=== PATIENT | male | born 1950 | race Caucasian/White ===

== ENCOUNTER → 2021-09-19 | Outpatient (CLI) | payer OTHER ==
--- NOTE | 2021-09-19 13:37 | DIREP ---
PROCEDURE:AORTIC ULTRASOUND COMPARISON:None. INDICATIONS:TOBACCO USER TECHNIQUE:Grayscale ultrasound was performed of the abdominal aorta. Spectral analysis and color-flow are also performed. FINDINGS: PROXIMAL AORTIC DIAMETER (cm):2.0 x 2.0 cmVelocity: 38.4 cm/s MID-AORTIC DIAMETER (cm):1.5 x 1.5 cmVelocity: 29.8 cm/s DISTAL AORTIC DIAMETER (cm):1.2 x 1.7 cmVelocity: 36.5 cm/s RIGHT COMMON ILIAC DIAMETER (cm):1.0 x 0.9 cmVelocity: 118.7 cm/s LEFT COMMON ILIAC DIAMETER (cm):0.9 x 1.2 cmVelocity: 54.3 cm/s CONCLUSION:No abnormality noted. Dictated by: SAIGE Physician on 09/19/2021 at 01:27 PM linda
== END | disposition home or self-care (01) ==
LOC: RAD 07:38
PROVIDERS: ATTEND Nurse Practitioner Family
DX: Z13.6 Encounter for screening for cardiovascular disorders (principal)
CPT/HCPCS: 76770

== ENCOUNTER 2021-10-15 08:44 | Inpatient (IN) | payer OTHER ==
[2021-10-15] VITALS (24 sets, daily range): BP systolic 115–158; BP diastolic 59–100
[~2021-10-15] VITALS: Ht 172.7 cm; Wt 57.4 kg
[2021-10-15] MEDS ORDERED: MORPHINE SULFATE IV STA ×2 (09:12)
[2021-10-15] MEDS ORDERED: ZOFRAN IV STA (09:12)
[2021-10-15] MEDS ORDERED: NS 1000ML 1,000 ML IV STA (09:12)
--- NOTE | 2021-10-15 09:15 | NUR ---
Ambulatory to ED rm6. c/o N/V/D since sunday night. Reports Colonoscopy procedure 06/12/21
[2021-10-15 09:18] LABS: BILIRUBIN,URINE 2+ (NEGATIVE)
--- NOTE | 2021-10-15 09:18 | ER.PDOC ---
General Chief Complaint: Nausea,Vomiting,Diarrhea Stated Complaint: N/V/ABD PAIN Time seen by MD: 09:16 Source: patient Exam Limitations: no limitations History of Present Illness Initial Comments Abdominal pain with nausea and vomiting status post colonoscopy 4 days ago. No fever or chills. He has not had a bowel movement since then. Severity/Quality: moderate, sharpness Radiation: no radiation Associated Symptoms: nausea/vomiting Exacerbated by: nothing Relieved By: nothing Allergies: Coded Allergies: No Known Allergies (Unverified , 10/15/21) Vital Signs First Vital Signs Date Time Temp Pulse Resp B/P (MAP) Pulse Ox O2 Delivery O2 Flow Rate FiO2 10/15/21 09:02 98.4 80 18 95 10/15/21 09:02 141/59 (86) Room Air* 0 21 Last Vital Signs Date Time Temp Pulse Resp B/P (MAP) Pulse Ox O2 Delivery O2 Flow Rate FiO2 10/15/21 10:33 98.4 68 18 148/76 (100) 95 Room Air* 0 21 Past Medical History Medical History: cardiac problems, hypertension Surgical History: other Family History Significant Family History: no pertinent family hx Social History Smoking: greater than 1 pack/day Alcohol Use: heavy Drug Use: none Constitutional: no symptoms reported EENTM: no symptoms reported Respiratory: no symptoms reported Cardiovascular: no symptoms reported Gastrointestinal: see HPI All Other Systems: Reviewed and Negative Physical Exam General Appearance: No Apparent Distress, WD/WN HEENT: PERRL/EOMI, Normal ENT Inspection, TMs Normal, Pharynx Normal Neck: Non-Tender, Full Range of Motion, Supple, Normal Inspection Respiratory: chest non-tender, lungs clear, normal breath sounds, no respiratory distress, no accessory muscle use Cardiovascular: Normal Peripheral Pulses, Regular Rate, Rhythm, No Edema, No Gallop, No JVD, No Murmur Gastrointestinal: Normal Bowel Sounds, No Organomegaly, No Pulsatile Mass, Hypoactive bowel sounds, Distended, Tenderness (generalized) Back: Normal Inspection, No CVA Tenderness, No Vertebral Tenderness Extremities: Normal Range of Motion, Non-Tender, Normal Inspection, No Pedal Edema, No Calf Tenderness, Normal Capillary Refill, Pelvis Stable Neurologic/Psychiatric: statement processor II-XII NML as Tested, No Motor/Sensory Deficits, Alert, Normal Mood/Affect, Oriented x 3 Skin: Normal Color, Warm/Dry Lymphatic: No Adenopathy Results/Orders Results/Orders Orders - CHERELLE ROJAS MD Cbc With Auto Diff (10/15/21 09:12) Comprehensive Metabolic Panel (10/15/21 09:12) Lipase (10/15/21 09:12) PT (10/15/21 09:12) Ct Abd/Pel With Iv Contrast (10/15/21 09:12) Partial Thromboplastin Time. (10/15/21 09:12) Urinalysis (10/15/21 09:12) Lactic Acid(Ml) (10/15/21 09:12) 0.9 % Sodium Chloride (Ns 1000ml) (10/15/21 09:12) Ondansetron Hcl/Pf (Zofran) (10/15/21 09:12) Morphine Sulfate (Morphine Sulfate) (10/15/21 09:12) Urine Culture (10/15/21 UNK) Blood Culture (10/15/21 10:32) Potassium Chloride-0.45% Nacl (Hns 1000m (10/15/21 10:32) Piperacillin Sodium/Tazobactam (Zosyn 3. (10/15/21 10:32) Vital Signs Date Time Temp Pulse Resp B/P (MAP) Pulse Ox O2 Delivery O2 Flow Rate FiO2 10/15/21 10:33 98.4 68 18 148/76 (100) 95 Room Air* 0 21 10/15/21 09:27 98.4 81 18 143/71 (95) 95 Room Air* 0 21 10/15/21 09:02 98.4 80 18 141/59 (86) 95 Room Air* 0 21 10/15/21 09:02 98.4 80 18 10/15/21 09:02 98.4 80 18 95 Administered Medications Medications (Trade) Dose Ordered Sig/Adali Route PRN Reason Start Time Stop Time Status Last Admin Dose Admin Morphine Sulfate (Morphine Sulfate) 4 mg STAT STAT IV 10/15/21 09:12 10/15/21 09:13 UNV 10/15/21 09:24 4 MG Ondansetron HCl (Zofran) 4 mg STAT STAT IV 10/15/21 09:12 10/15/21 09:13 UNV 10/15/21 09:24 4 MG Sodium Chloride 1,000 ml @ 1,200 mls/hr Q50M STAT IV 10/15/21 09:12 10/15/21 10:01 UNV 10/15/21 09:24 1,200 MLS/HR Laboratory Tests Test 10/15/21 09:01 10/15/21 09:12 10/15/21 09:27 White Blood Count 8.2 10^3/uL (4.5-11.0) Red Blood Count 4.56 10^6/uL (4.50-5.90) Hemoglobin 15.6 g/dL (13.9-16.3) Hematocrit 46.6 % (37.0-53.0) Mean Corpuscular Volume 102.2 fL (78-100) H Mean Corpuscular Hemoglobin 34.2 pg (26-34) H Mean Corpuscular Hemoglobin Concent 33.5 g/dL (33-36.5) Red Cell Distribution Width 12.5 % (11.5-14.5) Platelet Count 200 10^3/uL (150-400) Mean Platelet Volume 9.6 fL (7.8-11.0) Neutrophils (%) (Auto) 83.2 % (41.0-85.0) Lymphocytes (%) (Auto) 8.0 % (24.0-44.0) L Monocytes (%) (Auto) 8.0 % (5.0-12.0) Neutrophils # (Auto) 6.8 10^3/uL (1.8-7.7) Lymphocytes # (Auto) 0.66 10^3/uL1 (1.0-4.8) L Monocytes # (Auto) 0.7 10^3/uL (0.3-0.8) Absolute Immature Granulocyte (auto 0.03 10^3 u/L (0-2) Absolute Eosinophils (auto) 0.0 10^3/uL (0.0-0.2) Immature Granulocytes % 0.40 % (0.00-0.50) Eosinophils % 0.2 % (0.0-5.0) Basophils % 0.2 % (0.0-0.2) Basophils # 0.0 10^3/uL (0.0-0.1) Prothrombin Time 9.1 SEC (9.1-11.5) Prothrombin Time INR (Non-Therap) 0.9 Activated Partial Thromboplast Time 27.1 SEC (22.5-33.1) Sodium Level 134 mmol/L (132-145) Potassium Level 3.7 mmol/L (3.6-5.2) Chloride Level 93.0 mmol/L (96-109) L Carbon Dioxide Level 28.4 mmol/L (20.0-32) Anion Gap 16.3 Blood Urea Nitrogen 14 mg/dL (7-18) Creatinine 0.85 mg/dL (0.59-1.40) Estimated GFR () 106.9 (>/=60) Est GFR (CKD-EPI)(Non-Afr Bol[place]ian) 88.4 (>/=60) BUN/Creatinine Ratio 16.0 Glucose Level 106 mg/dL (70-110) Calcium Level 10.1 mg/dL (8.4-10.5) Total Bilirubin 1.5 mg/dL (0.2-1.0) H Aspartate Amino Transferase (AST) 28 U/L (0-35) Alanine Aminotransferase (ALT) 27 U/L (12-78) Alkaline Phosphatase 84 U/L (50-136) Total Protein 8.1 g/dL (6.4-8.2) Albumin 3.4 g/dL (3.4-5.0) Globulin 4.7 Albumin/Globulin Ratio 0.723 Lipase 24 U/L (114-286) L Urine Collection Type UNKNOWN Urine Color FORD Urine Appearance CLEAR Urine Bilirubin 2+ (NEGATIVE) H Urine Ictotest POSITIVE (NEGATIVE) H Urine Ketones TRACE (NEGATIVE) H Urine Specific [place] 1.010 (1.005-1.030) Urine pH 6.0 (4.5-8.0) Urine Protein 1+ (NEGATIVE) H Urine Urobilinogen 4.0 E.U./dL (0.2) Urine Nitrate POSITIVE (NEGATIVE) H Urine Leukocyte Esterase NEGATIVE (NEGATIVE) Urine Glucose (Auto)(UA) NEGATIVE (NEGATIVE) Urine Ketones (Manual) NEGATIVE (NEGATIVE) Urine Blood NEGATIVE (NEGATIVE) Urine RBC 0-2 RBC/HPF (NONE SEEN) Urine WBC 0-2 WBC/HPF (0-2) Urine Squamous Epithelial Cells FEW (<=FEW) Urine Calcium Oxalate Crystals FEW (NONE SEEN) A Urine Bacteria FEW (NONE SEEN) H Lactic Acid Level 1.4 mmol/L (0.5-1.9) Progress Progress CT abdomen/pelvis: Free fluid and small amount of free air is noted in the abdomen compatible with bowel perforation. 2. Multiple dilated loops of small bowel and colon without point of transition compatible with ileus pattern. ER DEPART Departure Time of Disposition: 10:54 Disposition: 09 ADMITTED INPATIENT Impression: Primary Impression: Perforated bowel Additional Impression: UTI (urinary tract infection) Condition: Stable Referrals: RAUL SEGAL (PCP) PRIMARY CARE PROVIDER Comments Admitted to Dr. Gibson, spoke with Dr. Bustamante who is consulting. Duration or Time Spent with Pa: 60 min Problem Qualifiers Additional Impression: UTI (urinary tract infection) Urinary tract infection type: site unspecified Hematuria presence: without hematuria Qualified Codes: N39.0 - Urinary tract infection, site not specified CHERELLE ROJAS MD Oct 15, 2021 09:18
[2021-10-15 09:45] LABS: BASOPHIL % 0.2 % (0.0-0.2); EOSINOPHIL % 0.2 % (0.0-5.0); LYMPHOCYTES # 0.66 10^3/uL1 (1.0-4.8); MEAN CORP HGB 34.2 pg (26-34); MONOCYTES # 0.7 10^3/uL (0.3-0.8); NEUTROPHIL # 6.8 10^3/uL (1.8-7.7); NEUTROPHILS % 83.2 % (41.0-85.0); RED CELL DISTRIBUTION WIDTH 12.5 % (11.5-14.5)
[2021-10-15 09:54] LABS: CARBON DIOXIDE 28.4 mmol/L (20.0-32)
--- NOTE | 2021-10-15 10:30 | DIREP ---
PROCEDURE:CT ABDOMEN/PELVIS W/ CONTRAST COMPARISON:None. INDICATIONS:Generalized abdominal pain and distension S/P colonoscopy 4 days ago TECHNIQUE:Axial images were created through the abdomen and pelvis with non-ionic intravenous contrast material. No oral contrast was administered. Sagittal and coronal reconstructions were performed from source images. FINDINGS: LUNG BASES:4 mm noncalcified nodule right posterior costophrenic sulcus image 11 series 4. Several additional scattered 2-3 mm nodules are also present at the lung bases. Dense coronary vascular calcifications. LIVER:Normal. No significant liver lesions are identified. BILIARY:Normal. No visible dilatation or calcification. PANCREAS:Normal. No lesion, fluid collection, ductal dilatation, or atrophy. SPLEEN:Normal. No enlargement or focal lesion. ADRENALS:Normal. No mass or enlargement. URINARY TRACT:Normal. No focal lesions or hydronephrosis. AORTA/VASCULAR:There are aortic atherosclerotic calcifications present. No aneurysm. RETROPERITONEUM:Normal. No mass or adenopathy. BOWEL/MESENTERY:Multiple dilated loops of small bowel and fluid and gas-filled colon without point of transition. The appearance suggests ileus. There is free fluid noted primarily in the perihepatic region right pericolic gutter together with free intraperitoneal air. The appearance is most consistent with bowel perforation. Site of perforation is not clearly evident. Borderline sized appendix ABDOMINAL WALL:Normal. No mass or hernia. PELVIC ORGANS:Normal. No visible mass. Pelvic organs appropriate for patient age. BONES:Normal for age. No bony lesion or acute fracture. OTHER:Negative. CONCLUSION: 1. Free fluid and small amount of free air is noted in the abdomen compatible with bowel perforation. 2. Multiple dilated loops of small bowel and colon without point of transition compatible with ileus pattern. 3. This report was called by telephone at 10:28 am on October 15, 2021 to John Duarte Mba . Dictated by: Navneet Zhu MD on 10/15/2021 at 10:20 AM
[2021-10-15] MEDS ORDERED: ZOSYN 3.375 GM 3.375 GM in NS 100ML 100 ML IV STA (10:32)
[2021-10-15] MEDS ORDERED: HNS 1000ML/KCL 20MEQ 1,000 ML IV STA (10:32)
--- NOTE | 2021-10-15 10:34 | NUR ---
Lab and diagnostic results compelted. Dr. Lopez [facility]
[2021-10-15] MEDS ORDERED: NS 100ML 100 ML IV ONE ×3 (10:42→19:18)
[2021-10-15] MEDS ORDERED: HNS 1000ML/KCL 20MEQ 1,000 ML ONE (10:42)
--- NOTE | 2021-10-15 10:42 | NUR ---
[facility] Dr. Mba speaking to patient about other facility options.
--- NOTE | 2021-10-15 10:46 | NUR ---
Dr. Woodruff on phone with Dr. Bowles about possible surgery.
--- NOTE | 2021-10-15 11:03 | PCM.EKG ---
[facility] Test Date: 2021-10-15 Test Time: 10:54:39 Pat Name: JUSTIN ALFONSO Department: Room: 340 Gender: M Displayer: TAYLOR : 1950 Requested By: CHERELLE ROJAS Order Number: [id number] Reading MD: Cherelle ROJAS Measurements Intervals [place] Rate: 76 P: 67 [place]: 153 QRS: -1 QRSD: 103 T: 8 QT: 397 QTc: 447 Interpretive Statements Sinus rhythm Borderline low voltage, extremity leads No previous ECG available for comparison Electronically Signed On 10-17-2021 7:21:07 CDT by Cherelle ROJAS Please click the below link to view image of tracing.
--- NOTE | 2021-10-15 11:12 | NUR ---
Pt placement awaiting eval of GI surgeon.
[2021-10-15] MEDS ORDERED: D5LR 1000ML/KCL 20MEQ 1,000 ML IV SCH (12:00)
--- NOTE | 2021-10-15 12:12 | PCM.HP ---
History of Present Illness Reason for Visit: Abdominal pain History of Present Illness 71-year-old male with history of hypertension, cigarette smoker,? COPD presented emergency room with abdominal pain and distention. Patient had a colonoscopy few days ago at the [facility]. Patient started having abdominal pain and distention. Denies fever or chills.Work-up in the emergency room including CT abdomen pelvis:1. Free fluid and small amount of free air is noted in the abdomen compatible with bowel perforation. Showed signs of bowel perforation with free fluid and air. Surgeon was consulted. Patient is being taken to the OR. Past Medical History Cardiac: HTN Pulmonary: COPD Past Surgical History: No pertinent hx Past Social History Smoke: 1 pack per day Drugs: None Travel Hx EBOLA RISK:Travel to/contact w: No Review of Systems Constitutional: No: Fever, Chills Gastrointestinal: Nausea, Abdominal Pain, Other (Distention) Other Review of other 14 systems negative except as mentioned above in history of present illness. Allergies: Coded Allergies: No Known Allergies (Unverified , 10/15/21) Exam Vital Signs Vital Signs Date Time Temp Pulse Resp B/P (MAP) Pulse Ox O2 Delivery O2 Flow Rate FiO2 10/15/21 10:33 98.4 68 18 148/76 (100) 95 Room Air* 0 21 General Appearance: Alert, Oriented X3, mild distress HEENT: Atraumatic, PERRLA Respiratory: Clear to auscultation, Normal air movement Cardiovascular: Regular rate, Normal S1, Normal S2 Abdominal: Other (Distended, tender, bowel sounds hypoactive) Extremities: No clubbing, No cyanosis Skin: No lesions Neuro: Normal speech, Normal tone Psych/Mental Status: Mental status NL, Mood NL Assessment/Plan Assessment/Plan Assessment/Plan 71-year-old male with history of hypertension, cigarette smoker,? COPD presented emergency room with abdominal pain and distention. Patient had a colonoscopy few days ago at the [facility]. Patient started having abdominal pain and distention. Denies fever or chills.Work-up in the emergency room inclu ding CT abdomen pelvis:1. Free fluid and small amount of free air is noted in the abdomen compatible with bowel perforation. Showed signs of bowel perforation with free fluid and air. Surgeon was consulted. Patient is being taken to the OR. Plan Admit N.p.o. IV fluids IV antibiotic Surgeon consulted. Patient is being taken to the OR GI prophylaxis pantoprazole DVT prophylaxis SCDs, further prophylaxis as per surgeon postoperative Reconcile home meds Expect length of stay more than 1 midnight Case discussed with ER physician and surgeon Dr. Bustamante Problems: (1) Perforated bowel Status: Acute ICD Code: K63.1 - Perforation of intestine (nontraumatic) SNOMED: 75922090 (2) Cigarette smoker Status: Chronic ICD Code: F17.210 - Nicotine dependence, cigarettes, uncomplicated SNOMED: 77843686 (3) Hypertension Status: Chronic ICD Code: I10 - Essential (primary) hypertension SNOMED: 30277654 (4) COPD (chronic obstructive pulmonary disease) Status: Chronic ICD Code: J44.9 - Chronic obstructive pulmonary disease, unspecified SNOMED: 43044495 MELINDA VEGA MD Oct 15, 2021 12:12
--- NOTE | 2021-10-15 12:23 | PRM.CONS ---
CONSULTATION CONSULTATION Indication: Asked to see patient for several days of abdominal pain s/p colonoscopy, with free air on CT. HPI/CC: Patient had a colonoscopy in the OR in [place] on Sunday. They were told he had three large polyps removed. They are not aware of where they were or how they were removed. He did not feeling like eating with his family afterward, and just went to bed. When he woke up in the morning on , he had pain in right and left gutter areas, and just did not feel well. He has not eaten or really been unable to drink since then. He has not had a BM, either. He continues to complain of pain across mid abdomen, right and left gutters. He had several episodes of emesis yesterday, and one today. Morphine helped initially, but is now wearing off. PMH?PSH: HTN, COPD PE: Patient is awake, alert and oriented x 3. Neck is supple without lymphadenopathy or bruit. Heart is regular rate and rhythm. Abdomen is slightly firm in the center and distended, minimal to no BS, tender throughout with voluntary guarding. No rigidity. Good pulses and ROM in all extremities. Neurologically, there is no evidence of focal deficits. Studies: Laboratory Tests Test 10/15/21 09:01 10/15/21 09:12 10/15/21 09:27 White Blood Count 8.2 10^3/uL (4.5-11.0) Red Blood Count 4.56 10^6/uL (4.50-5.90) Hemoglobin 15.6 g/dL (13.9-16.3) Hematocrit 46.6 % (37.0-53.0) Mean Corpuscular Volume 102.2 fL (78-100) Mean Corpuscular Hemoglobin 34.2 pg (26-34) Mean Corpuscular Hemoglobin Concent 33.5 g/dL (33-36.5) Red Cell Distribution Width 12.5 % (11.5-14.5) Platelet Count 200 10^3/uL (150-400) Mean Platelet Volume 9.6 fL (7.8-11.0) Neutrophils (%) (Auto) 83.2 % (41.0-85.0) Lymphocytes (%) (Auto) 8.0 % (24.0-44.0) Monocytes (%) (Auto) 8.0 % (5.0-12.0) Neutrophils # (Auto) 6.8 10^3/uL (1.8-7.7) Lymphocytes # (Auto) 0.66 10^3/uL1 (1.0-4.8) Monocytes # (Auto) 0.7 10^3/uL (0.3-0.8) Absolute Immature Granulocyte (auto 0.03 10^3 u/L (0-2) Absolute Eosinophils (auto) 0.0 10^3/uL (0.0-0.2) Immature Granulocytes % 0.40 % (0.00-0.50) Eosinophils % 0.2 % (0.0-5.0) Basophils % 0.2 % (0.0-0.2) Basophils # 0.0 10^3/uL (0.0-0.1) Prothrombin Time 9.1 SEC (9.1-11.5) Prothrombin Time INR (Non-Therap) 0.9 Activated Partial Thromboplast Time 27.1 SEC (22.5-33.1) Sodium Level 134 mmol/L (132-145) Potassium Level 3.7 mmol/L (3.6-5.2) Chloride Level 93.0 mmol/L (96-109) Carbon Dioxide Level 28.4 mmol/L (20.0-32) Anion Gap 16.3 Blood Urea Nitrogen 14 mg/dL (7-18) Creatinine 0.85 mg/dL (0.59-1.40) Estimated GFR () 106.9 (>/=60) Est GFR (CKD-EPI)(Non-Afr [place]ian) 88.4 (>/=60) BUN/Creatinine Ratio 16.0 Glucose Level 106 mg/dL (70-110) Calcium Level 10.1 mg/dL (8.4-10.5) Total Bilirubin 1.5 mg/dL (0.2-1.0) Aspartate Amino Transf (AST/SGOT) 28 U/L (0-35) Alanine Aminotransferase (ALT/SGPT) 27 U/L (12-78) Alkaline Phosphatase 84 U/L (50-136) Total Protein 8.1 g/dL (6.4-8.2) Albumin 3.4 g/dL (3.4-5.0) Globulin 4.7 Albumin/Globulin Ratio 0.723 Lipase 24 U/L (114-286) Urine Collection Type UNKNOWN Urine Color FORD Urine Appearance CLEAR Urine Bilirubin 2+ (NEGATIVE) Urine Ictotest POSITIVE (NEGATIVE) Urine Ketones TRACE (NEGATIVE) Urine Specific [place] 1.010 (1.005-1.030) Urine pH 6.0 (4.5-8.0) Urine Protein 1+ (NEGATIVE) Urine Urobilinogen 4.0 E.U./dL (0.2) Urine Nitrate POSITIVE (NEGATIVE) Urine Leukocyte Esterase NEGATIVE (NEGATIVE) Urine Glucose (Auto)(UA) NEGATIVE (NEGATIVE) Urine Ketones (Manual) NEGATIVE (NEGATIVE) Urine Blood NEGATIVE (NEGATIVE) Urine RBC 0-2 RBC/HPF (NONE SEEN) Urine WBC 0-2 WBC/HPF (0-2) Urine Squamous Epithelial Cells FEW (<=FEW) Urine Calcium Oxalate Crystals FEW (NONE SEEN) Urine Bacteria FEW (NONE SEEN) Lactic Acid Level 1.4 mmol/L (0.5-1.9) A/P: Discussed with the and patient that he has a perforation of the bowel, that likely happened during or immediately after the colonoscopy. Since he is so far out, and has so much free fluid and air, we can not assume that it has sealed. He requires surgery to evaluate his entire colon, washout, and possible drain placement. He was made aware of the possible outcomes, risks, benefits, alternatives, and compldoes not have a ications associated with the procedure. These include, but are not limited to: IN, , dysrhythmia, bleeding, infection, need for drains, bowel repair, bowel resection, placement of drains, ostomy, further procedures and surgeries for subsequent abscesses or possible takedown if ostomy is used at this time. The voice understanding, and wish to proceed. They do not wish to transfer to [place]. OR does not have a surgeon this weekend. Dr. Bergeron has seen the patient and will assist in care. ICU bed reserved for postop. VITALS REVIEW VITALS Vital Sign - Last 24 Hours 10/15/21 10/15/21 10/15/21 10/15/21 09:02 09:02 09:02 09:27 Temp 98.4 98.4 98.4 98.4 Pulse 80 80 80 81 Resp 18 18 18 18 B/P (MAP) 141/59 (86) 143/71 (95) Pulse Ox 95 95 95 O2 Delivery Room Air* Room Air* O2 Flow Rate 0 0 FiO2 21 21 10/15/21 10:33 Temp 98.4 Pulse 68 Resp 18 B/P (MAP) 148/76 (100) Pulse Ox 95 O2 Delivery Room Air* O2 Flow Rate 0 FiO2 21 LABS LAB RESULTS Laboratory Tests Test 10/15/21 09:01 10/15/21 09:12 10/15/21 09:27 White Blood Count 8.2 10^3/uL (4.5-11.0) Red Blood Count 4.56 10^6/uL (4.50-5.90) Hemoglobin 15.6 g/dL (13.9-16.3) Hematocrit 46.6 % (37.0-53.0) Mean Corpuscular Volume 102.2 fL (78-100) Mean Corpuscular Hemoglobin 34.2 pg (26-34) Mean Corpuscular Hemoglobin Concent 33.5 g/dL (33-36.5) Red Cell Distribution Width 12.5 % (11.5-14.5) Platelet Count 200 10^3/uL (150-400) Mean Platelet Volume 9.6 fL (7.8-11.0) Neutrophils (%) (Auto) 83.2 % (41.0-85.0) Lymphocytes (%) (Auto) 8.0 % (24.0-44.0) Monocytes (%) (Auto) 8.0 % (5.0-12.0) Neutrophils # (Auto) 6.8 10^3/uL (1.8-7.7) Lymphocytes # (Auto) 0.66 10^3/uL1 (1.0-4.8) Monocytes # (Auto) 0.7 10^3/uL (0.3-0.8) Absolute Immature Granulocyte (auto 0.03 10^3 u/L (0-2) Absolute Eosinophils (auto) 0.0 10^3/uL (0.0-0.2) Immature Granulocytes % 0.40 % (0.00-0.50) Eosinophils % 0.2 % (0.0-5.0) Basophils % 0.2 % (0.0-0.2) Basophils # 0.0 10^3/uL (0.0-0.1) Prothrombin Time 9.1 SEC (9.1-11.5) Prothrombin Time INR (Non-Therap) 0.9 Activated Partial Thromboplast Time 27.1 SEC (22.5-33.1) Sodium Level 134 mmol/L (132-145) Potassium Level 3.7 mmol/L (3.6-5.2) Chloride Level 93.0 mmol/L (96-109) Carbon Dioxide Level 28.4 mmol/L (20.0-32) Anion Gap 16.3 Blood Urea Nitrogen 14 mg/dL (7-18) Creatinine 0.85 mg/dL (0.59-1.40) Estimated GFR () 106.9 (>/=60) Est GFR (CKD-EPI)(Non-Afr [place]ian) 88.4 (>/=60) BUN/Creatinine Ratio 16.0 Glucose Level 106 mg/dL (70-110) Calcium Level 10.1 mg/dL (8.4-10.5) Total Bilirubin 1.5 mg/dL (0.2-1.0) Aspartate Amino Transf (AST/SGOT) 28 U/L (0-35) Alanine Aminotransferase (ALT/SGPT) 27 U/L (12-78) Alkaline Phosphatase 84 U/L (50-136) Total Protein 8.1 g/dL (6.4-8.2) Albumin 3.4 g/dL (3.4-5.0) Globulin 4.7 Albumin/Globulin Ratio 0.723 Lipase 24 U/L (114-286) Urine Collection Type UNKNOWN Urine Color FORD Urine Appearance CLEAR Urine Bilirubin 2+ (NEGATIVE) Urine Ictotest POSITIVE (NEGATIVE) Urine Ketones TRACE (NEGATIVE) Urine Specific [place] 1.010 (1.005-1.030) Urine pH 6.0 (4.5-8.0) Urine Protein 1+ (NEGATIVE) Urine Urobilinogen 4.0 E.U./dL (0.2) Urine Nitrate POSITIVE (NEGATIVE) Urine Leukocyte Esterase NEGATIVE (NEGATIVE) Urine Glucose (Auto)(UA) NEGATIVE (NEGATIVE) Urine Ketones (Manual) NEGATIVE (NEGATIVE) Urine Blood NEGATIVE (NEGATIVE) Urine RBC 0-2 RBC/HPF (NONE SEEN) Urine WBC 0-2 WBC/HPF (0-2) Urine Squamous Epithelial Cells FEW (<=FEW) Urine Calcium Oxalate Crystals FEW (NONE SEEN) Urine Bacteria FEW (NONE SEEN) Lactic Acid Level 1.4 mmol/L (0.5-1.9) DONAVAN CAMARA MD Oct 15, 2021 12:23
[2021-10-15] MEDS ORDERED: DECADRON ONE (12:32)
[2021-10-15] MEDS ORDERED: XYLOCAINE 2% 5ML VIAL ONE (12:32)
[2021-10-15] MEDS ORDERED: DIPRIVAN IV ONE (12:33)
[2021-10-15] MEDS ORDERED: ZEMURON IV ONE (12:33)
[2021-10-15] MEDS ORDERED: SUBLIMAZE ONE (12:34)
[2021-10-15] MEDS ORDERED: DILAUDID ONE ×2 (12:34→15:28)
[2021-10-15] MEDS ORDERED: SENSORCAINE-MPF 0.25% VIAL ONE (12:36)
[2021-10-15] MEDS ORDERED: WATER ONE (12:41)
[2021-10-15] MEDS ORDERED: SODIUM CHLORIDE IRR BOTTLE IR ONE (12:41)
[2021-10-15] MEDS ORDERED: EXPAREL 266 MG/20 ML VIAL IJ ONE (12:44)
[2021-10-15] MEDS ORDERED: BRIDION IV ONE (12:46)
[2021-10-15] MEDS ORDERED: LACTATED RINGERS 1,000 ML ONE ×3 (12:49→15:52)
[2021-10-15] MEDS ORDERED: XYLOCAINE 1%-EPI 1:100,000 ONE (13:14)
[2021-10-15] MEDS ORDERED: MARCAINE 0.5% ONE ×2 (13:15→13:16)
[2021-10-15] MEDS ORDERED: OFIRMEV 100 ML IV ONE (13:26)
[2021-10-15] MEDS ORDERED: ZOSYN 3.375 GM 3.375 GM in NS 100ML 100 ML IV SCH ×2 (14:00→18:00)
--- NOTE | 2021-10-15 14:55 | PRM.OPH ---
OPERATIVE REPORT OPERATIVE REPORT Indications: Patient status post colonoscopy at the [facility] in [place] on Sunday. He states he has not been able to eat since that time. He presents here with abdominal pain, nausea and vomiting as well as abdominal distention since morning.Patient has been afebrile, and his labs are essentially within normal limits. CT scan showed free air and a large amount of fluid in the hepatic flexure area, and up over the top of the right lobe of the liver. There is also a collection in the left lower quadrant. There is an significant inflammatory reaction in the mesentery in both of these locations also. There is a question if the appendix was slightly thickened. This was a presumed pe rforated viscus, following colonoscopy. Preoperative diagnosis: Abdominal pain and distention following colonoscopy, free air and fluid on CT scan, presumed perforated colon status post colonoscopy, and a possible inflamed or thickened appendix Postoperative diagnosis: Inflammatory fluid/serous fluid noted throughout the abdomen, distended loops of bowel from ileus, thickened inflammatory exudate and adhesions at transverse colon near the hepatic flexure, which revealed a 7 mm in length perforation, with the internal mucosa being black and necrotic, and a similar fluid collection in the left lower quadrant. The appendix was also slightly thickened by palpation and visualization, and serosa appeared healthy. Procedure: Exploratory laparotomy, lysis of adhesions, drainage of intra- abdominal fluid collections/abscesses, excision of perforation site with primary closure, appendectomy with inversion of the stump, placement of drains x2 in the right upper quadrant overlying the liver and near the hepatic flexure, and a second drain in the left lower quadrant. Surgeon: Donavan Camara MD Anesthesia: Harpreet Alejo, [facility], [facility], [facility] Specimens: Cultures of intra-abdominal abscesses/fluid, excision site of perforation, appendix (appendix is in multiple pieces due to its positioning and length of the stump EBL: 21 cc Complications: None Technique of procedure: After full disclosure of the CT findings, and risks of the procedure, the patient and his were advised that they could either take him to [place] for surgery or stay here. They opted to stay here. The consent included the risk, benefits, alternatives, complications, possible outcomes and procedures that would be necessary today. They were made aware that the risks include, but are not limited to: AR, , dysrhythmia, bleeding, perforation, the need for multiple drains, the need for further surgeries or procedures, the possibility of requiring a bowel resection, the possibility of requiring an ostomy, and then subsequently a takedown. They voiced understanding of these issues and wished to proceed. Patient was brought over to the operating room. Patient was then taken back to the operating room on [facility] and transferred to the bed. He was placed in the supine position. Adequate analgesia and anesthesia were obtained, the patient was intubated without incident. A Thomas catheter was placed under sterile conditions, with return of clear dark urine prior to the balloon being inflated The area of the abdomen was shaved, prepped and draped in the usual sterile fashion. A timeout was observed by all staff in room to verify we had the appropriate patient and planned procedure. An NG tube was placed by anesthesia and secured A midline incision from the manubrium to the pubis was outlined with skin marker, moving to the right of the patient's umbilicus. Once patient was asleep and draped, local anesthetic was injected around the umbilicus as well as superiorly and inferiorly approximately 3 inches. Incision was made with a 10 blade. Bovie cautery was used to traverse the subcutaneous tissue, down to the fascia, cauterizing any bleeders along the way. The fascia was opened slowly with electrocautery, and continued down, until a small opening was made approximately 3 inches above the umbilicus in the midline. Suction was utilized. This was clear yellow to slightly inflammatory fluid and exudate. There was no significant foul odor. It was suctioned, and Bovie cautery was used to open the incision the rest of the way. Ultimately, was difficult to reach over the patient's liver, so the incision was expanded approximately 2 inches superiorly. Once the abdomen was opened, cultures were obtained of the fluid collection from the left lower quadrant. These were sent back as specimens. The Bookwalter was placed appropriately. Moistened towels were used against the patient's skin verifying that no bowel was cut underneath the retractors, and it was held open. The small bowel appeared to be distended, but it was mostly air. There is not a significant amount of fluid or solid stool in there. The bowel itself appeared to be healthy. The majority of the colon also appeared to be healthy and soft. As the bowel was run, and I did reach up in the right upper quadrant, to verify we had drainage of all the fluid over the liver. As the transverse colon was run, significant amount of inflammatory exudate, and thickened fat was noted near the hepatic flexure. This tissue appeared to have sealed the colon perforation. It was slowly taken down, and the large perforation of approximately 7mm transversely was noted. Much of this tissue appeared nonviable, and it was trimmed back with an 11 blade. The mucosa on the inside appeared to be black and necrotic as though it was the site of a cautery burn. This was resected, and a primary closure was done in a transverse fashion, utilizing interrupted 2-0 silk. This was tested multiple times, and was watertight. The rest of the tissue appeared healthy. All adhesions in this area were taken down for lysis of adhesions. I then went from the patient's right side to his left. Irrigation was carried out in the hepatic flexure region and up over the liver. Several liters were used to irrigate over the liver, and verify that there were no loculations or other thickened tissue. The small bowel was run from The ligament of Treitz to theAppendix. It all appeared to be normal although slightly distended. No areas appeared nonviable. No areas appeared as though they were anywhere near perforation or separation of serosa. At the appendix did appear slightly thickened and healthy. Due to the possible findings on CT scan and its appearance, I opted to Perform an appendectomy. Hemostats were utilized to make a window between the mesoappendix and the appendix. The appendix was clamped with hemostats x2 proximally, and then 1 distally. It was then sharply divided. Hemostat was also used to go across the mesoappendix which was divided. The mesoappendix was tied off with a stick tie. There was a loss of approximately 4 days of blood from this area. It was then without evidence of leak after the tie. Turned my attention to the stump of the appendix, which appeared rather long, as though it had been held in place and curved secondary to the mesoappendix. This was opened up, and An additional half inch or so of the appendiceal stump was removed with a hemostat at the base. A tie was utilized to tie off the appendix. It was then inverted after a pursestring suture had been placed. The pursestring was tied down as the stump was inverted, and closed quite nicely. There was no evidence of bleed or leak in this area. It was irrigated. Expiration of the left lower quadrant was carried out, and it similarly had a collection of serosal and inflammatory fluid. This was irrigated, and the bowel was run from the peritoneal reflection at the rectum back up all the way around to the appendix again. The only abnormality was that which had been repaired near the hepatic flexure. This was run at least 3 times. The small bowel was run twice, with no other abnormalities being noted. The abdomen was irrigated again with multiple liters, verifying that no loculations existed in the previously known fluid collections overlying the liver or in the left lower quadrant. Francesco drain was placed in the right upper quadrant, and I was careful to lay loop up over the right lobe of the liver, and ending up near but not on the closure at the hepatic flexure. It was secured in place with a 2-0 silk. Similarly, a Francesco drain was placed in the left lower quadrant, and placed down in the dependent portion, near the peritoneal reflection. All the bowel appeared normal again. It was secured with a 2-0 silk also. The retractors were all removed, and the fascia at the abdominal wall was lift ed, so that the small bowel could be placed back in the abdomen.A fish was placed.Looped 0 PDS was used for a fascial closure beginning at the superior aspect, and extending down to just below the umbilicus. The fascia was then removed, and placed at the inferior aspect of the incision. Similarly, looped 0 PDS was utilized from the inferior aspect of the incision, until it met the previous and suture. The needle was cut. The sutures were tied together with good closure and no defects being noted. The subcutaneous tissue was irrigated. Skin jessica were placed. Dressings and binder were placed, including Drain sponges around the drains. Toward the end of the procedure, the urine began to lighten up, as he was better hydrated. Patient was stable throughout the procedure. Due to his age and medical problems, specifically the COPD, and the possibility of worsening postsurgery, patient will be sent to the ICU.Patient discussed with Dr. Monique, the hospitalist, who concurs with plan. Dr. Lopez of the ER was also notified. DONAVAN CAMARA MD Oct 15, 2021 14:55
[2021-10-15] MEDS ORDERED: GENASYME PO PRN (15:00)
[2021-10-15] MEDS ORDERED: D5W-1/2 NS/KCL 20MEQ 1,000 ML IV SCH (15:00)
[2021-10-15] MEDS ORDERED: DILAUDID IV ONE ×2 (15:30→15:40)
--- NOTE | 2021-10-15 15:34 | NUR ---
1330: PER DR HAYNES, BEDREST FOR 2 HOURS (UP AT 1515) AND NS 0.9% AT 100ML/HR PER ONE LITER
[2021-10-15] MEDS: PHENERGAN IV SCH ×2 (16:00→20:35)
[2021-10-15] MEDS: D5LR 1000ML/KCL 20MEQ 1,000 ML IV SCH (17:14)
[2021-10-15] MEDS: LOVENOX SQ SCH (17:30)
--- NOTE | 2021-10-15 17:54 | NUR ---
1559: RECEIVED PATIENT FROM OR S/P EXPLORATORY LAP CLOSURE HEPATIC FLEXURE, EXCISION FROM VIABLE COLON TISSUE, APPY. SERVICES OF DR JAX GO AND DR MELINDA MORENO. VSS. DRESSINGS CLEAN DRY INTACT.
[2021-10-15] MEDS ORDERED: NS 25ML 25 ML IV ONE (19:13)
[2021-10-15] MEDS: ZOSYN 3.375 GM 3.375 GM in NS 100ML 100 ML IV SCH (19:21)
[2021-10-15] MEDS: NICOTINE 21MG PATCH TD SCH (20:42)
[2021-10-16] VITALS (30 sets, daily range): BP systolic 140–182; BP diastolic 54–88
[2021-10-16] MEDS ORDERED: ZOFRAN IV PRN (01:00)
[2021-10-16] MEDS ORDERED: NS 100ML 100 ML IV ONE (01:47)
[2021-10-16] MEDS: MORPHINE SULFATE IV PRN ×2 (01:57→04:43)
[2021-10-16] MEDS: ZOSYN 3.375 GM 3.375 GM in NS 100ML 100 ML IV SCH ×4 (01:58→21:22)
[2021-10-16] MEDS: D5LR 1000ML/KCL 20MEQ 1,000 ML IV SCH ×4 (01:58→21:43)
[2021-10-16] MEDS: PHENERGAN IV SCH ×6 (03:38→21:22)
[2021-10-16] MEDS: LOVENOX SQ SCH ×2 (05:33→18:09)
[2021-10-16 05:51] LABS: BASOPHIL % 0.2 % (0.0-0.2); LYMPHOCYTES # 0.41 10^3/uL1 (1.0-4.8); LYMPHOCYTES % 6.2 % (24.0-44.0); MEAN CORP HGB 33.8 pg (26-34); MONOCYTES # 0.6 10^3/uL (0.3-0.8); MONOCYTES % 9.4 % (5.0-12.0); NEUTROPHIL # 5.6 10^3/uL (1.8-7.7); NEUTROPHILS % 83.9 % (41.0-85.0); PLATELET COUNT 186 10^3/uL (150-400); RED CELL DISTRIBUTION WIDTH 12.4 % (11.5-14.5)
[2021-10-16 06:01] LABS: CARBON DIOXIDE 29.3 mmol/L (20.0-32)
[2021-10-16 06:25] LABS: LYMPHOCYTE 5 % (25-36); MONOCYTE 6 % (3-9); SEGMENTED NEUTROPHILS 89 % (31-76)
[2021-10-16] MEDS ORDERED: KCL 20MEQ/100ML 200 ML IV ONE (08:30)
[2021-10-16] MEDS ORDERED: PROTONIX IV IV SCH (09:00)
[2021-10-16] MEDS: PROTONIX IV IV SCH (09:29)
[2021-10-16] MEDS: NICOTINE 21MG PATCH TD SCH (09:29)
[2021-10-16] MEDS ORDERED: NS 500ML 500 ML IV ONE (09:57)
[2021-10-16] MEDS ORDERED: WATER ONE (11:30)
--- NOTE | 2021-10-16 14:14 | PRM.PN ---
Subjective Subjective Date: Oct 16, 2021 Time: 08:30 Subjective History of Present Illness Reason for Visit: Abdominal pain History of Present Illness 71-year-old male with history of hypertension, cigarette smoker,? COPD presented emergency room with abdominal pain and distention. Patient had a colonoscopy few days ago at the [facility]. Patient started having abdominal p ain and distention. Denies fever or chills.Work-up in the emergency room including CT abdomen pelvis:1. Free fluid and small amount of free air is noted in the abdomen compatible with bowel perforation. Showed signs of bowel perforation with free fluid and air. Surgeon was consulted. Patient is being taken to the OR. Past Medical History Cardiac: HTN Pulmonary: COPD Past Surgical History: No pertinent hx Past Social History Smoke: 1 pack per day Drugs: None S: doing better. POD#1 after Exploratory laparotomy, lysis of adhesions, drainage of intra-abdominal fluid collections/abscesses, excision of perforation site with primary closure, appendectomy with inversion of the stump, placement of drains x2 in the right upper quadrant overlying the liver and near the hepatic flexure, and a second drain in the left lower quadrant. Abd pain is improving. Okayed by GS to transfer to med floor. VSS. VTE VTE Risk Total Score: 4 VTE Risk Score VTE Risk: Score 0-1 = Low Risk (Aggressive mobilization; early ambulation; no VTE prophylaxis required) Score 2: Moderate Risk (Intermittent/Pneumatic Compression Device OR Lovenox/Heparin/Coumadin) Score 3-4: High Risk (Intermittent/Pneumatic Compression Device AND Lovenox/Heparin/Coumadin) Score > or =5: Highest Risk (Intermittent/Pneumatic Compression Device AND Lovenox/Heparin/Coumadin) Antico:Hep/LMWH/Coum/Xarelto: Yes Mechanical device ordered: Yes Review of Systems Constitutional: No: Fever, Chills Gastrointestinal: Nausea, Abdominal Pain, Other (Distention) Allergies: Coded Allergies: No Known Allergies (Unverified , 10/15/21) Objective Vitals and I/O Vital Sign - Last 24 Hours 10/15/21 10/15/21 10/15/21 10/15/21 14:52 14:52 15:02 15:12 Temp 97.1 Pulse 100 100 103 Resp 16 16 16 B/P (MAP) 154/84 (107) 146/100 (115) 153/83 (106) Pulse Ox 100 100 97 O2 Delivery Non-Rebreather Non-Rebreather Non-Rebreather O2 Flow Rate 15.00 15.00 15.00 15.00 10/15/21 10/15/21 10/15/21 10/15/21 15:22 15:32 15:42 15:52 Pulse 103 98 92 Resp 16 16 16 B/P (MAP) 153/83 (106) 158/90 (112) 148/87 (107) Pulse Ox 97 97 97 O2 Delivery Non-Rebreather Nasal Canula Nasal Canula O2 Flow Rate 15.00 3.00 3.00 3.00 10/15/21 10/15/21 10/15/21 10/15/21 15:52 15:59 16:00 16:44 Temp 98.4 97.8 Pulse 81 77 91 Resp 16 21 18 B/P (MAP) 144/83 (103) 144/75 (98) 133/82 (99) Pulse Ox 96 92 96 O2 Delivery Nasal Canula Nasal Cannula* Nasal Cannula* Nasal Cannula O2 Flow Rate 3.00 3 3 3.00 FiO2 32 32 10/15/21 10/15/21 10/15/21 10/15/21 17:00 17:19 17:27 18:00 Pulse 65 62 Resp 20 16 18 B/P (MAP) 122/85 (97) 124/86 (99) Pulse Ox 97 98 97 O2 Delivery Nasal Cannula* Nasal Cannula* Nasal Cannula* O2 Flow Rate 3 2 3 FiO2 32 28 32 10/15/21 10/15/21 10/15/21 10/15/21 18:15 18:30 18:31 18:45 Pulse 62 61 60 61 Resp 20 16 18 22 B/P (MAP) 115/61 (79) Pulse Ox 99 97 99 99 O2 Delivery Nasal Cannula* Nasal Cannula* Nasal Cannula* Nasal Cannula* O2 Flow Rate 3 3 3 3 FiO2 32 32 32 32 10/15/21 10/15/21 10/15/21 10/15/21 19:00 19:02 19:15 19:30 Pulse 63 65 63 64 Resp 20 21 21 12 B/P (MAP) 138/75 (96) Pulse Ox 99 99 100 100 O2 Delivery Nasal Cannula* Nasal Cannula* Nasal Cannula* Nasal Cannula* O2 Flow Rate 3 3 3 3 FiO2 32 32 32 32 10/15/21 10/15/21 10/15/21 10/15/21 19:45 20:00 20:00 20:15 Temp 98.1 Pulse 61 62 63 Resp 17 18 12 B/P (MAP) 134/71 (92) Pulse Ox 98 99 99 O2 Delivery Nasal Cannula* Nasal Cannula Nasal Cannula* Nasal Cannula* O2 Flow Rate 3 2.00 3 3 FiO2 32 32 32 10/15/21 10/15/21 10/15/21 10/15/21 20:30 20:45 21:00 21:15 Pulse 60 61 60 59 Resp 15 16 18 14 B/P (MAP) 130/72 (91) 132/75 (94) Pulse Ox 100 100 100 100 O2 Delivery Nasal Cannula* Nasal Cannula* Nasal Cannula* Nasal Cannula* O2 Flow Rate 3 3 3 3 FiO2 32 32 32 32 10/15/21 10/15/21 10/15/21 10/15/21 21:30 21:31 21:45 22:00 Pulse 62 60 61 62 Resp 20 11 12 12 B/P (MAP) 136/76 (96) 135/68 (90) Pulse Ox 100 100 100 100 O2 Delivery Nasal Cannula* Nasal Cannula* Nasal Cannula* Nasal Cannula* O2 Flow Rate 3 3 3 3 FiO2 32 32 32 32 10/15/21 10/15/21 10/15/21 10/15/21 22:15 22:30 22:45 23:00 Pulse 63 60 62 61 Resp 17 13 16 14 B/P (MAP) 137/63 (87) 138/73 (94) Pulse Ox 100 100 100 100 O2 Delivery Nasal Cannula* Nasal Cannula* Nasal Cannula* Nasal Cannula* O2 Flow Rate 3 3 3 3 FiO2 32 32 32 32 10/15/21 10/15/21 10/15/21 10/15/21 23:15 23:25 23:30 23:31 Pulse 61 62 61 61 Resp 10 18 14 10 B/P (MAP) 144/70 (94) Pulse Ox 100 99 100 100 O2 Delivery Nasal Cannula* Nasal Cannula* Nasal Cannula* Nasal Cannula* O2 Flow Rate 3 2 3 3 FiO2 32 28 32 32 10/15/21 10/16/21 10/16/21 10/16/21 23:45 00:00 00:00 00:15 Temp 98.1 Pulse 61 60 64 Resp 11 13 12 B/P (MAP) 140/68 (92) Pulse Ox 100 100 100 O2 Delivery Nasal Cannula* Nasal Cannula Nasal Cannula* Nasal Cannula* O2 Flow Rate 3 2.00 3 3 FiO2 32 32 32 10/16/21 10/16/21 10/16/21 10/16/21 00:30 00:32 00:45 01:00 Pulse 63 63 65 65 Resp 16 12 12 12 B/P (MAP) 142/67 (92) Pulse Ox 100 99 100 100 O2 Delivery Nasal Cannula* Nasal Cannula* Nasal Cannula* Nasal Cannula* O2 Flow Rate 3 3 3 3 FiO2 32 32 32 32 10/16/21 10/16/21 10/16/21 10/16/21 01:01 01:15 01:30 01:45 Pulse 64 63 67 67 Resp 12 12 16 14 B/P (MAP) 144/68 (93) 140/74 (96) Pulse Ox 100 100 100 100 O2 Delivery Nasal Cannula* Nasal Cannula* Nasal Cannula* Nasal Cannula* O2 Flow Rate 3 3 3 3 FiO2 32 32 32 32 10/16/21 10/16/21 10/16/21 10/16/21 02:00 02:15 02:30 02:45 Pulse 65 67 70 66 Resp 13 14 10 10 B/P (MAP) 147/74 (98) 142/72 (95) Pulse Ox 100 100 100 100 O2 Delivery Nasal Cannula* Nasal Cannula* Nasal Cannula* Nasal Cannula* O2 Flow Rate 3 3 3 3 FiO2 32 32 32 32 10/16/21 10/16/21 10/16/21 10/16/21 03:00 03:15 03:30 03:45 Pulse 68 69 70 71 Resp 11 12 30 21 B/P (MAP) 152/71 (98) 156/71 (99) Pulse Ox 100 100 100 100 O2 Delivery Nasal Cannula* Nasal Cannula* Nasal Cannula* Nasal Cannula* O2 Flow Rate 3 3 2 2 FiO2 32 32 28 28 10/16/21 10/16/21 10/16/21 10/16/21 04:00 04:15 04:30 04:45 Temp 98.2 Pulse 70 67 70 71 Resp 15 11 15 13 B/P (MAP) 152/71 (98) 152/72 (98) Pulse Ox 100 100 100 100 O2 Delivery Nasal Cannula* Nasal Cannula* Nasal Cannula* Nasal Cannula* O2 Flow Rate 2 2 2 2 FiO2 28 28 28 28 810/16/21 10/16/21 10/16/21 05:00 05:15 05:30 05:32 Pulse 72 67 66 66 Resp 15 12 12 13 B/P (MAP) 150/73 (98) Pulse Ox 100 100 100 100 O2 Delivery Nasal Cannula* Nasal Cannula* Nasal Cannula* Nasal Cannula* O2 Flow Rate 2 2 2 2 FiO2 28 10/16/21 10/16/21 10/16/21 10/16/21 05:41 05:45 05:48 06:00 Pulse 67 72 70 Resp 14 19 13 B/P (MAP) 142/68 (92) 149/59 (89) Pulse Ox 100 100 100 O2 Delivery Nasal Cannula* Nasal Cannula* Nasal Cannula Nasal Cannula* O2 Flow Rate 2 2 2.00 2 FiO2 10/16/21 10/16/21 10/16/21 10/16/21 06:45 07:00 07:15 07:30 Pulse 66 66 67 66 Resp 13 6 11 13 B/P (MAP) 151/68 (95) 149/64 (92) Pulse Ox 100 100 100 100 O2 Delivery Nasal Cannula* Nasal Cannula* Nasal Cannula* Nasal Cannula* O2 Flow Rate 2 2 2 2 FiO2 28 10/16/21 10/16/21 10/16/21 10/16/21 07:45 08:00 08:00 08:15 Pulse 65 65 67 Resp 9 17 B/P (MAP) 145/70 (95) Pulse Ox 100 100 100 O2 Delivery Nasal Cannula* Nasal Cannula* Nasal Cannula Nasal Cannula* O2 Flow Rate 2 2 2.00 2 FiO2 10/16/21 10/16/21 10/16/21 10/16/21 08:28 08:31 08:45 09:00 Temp 97.9 Pulse 62 66 65 68 Resp 18 14 16 5 B/P (MAP) 154/73 (100) 164/73 (103) Pulse Ox 98 97 99 98 O2 Delivery Nasal Cannula* Nasal Cannula* Nasal Cannula* Nasal Cannula* O2 Flow Rate 1 2 2 2 FiO2 24 10/16/21 10/16/21 10/16/21 10/16/21 09:15 09:30 09:45 10:00 Pulse 66 65 66 70 Resp 9 13 14 14 B/P (MAP) 161/77 (105) 148/72 (97) Pulse Ox 99 97 99 98 O2 Delivery Nasal Cannula* Nasal Cannula* Nasal Cannula* Nasal Cannula* O2 Flow Rate 2 2 2 2 FiO2 28 28 28 28 10/16/21 10/16/21 10/16/21 10:15 10:31 12:33 Pulse 68 69 Resp 13 20 B/P (MAP) 157/64 (95) Pulse Ox 97 97 O2 Delivery Nasal Cannula* Nasal Cannula* Nasal Cannula O2 Flow Rate 2 2 2.00 FiO2 28 Intake and Output 10/16/21 07:00 Intake Total 4200 ml Output Total 2610 ml Balance 1590 ml General: Alert, Oriented X3, Cooperative, No acute distress, mild distress HEENT: Atraumatic, PERRLA, EOMI, Mucous membr. moist/pink Neck: No JVD Lungs: Clear to auscultation, Normal air movement Heart: Regular rate, Normal S1, Normal S2 Abdomen: Other (Distended, tender, bowel sounds hypoactive) Extremities: No clubbing, No cyanosis Neuro: Normal speech, Strength at 5/5 X4 ext, Normal tone, Sensation intact Psych/Mental Status: Mental status NL, Mood NL All Results(Lab/Rad) Laboratory Tests Test 10/15/21 15:50 10/16/21 04:55 10/16/21 06:08 Pro-B-Type Natriuretic Peptide 350 pg/mL White Blood Count 6.6 10^3/uL Red Blood Count 4.11 10^6/uL Hemoglobin 13.9 g/dL Hematocrit 42.2 % Mean Corpuscular Volume 102.7 fL Mean Corpuscular Hemoglobin 33.8 pg Mean Corpuscular Hemoglobin Concent 32.9 g/dL Red Cell Distribution Width 12.4 % Platelet Count 186 10^3/uL Mean Platelet Volume 10.1 fL Neutrophils (%) (Auto) 83.9 % Lymphocytes (%) (Auto) 6.2 % Monocytes (%) (Auto) 9.4 % Neutrophils # (Auto) 5.6 10^3/uL Lymphocytes # (Auto) 0.41 10^3/uL1 Monocytes # (Auto) 0.6 10^3/uL Absolute Immature Granulocyte (auto 0.02 10^3 u/L Absolute Eosinophils (auto) 0.0 10^3/uL Immature Granulocytes % 0.30 % Eosinophils % 0.0 % Basophils % 0.2 % Basophils # 0.0 10^3/uL Sodium Level 137 mmol/L Potassium Level 3.3 mmol/L Chloride Level 99.0 mmol/L Carbon Dioxide Level 29.3 mmol/L Anion Gap 12.0 Blood Urea Nitrogen 8 mg/dL Creatinine 0.74 mg/dL Estimated GFR () 125.5 Est GFR (CKD-EPI)(Non-Afr Qatari) 103.7 BUN/Creatinine Ratio 10.0 Glucose Level 172 mg/dL Calcium Level 8.5 mg/dL Total Bilirubin 0.9 mg/dL Aspartate Amino Transf (AST/SGOT) 28 U/L Alanine Aminotransferase (ALT/SGPT) 21 U/L Alkaline Phosphatase 50 U/L Total Protein 5.9 g/dL Albumin 2.4 g/dL Globulin 3.5 Albumin/Globulin Ratio 0.685 Segmented Neutrophils 89 % Lymphocytes 5 % Monocytes 6 % Platelet Estimate ADEQUATE Platelet Morphology NORMAL Current Medications Medications (Trade) Dose Ordered Sig/Adali Route PRN Reason Start Time Stop Time Status Last Admin Dose Admin Sodium Chloride 1,000 ml @ 1,200 mls/hr Q50M STAT IV 10/15/21 09:12 10/15/21 13:03 DC 10/15/21 09:24 Ondansetron HCl (Zofran) 4 mg STAT STAT IV 10/15/21 09:12 10/15/21 13:03 DC 10/15/21 09:24 Morphine Sulfate (Morphine Sulfate) 4 mg STAT STAT IV 10/15/21 09:12 10/15/21 13:04 DC 10/15/21 09:24 Potassium Chloride/Sodium Chloride 1,000 ml @ 100 mls/hr Q10H STAT IV 10/15/21 10:32 10/15/21 16:42 DC 10/15/21 10:53 Piperacillin Sod/ Tazobactam Sod 3.375 gm/Sodium Chloride 100 ml @ 200 mls/hr STAT STAT IV 10/15/21 10:32 10/15/21 11:01 DC 10/15/21 10:52 Sodium Chloride 100 ml @ ud STK-MED ONCE IV 10/15/21 10:42 10/15/21 10:42 DC Potassium Chloride/Sodium Chloride 1,000 ml @ ud STK-MED ONCE .ROUTE 10/15/21 10:42 10/15/21 10:42 DC Piperacillin Sod/ Tazobactam Sod 3.375 gm/Sodium Chloride 100 ml @ 200 mls/hr Q6H IV 10/15/21 18:00 10/15/21 20:50 DC Pantoprazole Sodium (Protonix Iv) 40 mg DAILY IV 10/16/21 09:00 10/15/21 20:49 DC Potassium Cl/ Dextrose/Lact Ringer's 1,000 ml @ 100 mls/hr Q10H IV 10/15/21 12:00 10/15/21 20:49 DC Lidocaine HCl (Xylocaine 2% 5ml Vial) 500 mg STK-MED ONCE .ROUTE 10/15/21 12:32 10/15/21 12:33 DC Propofol (Diprivan) 200 mg STK-MED ONCE IV 10/15/21 12:33 10/15/21 12:33 DC Rocuronium Chokio (Zemuron) 100 mg STK-MED ONCE IV 10/15/21 12:33 10/15/21 12:33 DC Hydromorphone HCl (Dilaudid) 2 mg STK-MED ONCE .ROUTE 10/15/21 12:34 10/15/21 12:34 DC Fentanyl Citrate (Sublimaze) 50 mcg STK-MED ONCE .ROUTE 10/15/21 12:34 10/15/21 12:34 DC Bupivacaine HCl (Sensorcaine-Mpf 0.25% Vial) 2.5 mg STK-MED ONCE .ROUTE 10/15/21 12:36 10/15/21 12:37 DC Sodium Chloride (Sodium Chloride Irr Bottle) 1,000 ml STK-MED ONCE IR 10/15/21 12:41 10/15/21 12:42 DC Sterile Water (Water) 1,000 ml STK-MED ONCE .ROUTE 10/15/21 12:41 10/15/21 12:42 DC Morphine Sulfate (Morphine Sulfate) 4 mg STAT STAT IV 10/15/21 09:12 10/15/21 13:04 DC Sodium Chloride 100 ml @ ud STK-MED ONCE IV 10/15/21 13:10 10/15/21 13:10 DC Lidocaine/ Epinephrine (Xylocaine 1%-Epi 1:100,000) 30 ml STK-MED ONCE .ROUTE 10/15/21 13:14 10/15/21 13:15 DC Bupivacaine HCl (Marcaine 0.5%) 1 ml STK-MED ONCE .ROUTE 10/15/21 13:15 10/15/21 13:15 DC Bupivacaine HCl (Marcaine 0.5%) 1 ml STK-MED ONCE .ROUTE 10/15/21 13:16 10/15/21 13:17 DC Acetaminophen 100 ml @ ud STK-MED ONCE IV 10/15/21 13:26 10/15/21 13:26 DC Piperacillin Sod/ Tazobactam Sod 3.375 gm/Sodium Chloride 100 ml @ 200 mls/hr Q6H IV 10/15/21 14:00 10/15/21 15:17 DC 10/15/21 13:15 Promethazine HCl (Phenergan) 12.5 mg Q4HR IV 10/15/21 16:00 11/14/21 15:59 10/15/21 20:35 Pantoprazole Sodium (Protonix Iv) 40 mg DAILY IV 10/16/21 09:00 11/15/21 08:59 10/16/21 09:29 Simethicone (Genasyme) 80 mg Q4 PRN PO GAS/BLOATING 10/15/21 15:00 11/14/21 14:59 Enoxaparin Sodium (Lovenox) 30 mg BID@06,18 SQ 10/15/21 18:00 11/14/21 17:59 10/16/21 05:33 Potassium Chloride/Dextrose/ Sod Cl 1,000 ml @ 140 mls/hr DAILY24 IV 10/15/21 15:00 10/15/21 16:42 DC Piperacillin Sod/ Tazobactam Sod 3.375 gm/Sodium Chloride 100 ml @ 200 mls/hr Q6H IV 10/15/21 19:00 10/25/21 18:59 10/16/21 13:52 Hydromorphone HCl (Dilaudid) 2 mg STK-MED ONCE .ROUTE 10/15/21 15:28 10/15/21 15:28 DC Hydromorphone HCl (Dilaudid) 0.5 mg OT ONCE IV 10/15/21 15:30 10/15/21 20:49 DC 10/15/21 15:32 Hydromorphone HCl (Dilaudid) 0.5 mg OT ONCE IV 10/15/21 15:40 10/15/21 20:49 DC 10/15/21 15:44 Potassium Cl/ Dextrose/Lact Ringer's 1,000 ml @ 130 mls/hr Q7H42M IV 10/15/21 17:00 11/14/21 16:59 10/16/21 01:58 Morphine Sulfate (Morphine Sulfate) 1 mg Q3HR PRN IV PAIN 4 - 6 10/15/21 18:00 11/14/21 17:59 10/16/21 01:57 Morphine Sulfate (Morphine Sulfate) 3 mg Q3HR PRN IV PAIN 7 - 10 10/15/21 18:00 11/14/21 17:59 10/16/21 04:43 Nicotine (Nicotine 21mg Patch) 1 each DAILY TD 10/15/21 21:00 11/14/21 20:59 10/16/21 09:29 Sodium Chloride 25 ml @ ud STK-MED ONCE IV 10/15/21 19:13 10/15/21 19:14 DC Sodium Chloride 100 ml @ ud STK-MED ONCE IV 10/15/21 19:18 10/15/21 19:19 DC Ondansetron HCl (Zofran) 4 mg Q4H PRN IV NAUSEA / VOMITING 10/16/21 01:00 11/15/21 00:59 10/16/21 01:57 Sodium Chloride 100 ml @ ud STK-MED ONCE IV 10/16/21 01:47 10/16/21 01:47 DC Potassium Chloride 200 ml @ 50 mls/hr OT ONCE IV 10/16/21 08:30 10/16/21 12:29 DC 10/16/21 10:15 Sodium Chloride 500 ml @ ud STK-MED ONCE IV 10/16/21 09:57 10/16/21 09:57 DC Sterile Water (Water) 1,000 ml STK-MED ONCE .ROUTE 10/16/21 11:30 10/16/21 11:30 DC Course Sepsis Screening Results: Posi: POSITIVE Sepsis Qualifier/Stage: SEPSIS RISK Duration or Total Time Spent w: 60 min Vitals & review Data Vital Sign - Last 24 Hours 10/15/21 10/15/21 10/15/21 10/15/21 14:52 14:52 15:02 15:12 Temp 97.1 Pulse 100 100 103 Resp 16 16 16 B/P (MAP) 154/84 (107) 146/100 (115) 153/83 (106) Pulse Ox 100 100 97 O2 Delivery Non-Rebreather Non-Rebreather Non-Rebreather O2 Flow Rate 15.00 15.00 15.00 15.00 10/15/21 10/15/21 10/15/21 10/15/21 15:22 15:32 15:42 15:52 Pulse 103 98 92 Resp 16 16 16 B/P (MAP) 153/83 (106) 158/90 (112) 148/87 (107) Pulse Ox 97 97 97 O2 Delivery Non-Rebreather Nasal Canula Nasal Canula O2 Flow Rate 15.00 3.00 3.00 3.00 10/15/21 10/15/21 10/15/21 10/15/21 15:52 15:59 16:00 16:44 Temp 98.4 97.8 Pulse 81 77 91 Resp 16 21 18 B/P (MAP) 144/83 (103) 144/75 (98) 133/82 (99) Pulse Ox 96 92 96 O2 Delivery Nasal Canula Nasal Cannula* Nasal Cannula* Nasal Cannula O2 Flow Rate 3.00 3 3 3.00 FiO2 32 32 10/15/21 10/15/21 10/15/21 10/15/21 17:00 17:19 17:27 18:00 Pulse 65 62 Resp 20 16 18 B/P (MAP) 122/85 (97) 124/86 (99) Pulse Ox 97 98 97 O2 Delivery Nasal Cannula* Nasal Cannula* Nasal Cannula* O2 Flow Rate 3 2 3 FiO2 32 28 32 10/15/21 10/15/21 10/15/21 10/15/21 18:15 18:30 18:31 18:45 Pulse 62 61 60 61 Resp 20 16 18 22 B/P (MAP) 115/61 (79) Pulse Ox 99 97 99 99 O2 Delivery Nasal Cannula* Nasal Cannula* Nasal Cannula* Nasal Cannula* O2 Flow Rate 3 3 3 3 FiO2 32 32 32 32 10/15/21 10/15/21 10/15/21 10/15/21 19:00 19:02 19:15 19:30 Pulse 63 65 63 64 Resp 20 21 21 12 B/P (MAP) 138/75 (96) Pulse Ox 99 99 100 100 O2 Delivery Nasal Cannula* Nasal Cannula* Nasal Cannula* Nasal Cannula* O2 Flow Rate 3 3 3 3 FiO2 32 32 32 32 8/27/22 8/27/22 8/27/22 8/27/22 19:45 20:00 20:00 20:15 Temp 98.1 Pulse 61 62 63 Resp 17 18 12 B/P (MAP) 134/71 (92) Pulse Ox 98 99 99 O2 Delivery Nasal Cannula* Nasal Cannula Nasal Cannula* Nasal Cannula* O2 Flow Rate 3 2.00 3 3 FiO2 32 32 32 10/15/21 10/15/21 10/15/21 10/15/21 20:30 20:45 21:00 21:15 Pulse 60 61 60 59 Resp 15 16 18 14 B/P (MAP) 130/72 (91) 132/75 (94) Pulse Ox 100 100 100 100 O2 Delivery Nasal Cannula* Nasal Cannula* Nasal Cannula* Nasal Cannula* O2 Flow Rate 3 3 3 3 FiO2 32 32 32 32 10/15/21 10/15/21 10/15/21 10/15/21 21:30 21:31 21:45 22:00 Pulse 62 60 61 62 Resp 20 11 12 12 B/P (MAP) 136/76 (96) 135/68 (90) Pulse Ox 100 100 100 100 O2 Delivery Nasal Cannula* Nasal Cannula* Nasal Cannula* Nasal Cannula* O2 Flow Rate 3 3 3 3 FiO2 32 32 32 32 10/15/21 10/15/21 10/15/21 10/15/21 22:15 22:30 22:45 23:00 Pulse 63 60 62 61 Resp 17 13 16 14 B/P (MAP) 137/63 (87) 138/73 (94) Pulse Ox 100 100 100 100 O2 Delivery Nasal Cannula* Nasal Cannula* Nasal Cannula* Nasal Cannula* O2 Flow Rate 3 3 3 3 FiO2 32 32 32 32 10/15/21 10/15/21 10/15/21 10/15/21 23:15 23:25 23:30 23:31 Pulse 61 62 61 61 Resp 10 18 14 10 B/P (MAP) 144/70 (94) Pulse Ox 100 99 100 100 O2 Delivery Nasal Cannula* Nasal Cannula* Nasal Cannula* Nasal Cannula* O2 Flow Rate 3 2 3 3 FiO2 32 28 32 32 10/15/21 10/16/21 10/16/21 10/16/21 23:45 00:00 00:00 00:15 Temp 98.1 Pulse 61 60 64 Resp 11 13 12 B/P (MAP) 140/68 (92) Pulse Ox 100 100 100 O2 Delivery Nasal Cannula* Nasal Cannula Nasal Cannula* Nasal Cannula* O2 Flow Rate 3 2.00 3 3 FiO2 32 32 32 10/16/21 10/16/21 10/16/21 10/16/21 00:30 00:32 00:45 01:00 Pulse 63 63 65 65 Resp 16 12 12 12 B/P (MAP) 142/67 (92) Pulse Ox 100 99 100 100 O2 Delivery Nasal Cannula* Nasal Cannula* Nasal Cannula* Nasal Cannula* O2 Flow Rate 3 3 3 3 FiO2 32 32 32 32 10/16/21 10/16/21 10/16/21 10/16/21 01:01 01:15 01:30 01:45 Pulse 64 63 67 67 Resp 12 12 16 14 B/P (MAP) 144/68 (93) 140/74 (96) Pulse Ox 100 100 100 100 O2 Delivery Nasal Cannula* Nasal Cannula* Nasal Cannula* Nasal Cannula* O2 Flow Rate 3 3 3 3 FiO2 32 32 32 32 10/16/21 10/16/21 10/16/21 10/16/21 02:00 02:15 02:30 02:45 Pulse 65 67 70 66 Resp 13 14 10 10 B/P (MAP) 147/74 (98) 142/72 (95) Pulse Ox 100 100 100 100 O2 Delivery Nasal Cannula* Nasal Cannula* Nasal Cannula* Nasal Cannula* O2 Flow Rate 3 3 3 3 FiO2 32 32 32 32 10/16/21 10/16/21 10/16/21 10/16/21 03:00 03:15 03:30 03:45 Pulse 68 69 70 71 Resp 11 12 30 22 B/P (MAP) 152/71 (98) 156/71 (99) Pulse Ox 100 100 100 100 O2 Delivery Nasal Cannula* Nasal Cannula* Nasal Cannula* Nasal Cannula* O2 Flow Rate 3 3 2 2 FiO2 32 32 28 28 10/16/21 10/16/21 10/16/21 10/16/21 04:00 04:15 04:30 04:45 Temp 98.2 Pulse 70 67 70 71 Resp 15 11 15 13 B/P (MAP) 152/71 (98) 152/72 (98) Pulse Ox 100 100 100 100 O2 Delivery Nasal Cannula* Nasal Cannula* Nasal Cannula* Nasal Cannula* O2 Flow Rate 2 2 2 2 FiO2 28 28 28 28 22 8/28/22 8/28/22 8/28/22 05:00 05:15 05:30 05:32 Pulse 72 67 66 66 Resp 15 12 12 13 B/P (MAP) 150/73 (98) Pulse Ox 100 100 100 100 O2 Delivery Nasal Cannula* Nasal Cannula* Nasal Cannula* Nasal Cannula* O2 Flow Rate 2 2 2 2 FiO2 28 10/16/21 10/16/21 10/16/21 10/16/21 05:41 05:45 05:48 06:00 Pulse 67 72 70 Resp 14 19 13 B/P (MAP) 142/68 (92) 149/59 (89) Pulse Ox 100 100 100 O2 Delivery Nasal Cannula* Nasal Cannula* Nasal Cannula Nasal Cannula* O2 Flow Rate 2 2 2.00 2 FiO2 10/16/21 10/16/21 10/16/21 10/16/21 06:45 07:00 07:15 07:30 Pulse 66 66 67 66 Resp 13 6 11 13 B/P (MAP) 151/68 (95) 149/64 (92) Pulse Ox 100 100 100 100 O2 Delivery Nasal Cannula* Nasal Cannula* Nasal Cannula* Nasal Cannula* O2 Flow Rate 2 2 2 2 FiO2 10/16/21 10/16/21 10/16/21 10/16/21 07:45 08:00 08:00 08:15 Pulse 65 65 67 Resp 9 17 B/P (MAP) 145/70 (95) Pulse Ox 100 100 100 O2 Delivery Nasal Cannula* Nasal Cannula* Nasal Cannula Nasal Cannula* O2 Flow Rate 2 2 2.00 2 FiO2 10/16/21 10/16/21 10/16/21 10/16/21 08:28 08:31 08:45 09:00 Temp 97.9 Pulse 62 66 65 68 Resp 18 14 16 5 B/P (MAP) 154/73 (100) 164/73 (103) Pulse Ox 98 97 99 98 O2 Delivery Nasal Cannula* Nasal Cannula* Nasal Cannula* Nasal Cannula* O2 Flow Rate 1 2 2 2 FiO2 24 10/16/21 10/16/21 10/16/21 10/16/21 09:15 09:30 09:45 10:00 Pulse 66 65 66 70 Resp 9 13 14 14 B/P (MAP) 161/77 (105) 148/72 (97) Pulse Ox 99 97 99 98 O2 Delivery Nasal Cannula* Nasal Cannula* Nasal Cannula* Nasal Cannula* O2 Flow Rate 2 2 2 2 FiO2 28 28 28 28 10/16/21 10/16/21 10/16/21 10:15 10:31 12:33 Pulse 68 69 Resp 13 20 B/P (MAP) 157/64 (95) Pulse Ox 97 97 O2 Delivery Nasal Cannula* Nasal Cannula* Nasal Cannula O2 Flow Rate 2 2 2.00 FiO2 28 28 l Intake and Output 10/16/21 07:00 Intake Total 4200 ml Output Total 2610 ml Balance 1590 ml Laboratory Tests Test 10/15/21 09:01 10/15/21 09:12 10/15/21 09:27 10/15/21 15:50 White Blood Count 8.2 10^3/uL Red Blood Count 4.56 10^6/uL Hemoglobin 15.6 g/dL Hematocrit 46.6 % Mean Corpuscular Volume 102.2 fL Mean Corpuscular Hemoglobin 34.2 pg Mean Corpuscular Hemoglobin Concent 33.5 g/dL Red Cell Distribution Width 12.5 % Platelet Count 200 10^3/uL Mean Platelet Volume 9.6 fL Neutrophils (%) (Auto) 83.2 % Lymphocytes (%) (Auto) 8.0 % Monocytes (%) (Auto) 8.0 % Neutrophils # (Auto) 6.8 10^3/uL Lymphocytes # (Auto) 0.66 10^3/uL1 Monocytes # (Auto) 0.7 10^3/uL Absolute Immature Granulocyte (auto 0.03 10^3 u/L Absolute Eosinophils (auto) 0.0 10^3/uL Immature Granulocytes % 0.40 % Eosinophils % 0.2 % Basophils % 0.2 % Basophils # 0.0 10^3/uL Prothrombin Time 9.1 SEC Prothrombin Time INR (Non-Therap) 0.9 Activated Partial Thromboplast Time 27.1 SEC Sodium Level 134 mmol/L Potassium Level 3.7 mmol/L Chloride Level 93.0 mmol/L Carbon Dioxide Level 28.4 mmol/L Anion Gap 16.3 Blood Urea Nitrogen 14 mg/dL Creatinine 0.85 mg/dL Estimated GFR () 106.9 Est GFR (CKD-EPI)(Non-Afr [place]) 88.4 BUN/Creatinine Ratio 16.0 Glucose Level 106 mg/dL Calcium Level 10.1 mg/dL Total Bilirubin 1.5 mg/dL Aspartate Amino Transf (AST/SGOT) 28 U/L Alanine Aminotransferase (ALT/SGPT) 27 U/L Alkaline Phosphatase 84 U/L Total Protein 8.1 g/dL Albumin 3.4 g/dL Globulin 4.7 Albumin/Globulin Ratio 0.723 Lipase 24 U/L Urine Collection Type UNKNOWN Urine Color FORD Urine Appearance CLEAR Urine Bilirubin 2+ Urine Ictotest POSITIVE Urine Ketones TRACE Urine Specific [place] 1.010 Urine pH 6.0 Urine Protein 1+ Urine Urobilinogen 4.0 E.U./dL Urine Nitrate POSITIVE Urine Leukocyte Esterase NEGATIVE Urine Glucose (Auto)(UA) NEGATIVE Urine Ketones (Manual) NEGATIVE Urine Blood NEGATIVE Urine RBC 0-2 RBC/HPF Urine WBC 0-2 WBC/HPF Urine Squamous Epithelial Cells FEW Urine Calcium Oxalate Crystals FEW Urine Bacteria FEW Lactic Acid Level 1.4 mmol/L Pro-B-Type Natriuretic Peptide 350 pg/mL Test 10/16/21 04:55 10/16/21 06:08 White Blood Count 6.6 10^3/uL Red Blood Count 4.11 10^6/uL Hemoglobin 13.9 g/dL Hematocrit 42.2 % Mean Corpuscular Volume 102.7 fL Mean Corpuscular Hemoglobin 33.8 pg Mean Corpuscular Hemoglobin Concent 32.9 g/dL Red Cell Distribution Width 12.4 % Platelet Count 186 10^3/uL Mean Platelet Volume 10.1 fL Neutrophils (%) (Auto) 83.9 % Lymphocytes (%) (Auto) 6.2 % Monocytes (%) (Auto) 9.4 % Neutrophils # (Auto) 5.6 10^3/uL Lymphocytes # (Auto) 0.41 10^3/uL1 Monocytes # (Auto) 0.6 10^3/uL Absolute Immature Granulocyte (auto 0.02 10^3 u/L Absolute Eosinophils (auto) 0.0 10^3/uL Immature Granulocytes % 0.30 % Eosinophils % 0.0 % Basophils % 0.2 % Basophils # 0.0 10^3/uL Sodium Level 137 mmol/L Potassium Level 3.3 mmol/L Chloride Level 99.0 mmol/L Carbon Dioxide Level 29.3 mmol/L Anion Gap 12.0 Blood Urea Nitrogen 8 mg/dL Creatinine 0.74 mg/dL Estimated GFR () 125.5 Est GFR (CKD-EPI)(Non-Afr [place]) 103.7 BUN/Creatinine Ratio 10.0 Glucose Level 172 mg/dL Calcium Level 8.5 mg/dL Total Bilirubin 0.9 mg/dL Aspartate Amino Transf (AST/SGOT) 28 U/L Alanine Aminotransferase (ALT/SGPT) 21 U/L Alkaline Phosphatase 50 U/L Total Protein 5.9 g/dL Albumin 2.4 g/dL Globulin 3.5 Albumin/Globulin Ratio 0.685 Segmented Neutrophils 89 % Lymphocytes 5 % Monocytes 6 % Platelet Estimate ADEQUATE Platelet Morphology NORMAL Current Medications Medications (Trade) Dose Ordered Sig/Adali PRN Reason Start Time Stop Time Status Last Admin Enoxaparin Sodium (Lovenox) 30 mg BID@06,18 10/15/21 18:00 11/14/21 17:59 10/16/21 05:33 Morphine Sulfate (Morphine Sulfate) 1 mg Q3HR PRN PAIN 4 - 6 10/15/21 18:00 11/14/21 17:59 10/16/21 01:57 Morphine Sulfate (Morphine Sulfate) 3 mg Q3HR PRN PAIN 7 - 10 10/15/21 18:00 11/14/21 17:59 10/16/21 04:43 Nicotine (Nicotine 21mg Patch) 1 each DAILY 10/15/21 21:00 11/14/21 20:59 10/16/21 09:29 Ondansetron HCl (Zofran) 4 mg Q4H PRN NAUSEA / VOMITING 10/16/21 01:00 11/15/21 00:59 10/16/21 01:57 Pantoprazole Sodium (Protonix Iv) 40 mg DAILY 10/16/21 09:00 11/15/21 08:59 10/16/21 09:29 Piperacillin Sod/ Tazobactam Sod 3.375 gm/Sodium Chloride 100 ml @ 200 mls/hr Q6H 10/15/21 19:00 10/25/21 18:59 10/16/21 13:52 Potassium Cl/ Dextrose/Lact Ringer's 1,000 ml @ 130 mls/hr Q7H42M 10/15/21 17:00 11/14/21 16:59 10/16/21 01:58 Promethazine HCl (Phenergan) 12.5 mg Q4HR 10/15/21 16:00 11/14/21 15:59 10/15/21 20:35 Simethicone (Genasyme) 80 mg Q4 PRN GAS/BLOATING 10/15/21 15:00 11/14/21 14:59 LEVEL 1 SEPSIS INFECTION CRITE: Abdominal Pain, Recent Invasive Procedure LEVEL 2-SIRS (LIST ALL THAT AP: None/Not assessed Cardiovascular Evidence: Not Assessed or None Hematologic Evidence: None/Not assessed Hepatic Evidence: None/Not assessed Metabolic Evidence: None/Not assessed Neurological Evidence: None/Not assessed Respiratory Evidence: Need for O2 to keep>90%, O2 SAT<90room air Renal Evidence: None/Not assessed O2 Sat by Pulse Oximetry: 97 Oxygen Flow Rate: 2.00 Assessment/Plan Assessment/Plan Assessment/Plan Problems: (1) Perforated bowel Status: Acute ICD Code: K63.1 - Perforation of intestine (nontraumatic) POD#1 exp lap. Improving. OK to transfer to Med/Surg floor. (2) Cigarette smoker Status: Chronic ICD Code: F17.210 - Nicotine dependence, cigarettes, uncomplicated Declines patch. (3) Hypertension Status: Chronic ICD Code: I10 - Essential (primary) hypertension Continue monitoring bp. (4) COPD (chronic obstructive pulmonary disease) Status: Chronic ICD Code: J44.9 - Chronic obstructive pulmonary disease, unspecified Stable, not in exacerbation. N.p.o. IV fluids To the floor. GI prophylaxis pantoprazole DVT prophylaxis SCDs and lovenox. Expect length of stay more than 1 midnight Case discussed with surgeon SHARON Champion MD Oct 16, 2021 14:14
--- NOTE | 2021-10-16 19:22 | NUR ---
Critical Lab Lab reports gram + cocci in one of four aerobic bottles for blood culture. This nurse verbally reported to physician at this time.
--- NOTE | 2021-10-16 22:01 | NUR ---
PT reported to this nurse that he is experiencing "creepy" lucid dreams that he believes to be related to the medications he is receiving. Will continue to monitor for side effects.
[2021-10-16] MEDS ORDERED: PHENERGAN IV PRN (23:00)
[2021-10-17] MEDS: ZOSYN 3.375 GM 3.375 GM in NS 100ML 100 ML IV SCH ×5 (03:58→21:09)
[2021-10-17 04:19] VITALS: BP 147/77
[2021-10-17 05:16] LABS: MEAN CORP HGB 33.9 pg (26-34); RED CELL DISTRIBUTION WIDTH 12.1 % (11.5-14.5)
[2021-10-17 05:36] LABS: CARBON DIOXIDE 27.9 mmol/L (20.0-32)
[2021-10-17] MEDS: LOVENOX SQ SCH ×2 (06:00→17:01)
[2021-10-17] MEDS: D5LR 1000ML/KCL 20MEQ 1,000 ML IV SCH ×2 (07:01→14:57)
[2021-10-17] MEDS: NICOTINE 21MG PATCH TD SCH (08:23)
[2021-10-17] MEDS: PROTONIX IV IV SCH (08:23)
[2021-10-17 09:19] VITALS: BP 159/85
[2021-10-17] MEDS ORDERED: KCL 20MEQ/100ML 100 ML IV ONE ×2 (09:30)
[2021-10-17] MEDS: DULCOLAX RC SCH (09:33)
--- NOTE | 2021-10-17 09:50 | PRM.PN ---
VTE VTE Risk assessment Ambulating, SCDs, lovenox. VTE Risk Total Score: 4 VTE Risk Score VTE Risk: Score 0-1 = Low Risk (Aggressive mobilization; early ambulation; no VTE prophylaxis required) Score 2: Moderate Risk (Intermittent/Pneumatic Compression Device OR Lovenox/Heparin/Coumadin) Score 3-4: High Risk (Intermittent/Pneumatic Compression Device AND Lovenox/Heparin/Coumadin) Score > or =5: Highest Risk (Intermittent/Pneumatic Compression Device AND Lovenox/Heparin/Coumadin) Antico:Hep/LMWH/Coum/Xarelto: Yes Mechanical device ordered: Yes Progress Note Post-OP Subjective Date: Oct 16, 2021 Time: 11:00 Pre-Operative DX: perforated viscus/colon s/p colonoscopy, UTI Post-OP DX: perforated necrotic transverse colon near hepatic flexure Physician Notes: Patient is POD 1 . No complaints, other than minimal pain. Feels better overall. No nausea, no BM, no flatus. Using IS well per nursing staff. Has been up at side of bed but not ambulated or been up in a chair yet. GIDEON output still high, but mostly serous. AFVSS. Labs mostly normal. Objective Review IO, Exams,& Results Problems Acute/Active Problems: (1) Perforated bowel (2) UTI (urinary tract infection) Vital Signs Date Time Temp Pulse Resp B/P (MAP) Pulse Ox O2 Delivery O2 Flow Rate FiO2 10/17/21 09:19 98.0 63 16 159/85 (109) 94 Room Air* 0 21 Intake and Output 10/17/21 07:00 Intake Total 0 ml Output Total 2900 ml Balance -2900 ml Intake Oral 0 ml Output Urine Total 2900 ml Laboratory Tests Test 10/15/21 15:50 10/16/21 04:55 10/16/21 06:08 10/17/21 04:58 Pro-B-Type Natriuretic Peptide 350 pg/mL White Blood Count 6.6 10^3/uL 6.8 10^3/uL Red Blood Count 4.11 10^6/uL 4.13 10^6/uL Hemoglobin 13.9 g/dL 14.0 g/dL Hematocrit 42.2 % 41.6 % Mean Corpuscular Volume 102.7 fL 100.7 fL Mean Corpuscular Hemoglobin 33.8 pg 33.9 pg Mean Corpuscular Hemoglobin Concent 32.9 g/dL 33.7 g/dL Red Cell Distribution Width 12.4 % 12.1 % Platelet Count 186 10^3/uL 212 10^3/uL Mean Platelet Volume 10.1 fL 9.3 fL Neutrophils (%) (Auto) 83.9 % Lymphocytes (%) (Auto) 6.2 % Monocytes (%) (Auto) 9.4 % Neutrophils # (Auto) 5.6 10^3/uL Lymphocytes # (Auto) 0.41 10^3/uL1 Monocytes # (Auto) 0.6 10^3/uL Absolute Immature Granulocyte (auto 0.02 10^3 u/L Absolute Eosinophils (auto) 0.0 10^3/uL Immature Granulocytes % 0.30 % Eosinophils % 0.0 % Basophils % 0.2 % Basophils # 0.0 10^3/uL Sodium Level 137 mmol/L 137 mmol/L Potassium Level 3.3 mmol/L 3.2 mmol/L Chloride Level 99.0 mmol/L 101.0 mmol/L Carbon Dioxide Level 29.3 mmol/L 27.9 mmol/L Anion Gap 12.0 11.3 Blood Urea Nitrogen 8 mg/dL 4 mg/dL Creatinine 0.74 mg/dL 0.67 mg/dL Estimated GFR () 125.5 140.7 Est GFR (CKD-EPI)(Non-Afr [place]raini) 103.7 116.3 BUN/Creatinine Ratio 10.0 5.0 Glucose Level 172 mg/dL 99 mg/dL Calcium Level 8.5 mg/dL 8.4 mg/dL Total Bilirubin 0.9 mg/dL 1.0 mg/dL Aspartate Amino Transf (AST/SGOT) 28 U/L 24 U/L Alanine Aminotransferase (ALT/SGPT) 21 U/L 21 U/L Alkaline Phosphatase 50 U/L 53 U/L Total Protein 5.9 g/dL 6.1 g/dL Albumin 2.4 g/dL 2.4 g/dL Globulin 3.5 3.7 Albumin/Globulin Ratio 0.685 0.648 Segmented Neutrophils 89 % Lymphocytes 5 % Monocytes 6 % Platelet Estimate ADEQUATE Platelet Morphology NORMAL Current Medications Medications (Trade) Dose Ordered Sig/Adali PRN Reason Start Time Stop Time Status Last Admin Bisacodyl (Dulcolax) 10 mg DAILY 10/17/21 09:00 11/16/21 08:59 10/17/21 09:33 Enoxaparin Sodium (Lovenox) 30 mg BID@06,18 10/15/21 18:00 11/14/21 17:59 10/17/21 06:00 Morphine Sulfate (Morphine Sulfate) 1 mg Q3HR PRN PAIN 4 - 6 10/15/21 18:00 11/14/21 17:59 10/16/21 01:57 Morphine Sulfate (Morphine Sulfate) 3 mg Q3HR PRN PAIN 7 - 10 10/15/21 18:00 11/14/21 17:59 10/16/21 04:43 Nicotine (Nicotine 21mg Patch) 1 each DAILY 10/15/21 21:00 11/14/21 20:59 10/17/21 08:23 Ondansetron HCl (Zofran) 4 mg Q4H PRN NAUSEA / VOMITING 10/16/21 01:00 11/15/21 00:59 10/16/21 01:57 Pantoprazole Sodium (Protonix Iv) 40 mg DAILY 10/16/21 09:00 11/15/21 08:59 10/17/21 08:23 Piperacillin Sod/ Tazobactam Sod 3.375 gm/Sodium Chloride 100 ml @ 200 mls/hr Q6H 10/17/21 03:00 10/26/21 03:00 10/17/21 08:23 Potassium Cl/ Dextrose/Lact Ringer's 1,000 ml @ 130 mls/hr Q7H42M 10/15/21 17:00 11/14/21 16:59 10/17/21 07:01 Promethazine HCl (Phenergan) 25 mg Q4 PRN NAUSEA / VOMITING 10/16/21 23:00 11/15/21 22:59 Simethicone (Genasyme) 80 mg Q4 PRN GAS/BLOATING 10/15/21 15:00 11/14/21 14:59 DONAVAN Lowe MD Anaerobic Culture(Ref) (10/15/21 14:20) Pantoprazole Sodium (Protonix Iv) (10/16/21 09:00) Simethicone (Genasyme) (10/15/21 15:00) Enoxaparin Sodium (Lovenox) (10/15/21 18:00) Rt Incentive Spirometry (10/15/21 14:56) Intake & Output (10/15/21 14:56) [place] To [place] (10/15/21 14:56) Gideon To Bulb Suction (10/15/21 14:56) Ngt To Lis (10/15/21 14:56) Elevate Hob 30 Degree (10/15/21 14:56) Scd's While In Bed (10/15/21 14:56) Ambulate In Hallway With Asst. (10/15/21 14:56) Up In Chair (10/15/21 14:56) Admit Orders (10/15/21 14:56) Rt Request For Service (10/15/21 14:56) Miscellaneous (10/15/21 14:56) Potassium Chloride In Lr-D5 (D5lr 1000ml (10/15/21 17:00) Morphine Sulfate (Morphine Sulfate) (10/15/21 18:00) Morphine Sulfate (Morphine Sulfate) (10/15/21 18:00) Ondansetron Hcl/Pf (Zofran) (10/16/21 01:00) Promethazine Hcl (Phenergan) (10/16/21 23:00) Piperacillin Sodium/Tazobactam (Zosyn 3. (10/17/21 03:00) Bisacodyl (Dulcolax) (10/17/21 09:00) Heart: Regular rate, Normal S1, Normal S2 Abdomen: Soft, Other (Distended, tender, bowel sounds hypoactive) Post Operative Incision Status: hypoacttive BS, gen tenderness, Incision and drain sites clean, dry, intact Lungs: Clear to auscultation, Normal air movement Skin: No rashes, No breakdown, No significant lesion Complications/Observations Doing well overall. D/w nurse later in day, and marcelo was having weird dreams, possibly related to the Phenergan. Changed to Zofran, and phenergan only for break through pain. Changes in Treatment Transfer to floor, increase ambulation, dulcolax suppository in next 24 hr. Possibly d/c richter in AM. Will get CT before d/c drains. Assessment & Plan: Problems/Diagnosis: (1) Perforated bowel ICD Code: K63.1 - Perforation of intestine (nontraumatic) SNOMED: [id number] Status: Acute Assessment Doing well overall. Drain output still high. Will likely go up as ambulation increases. Continue antibiotics and and increase ambulation/IS. Await return of bowel function before d/c NGT. Plan Transfer to floor. D/c richter in AM. Increase activity and IS. CT tomorrow before consider pulling drains.Await return of bowel function. DONAVAN CAMARA MD Oct 17, 2021 09:50
--- NOTE | 2021-10-17 10:37 | DIET.OP ---
Nutrition Asmt/Malnutrit 2-17 Actual Date of Review: Oct 17, 2021 Actual Time Reviewed Asmt: 10:30 Nutritional Screening: Malnutr/Diet Consult Diagnosis: Perforated Bowel Pertinent Medical Hx/Surgical: HTN, COpd, Colonscopy few days ago, surgery 10/15 to close perforation. Subjective Information: 71 yo m, 1 pack day smoker, presented with N/A. abdominal pain, discmfort and distention. Hasnt been able to eat past couple of days. Reveleaed in ER had perforated colon. has NG tube and no bowel sounds, still NPO, diet has not advanced. Current Diet Order/Nutrition S: NPO Patient /S.O: Not Indicated Pertinent Meds Protonix, Zofran, KCL, Dulcolax, Lovenox, Nicotine Patch. Pertinent Labs Hgb 14.0, Hct 41.6, Na+ 137, K+ 3.2L, BUN 4L, Cr .67, Glu 99, Ca+ 8.4, TP 6.2, Alb 2.4 Height (Inches): 68 Current Weight: 21 %IBW: 78 Recent Weight Change: No Weight Status: Underweight (78% IBw, BMI low for age and gender) GI Symptoms: [place] (N/V upon admission), None Food Allergies: No (NKFA) Cultural/Ethnic/Voodoo [place]: unknown Usual Diet at Home: unable to obtain Skin Integrity/Comment: No (surgical incision and drainage) Current %PO: NPO BEE in Kcals: Use Current Weight Calories/Kcals/K-35 Kcals Calculated: 7272-4163 Protein: Use Current Weight Protein g/k.2-1.5 Protein Calculated: 83-110 Fluid: ml: 1838-1430 (25-30) or per MD order Nutritional Problem: Nutr. 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 Expected Outcomes Stable with adequate hydration, labs WNL, skin integrity, wound healing, nut rition needs met within 3 days. Serum Albumin g/dl: 2.4-3.0 Moderate) Malnutrtion/Nutrition Risk Edu: No moderate nutrition risk RD Follow-Up Date: Oct 18, 2021 Notificiation Needed?: Yes (Actvie [place] Protein TID when diet is advanced) NU ECHOLS Oct 17, 2021 10:37
--- NOTE | 2021-10-17 15:14 | DIREP ---
PROCEDURE:CT ABDOMEN/PELVIS W/ CONTRAST COMPARISON:[facility], CT, CT ABD/PELVIS W/ CONTRAST, 10/15/2021, 09:57 AM. INDICATIONS:perforated colon after colonoscopy, trans near hep flex, previous CT TECHNIQUE:Axial images were created through the abdomen and pelvis with non-ionic intravenous contrast material. No oral contrast was administered. Sagittal and coronal reconstructions were performed from source images. FINDINGS: LUNG BASES:Bilateral pleural effusions with mild atelectasis of adjacent lung parenchyma which has appeared since October 15 2021. LIVER:Normal. No significant liver lesions are identified. BILIARY:Normal. No visible dilatation or calcification. PANCREAS:Normal. No lesion, fluid collection, ductal dilatation, or atrophy. SPLEEN:Normal. No enlargement or focal lesion. ADRENALS:Normal. No mass or enlargement. URINARY TRACT:Normal. No focal lesions or hydronephrosis. AORTA/VASCULAR:Normal. No aneurysm. RETROPERITONEUM:Normal. No mass or adenopathy. BOWEL/MESENTERY:Normal. There is no intestinal obstruction, free fluid, free air or mesenteric inflammatory changes. ABDOMINAL WALL:Postoperative changes with metallic clips in the anterior abdominal and pelvic wall and with surgical drainage tubes in the right abdomen and left pelvis. Free fluid in the right pericolic gutter seen on October 15 2021 has resolved. PELVIC ORGANS:Normal. No visible mass. Pelvic organs appropriate for patient age. BONES:Normal for age. No bony lesion or acute fracture. OTHER:Interval placement of a nasogastric tube with its tip in the body of the stomach.. CONCLUSION: 1. Postoperative changes in the abdomen and pelvis since the previous study dated October 15 with clips in the anterior abdominal and pelvic wall and with surgical drainage tubes in the right abdomen and left pelvis. 2. A nasogastric tube is identified with its tip in the body of the stomach. 3. There is persistent dilatation of loops of small bowel which could be related to adynamic ileus or possible mechanical small bowel obstruction; however, a definite transition zone is not identified. 4. Fluid noted in the right pericolic gutter on October 15 is no longer identified. 5. Interval appearance of small bilateral pleural effusions with atelectasis of adjacent lung parenchyma since October 15. Dictated by: Pradip Huitron M.D. on 10/17/2021 at 03:04 PM
--- NOTE | 2021-10-17 16:33 | PRM.PN ---
Subjective Subjective Date: Oct 17, 2021 Time: 08:30 Subjective History of Present Illness Reason for Visit: Abdominal pain History of Present Illness 71-year-old male with history of hypertension, cigarette smoker,? COPD presented emergency room with abdominal pain and distention. Patient had a colonoscopy few days ago at the [facility]. Patient started having abdominal p ain and distention. Denies fever or chills.Work-up in the emergency room including CT abdomen pelvis:1. Free fluid and small amount of free air is noted in the abdomen compatible with bowel perforation. Showed signs of bowel perforation with free fluid and air. Surgeon was consulted. Patient is being taken to the OR. Past Medical History Cardiac: HTN Pulmonary: COPD Past Surgical History: No pertinent hx Past Social History Smoke: 1 pack per day Drugs: None S: Patient is slowly improving.doing better. POD#1 after Exploratory laparotomy, lysis of adhesions, drainage of intra-abdominal fluid collections/abscesses, excision of perforation site with primary closure, appendectomy with inversion of the stump, placement of drains x2 in the right upper quadrant overlying the liver and near the hepatic flexure, and a second drain in the left lower quadrant. Abd pain is improving.. VSS. Potassium is 3.2. Patient remains on Zosyn. VTE VTE Risk Total Score: 4 VTE Risk Score VTE Risk: Score 0-1 = Low Risk (Aggressive mobilization; early ambulation; no VTE prophylaxis required) Score 2: Moderate Risk (Intermittent/Pneumatic Compression Device OR Lovenox/Heparin/Coumadin) Score 3-4: High Risk (Intermittent/Pneumatic Compression Device AND Lovenox/Heparin/Coumadin) Score > or =5: Highest Risk (Intermittent/Pneumatic Compression Device AND Lovenox/Heparin/Coumadin) Antico:Hep/LMWH/Coum/Xarelto: Yes Mechanical device ordered: Yes Review of Systems Constitutional: No: Fever, Chills Gastrointestinal: Nausea, Abdominal Pain, Other (Distention) Allergies: Coded Allergies: No Known Allergies (Unverified , 10/15/21) Objective Vitals and I/O Vital Sign - Last 24 Hours 10/16/21 10/16/21 10/16/21 10/17/21 17:48 20:51 21:56 04:19 Temp 98.4 98.6 Pulse 82 82 70 Resp 17 17 16 B/P (MAP) 158/88 (111) 147/77 (100) Pulse Ox 96 96 100 O2 Delivery Nasal Cannula Room Air* Nasal Cannula* Room Air* O2 Flow Rate 2.00 0 2 0 FiO2 21 28 10/17/21 10/17/21 10/17/21 10/17/21 06:43 07:33 08:52 09:19 Temp 98.0 Pulse 80 63 Resp 17 16 B/P (MAP) 159/85 (109) Pulse Ox 93 94 O2 Delivery Room Air Room Air Room Air* Room Air* Nasal Cannula* O2 Flow Rate 0.00 0 0 FiO2 N/A 21 Intake and Output 10/17/21 07:00 Intake Total 0 ml Output Total 2900 ml Balance -2900 ml General: Alert, Oriented X3, Cooperative, No acute distress, mild distress HEENT: Atraumatic, PERRLA, EOMI, Mucous membr. moist/pink Neck: Supple, No JVD Lungs: Clear to auscultation, Normal air movement Heart: Regular rate, Normal S1, Normal S2 Abdomen: Soft, Other (Distended, tender, bowel sounds hypoactive) Extremities: No clubbing, No cyanosis, No edema Skin: No rashes, No breakdown, No significant lesion Neuro: Normal speech, Strength at 5/5 X4 ext, Normal tone, Sensation intact Psych/Mental Status: Mental status NL, Mood NL All Results(Lab/Rad) Laboratory Tests Test 10/15/21 15:50 10/16/21 04:55 10/16/21 06:08 Pro-B-Type Natriuretic Peptide 350 pg/mL White Blood Count 6.6 10^3/uL Red Blood Count 4.11 10^6/uL Hemoglobin 13.9 g/dL Hematocrit 42.2 % Mean Corpuscular Volume 102.7 fL Mean Corpuscular Hemoglobin 33.8 pg Mean Corpuscular Hemoglobin Concent 32.9 g/dL Red Cell Distribution Width 12.4 % Platelet Count 186 10^3/uL Mean Platelet Volume 10.1 fL Neutrophils (%) (Auto) 83.9 % Lymphocytes (%) (Auto) 6.2 % Monocytes (%) (Auto) 9.4 % Neutrophils # (Auto) 5.6 10^3/uL Lymphocytes # (Auto) 0.41 10^3/uL1 Monocytes # (Auto) 0.6 10^3/uL Absolute Immature Granulocyte (auto 0.02 10^3 u/L Absolute Eosinophils (auto) 0.0 10^3/uL Immature Granulocytes % 0.30 % Eosinophils % 0.0 % Basophils % 0.2 % Basophils # 0.0 10^3/uL Sodium Level 137 mmol/L Potassium Level 3.3 mmol/L Chloride Level 99.0 mmol/L Carbon Dioxide Level 29.3 mmol/L Anion Gap 12.0 Blood Urea Nitrogen 8 mg/dL Creatinine 0.74 mg/dL Estimated GFR () 125.5 Est GFR (CKD-EPI)(Non-Afr [place]an) 103.7 BUN/Creatinine Ratio 10.0 Glucose Level 172 mg/dL Calcium Level 8.5 mg/dL Total Bilirubin 0.9 mg/dL Aspartate Amino Transf (AST/SGOT) 28 U/L Alanine Aminotransferase (ALT/SGPT) 21 U/L Alkaline Phosphatase 50 U/L Total Protein 5.9 g/dL Albumin 2.4 g/dL Globulin 3.5 Albumin/Globulin Ratio 0.685 Segmented Neutrophils 89 % Lymphocytes 5 % Monocytes 6 % Platelet Estimate ADEQUATE Platelet Morphology NORMAL Current Medications Medications (Trade) Dose Ordered Sig/Adali Route PRN Reason Start Time Stop Time Status Last Admin Dose Admin Sodium Chloride 1,000 ml @ 1,200 mls/hr Q50M STAT IV 10/15/21 09:12 10/15/21 13:03 DC 10/15/21 09:24 Ondansetron HCl (Zofran) 4 mg STAT STAT IV 10/15/21 09:12 10/15/21 13:03 DC 10/15/21 09:24 Morphine Sulfate (Morphine Sulfate) 4 mg STAT STAT IV 10/15/21 09:12 10/15/21 13:04 DC 10/15/21 09:24 Potassium Chloride/Sodium Chloride 1,000 ml @ 100 mls/hr Q10H STAT IV 10/15/21 10:32 10/15/21 16:42 DC 10/15/21 10:53 Piperacillin Sod/ Tazobactam Sod 3.375 gm/Sodium Chloride 100 ml @ 200 mls/hr STAT STAT IV 10/15/21 10:32 10/15/21 11:01 DC 10/15/21 10:52 Sodium Chloride 100 ml @ ud STK-MED ONCE IV 10/15/21 10:42 10/15/21 10:42 DC Potassium Chloride/Sodium Chloride 1,000 ml @ ud STK-MED ONCE .ROUTE 10/15/21 10:42 10/15/21 10:42 DC Piperacillin Sod/ Tazobactam Sod 3.375 gm/Sodium Chloride 100 ml @ 200 mls/hr Q6H IV 10/15/21 18:00 10/15/21 20:50 DC Pantoprazole Sodium (Protonix Iv) 40 mg DAILY IV 10/16/21 09:00 10/15/21 20:49 DC Potassium Cl/ Dextrose/Lact Ringer's 1,000 ml @ 100 mls/hr Q10H IV 10/15/21 12:00 10/15/21 20:49 DC Lidocaine HCl (Xylocaine 2% 5ml Vial) 500 mg STK-MED ONCE .ROUTE 10/15/21 12:32 10/15/21 12:33 DC Propofol (Diprivan) 200 mg STK-MED ONCE IV 10/15/21 12:33 10/15/21 12:33 DC Rocuronium Stephens (Zemuron) 100 mg STK-MED ONCE IV 10/15/21 12:33 10/15/21 12:33 DC Hydromorphone HCl (Dilaudid) 2 mg STK-MED ONCE .ROUTE 10/15/21 12:34 10/15/21 12:34 DC Fentanyl Citrate (Sublimaze) 50 mcg STK-MED ONCE .ROUTE 10/15/21 12:34 10/15/21 12:34 DC Bupivacaine HCl (Sensorcaine-Mpf 0.25% Vial) 2.5 mg STK-MED ONCE .ROUTE 10/15/21 12:36 10/15/21 12:37 DC Sodium Chloride (Sodium Chloride Irr Bottle) 1,000 ml STK-MED ONCE IR 10/15/21 12:41 10/15/21 12:42 DC Sterile Water (Water) 1,000 ml STK-MED ONCE .ROUTE 10/15/21 12:41 10/15/21 12:42 DC Morphine Sulfate (Morphine Sulfate) 4 mg STAT STAT IV 10/15/21 09:12 10/15/21 13:04 DC Sodium Chloride 100 ml @ ud STK-MED ONCE IV 10/15/21 13:10 10/15/21 13:10 DC Lidocaine/ Epinephrine (Xylocaine 1%-Epi 1:100,000) 30 ml STK-MED ONCE .ROUTE 10/15/21 13:14 10/15/21 13:15 DC Bupivacaine HCl (Marcaine 0.5%) 1 ml STK-MED ONCE .ROUTE 10/15/21 13:15 10/15/21 13:15 DC Bupivacaine HCl (Marcaine 0.5%) 1 ml STK-MED ONCE .ROUTE 10/15/21 13:16 10/15/21 13:17 DC Acetaminophen 100 ml @ ud STK-MED ONCE IV 10/15/21 13:26 10/15/21 13:26 DC Piperacillin Sod/ Tazobactam Sod 3.375 gm/Sodium Chloride 100 ml @ 200 mls/hr Q6H IV 10/15/21 14:00 10/15/21 15:17 DC 10/15/21 13:15 Promethazine HCl (Phenergan) 12.5 mg Q4HR IV 10/15/21 16:00 11/14/21 15:59 10/15/21 20:35 Pantoprazole Sodium (Protonix Iv) 40 mg DAILY IV 10/16/21 09:00 11/15/21 08:59 10/16/21 09:29 Simethicone (Genasyme) 80 mg Q4 PRN PO GAS/BLOATING 10/15/21 15:00 11/14/21 14:59 Enoxaparin Sodium (Lovenox) 30 mg BID@06,18 SQ 10/15/21 18:00 11/14/21 17:59 10/16/21 05:33 Potassium Chloride/Dextrose/ Sod Cl 1,000 ml @ 140 mls/hr DAILY24 IV 10/15/21 15:00 10/15/21 16:42 DC Piperacillin Sod/ Tazobactam Sod 3.375 gm/Sodium Chloride 100 ml @ 200 mls/hr Q6H IV 10/15/21 19:00 10/25/21 18:59 10/16/21 13:52 Hydromorphone HCl (Dilaudid) 2 mg STK-MED ONCE .ROUTE 10/15/21 15:28 10/15/21 15:28 DC Hydromorphone HCl (Dilaudid) 0.5 mg OT ONCE IV 10/15/21 15:30 10/15/21 20:49 DC 10/15/21 15:32 Hydromorphone HCl (Dilaudid) 0.5 mg OT ONCE IV 10/15/21 15:40 10/15/21 20:49 DC 10/15/21 15:44 Potassium Cl/ Dextrose/Lact Ringer's 1,000 ml @ 130 mls/hr Q7H42M IV 10/15/21 17:00 11/14/21 16:59 10/16/21 01:58 Morphine Sulfate (Morphine Sulfate) 1 mg Q3HR PRN IV PAIN 4 - 6 10/15/21 18:00 11/14/21 17:59 10/16/21 01:57 Morphine Sulfate (Morphine Sulfate) 3 mg Q3HR PRN IV PAIN 7 - 10 10/15/21 18:00 11/14/21 17:59 10/16/21 04:43 Nicotine (Nicotine 21mg Patch) 1 each DAILY TD 10/15/21 21:00 11/14/21 20:59 10/16/21 09:29 Sodium Chloride 25 ml @ ud STK-MED ONCE IV 10/15/21 19:13 10/15/21 19:14 DC Sodium Chloride 100 ml @ ud STK-MED ONCE IV 10/15/21 19:18 10/15/21 19:19 DC Ondansetron HCl (Zofran) 4 mg Q4H PRN IV NAUSEA / VOMITING 10/16/21 01:00 11/15/21 00:59 10/16/21 01:57 Sodium Chloride 100 ml @ ud STK-MED ONCE IV 10/16/21 01:47 10/16/21 01:47 DC Potassium Chloride 200 ml @ 50 mls/hr OT ONCE IV 10/16/21 08:30 10/16/21 12:29 DC 10/16/21 10:15 Sodium Chloride 500 ml @ ud STK-MED ONCE IV 10/16/21 09:57 10/16/21 09:57 DC Sterile Water (Water) 1,000 ml STK-MED ONCE .ROUTE 10/16/21 11:30 10/16/21 11:30 DC Course Sepsis Screening Results: Posi: NEGATIVE Sepsis Qualifier/Stage: SEPSIS RISK Duration or Total Time Spent w: 60 min Vitals & review Data Vital Sign - Last 24 Hours 10/15/21 10/15/21 10/15/21 8/27/22 14:52 14:52 15:02 15:12 Temp 97.1 Pulse 100 100 103 Resp 16 16 16 B/P (MAP) 154/84 (107) 146/100 (115) 153/83 (106) Pulse Ox 100 100 97 O2 Delivery Non-Rebreather Non-Rebreather Non-Rebreather O2 Flow Rate 15.00 15.00 15.00 15.00 10/15/21 10/15/21 10/15/21 10/15/21 15:22 15:32 15:42 15:52 Pulse 103 98 92 Resp 16 16 16 B/P (MAP) 153/83 (106) 158/90 (112) 148/87 (107) Pulse Ox 97 97 97 O2 Delivery Non-Rebreather Nasal Canula Nasal Canula O2 Flow Rate 15.00 3.00 3.00 3.00 10/15/21 10/15/21 10/15/21 10/15/21 15:52 15:59 16:00 16:44 Temp 98.4 97.8 Pulse 81 77 91 Resp 16 21 18 B/P (MAP) 144/83 (103) 144/75 (98) 133/82 (99) Pulse Ox 96 92 96 O2 Delivery Nasal Canula Nasal Cannula* Nasal Cannula* Nasal Cannula O2 Flow Rate 3.00 3 3 3.00 FiO2 32 32 10/15/21 10/15/21 10/15/21 10/15/21 17:00 17:19 17:27 18:00 Pulse 65 62 Resp 20 16 18 B/P (MAP) 122/85 (97) 124/86 (99) Pulse Ox 97 98 97 O2 Delivery Nasal Cannula* Nasal Cannula* Nasal Cannula* O2 Flow Rate 3 2 3 FiO2 32 28 32 10/15/21 10/15/21 10/15/21 10/15/21 18:15 18:30 18:31 18:45 Pulse 62 61 60 61 Resp 20 16 18 22 B/P (MAP) 115/61 (79) Pulse Ox 99 97 99 99 O2 Delivery Nasal Cannula* Nasal Cannula* Nasal Cannula* Nasal Cannula* O2 Flow Rate 3 3 3 3 FiO2 32 32 32 32 10/15/21 10/15/21 10/15/21 10/15/21 19:00 19:02 19:15 19:30 Pulse 63 65 63 64 Resp 20 21 21 12 B/P (MAP) 138/75 (96) Pulse Ox 99 99 100 100 O2 Delivery Nasal Cannula* Nasal Cannula* Nasal Cannula* Nasal Cannula* O2 Flow Rate 3 3 3 3 FiO2 32 32 32 32 10/15/21 10/15/21 10/15/21 10/15/21 19:45 20:00 20:00 20:15 Temp 98.1 Pulse 61 62 63 Resp 17 18 12 B/P (MAP) 134/71 (92) Pulse Ox 98 99 99 O2 Delivery Nasal Cannula* Nasal Cannula Nasal Cannula* Nasal Cannula* O2 Flow Rate 3 2.00 3 3 FiO2 32 32 32 10/15/21 10/15/21 10/15/21 10/15/21 20:30 20:45 21:00 21:15 Pulse 60 61 60 59 Resp 15 16 18 14 B/P (MAP) 130/72 (91) 132/75 (94) Pulse Ox 100 100 100 100 O2 Delivery Nasal Cannula* Nasal Cannula* Nasal Cannula* Nasal Cannula* O2 Flow Rate 3 3 3 3 FiO2 32 32 32 32 10/15/21 10/15/21 10/15/21 10/15/21 21:30 21:31 21:45 22:00 Pulse 62 60 61 62 Resp 20 11 12 12 B/P (MAP) 136/76 (96) 135/68 (90) Pulse Ox 100 100 100 100 O2 Delivery Nasal Cannula* Nasal Cannula* Nasal Cannula* Nasal Cannula* O2 Flow Rate 3 3 3 3 FiO2 32 32 32 32 10/15/21 10/15/21 10/15/21 10/15/21 22:15 22:30 22:45 23:00 Pulse 63 60 62 61 Resp 17 13 16 14 B/P (MAP) 137/63 (87) 138/73 (94) Pulse Ox 100 100 100 100 O2 Delivery Nasal Cannula* Nasal Cannula* Nasal Cannula* Nasal Cannula* O2 Flow Rate 3 3 3 3 FiO2 32 32 32 32 10/15/21 10/15/21 10/15/21 10/15/21 23:15 23:25 23:30 23:31 Pulse 61 62 61 61 Resp 10 18 14 10 B/P (MAP) 144/70 (94) Pulse Ox 100 99 100 100 O2 Delivery Nasal Cannula* Nasal Cannula* Nasal Cannula* Nasal Cannula* O2 Flow Rate 3 2 3 3 FiO2 32 28 32 32 10/15/21 10/16/21 10/16/21 10/16/21 23:45 00:00 00:00 00:15 Temp 98.1 Pulse 61 60 64 Resp 11 13 12 B/P (MAP) 140/68 (92) Pulse Ox 100 100 100 O2 Delivery Nasal Cannula* Nasal Cannula Nasal Cannula* Nasal Cannula* O2 Flow Rate 3 2.00 3 3 FiO2 32 32 32 10/16/21 10/16/21 10/16/21 10/16/21 00:30 00:32 00:45 01:00 Pulse 63 63 65 65 Resp 16 12 12 12 B/P (MAP) 142/67 (92) Pulse Ox 100 99 100 100 O2 Delivery Nasal Cannula* Nasal Cannula* Nasal Cannula* Nasal Cannula* O2 Flow Rate 3 3 3 3 FiO2 32 32 32 32 10/16/21 10/16/21 10/16/21 10/16/21 01:01 01:15 01:30 01:45 Pulse 64 63 67 67 Resp 12 12 16 14 B/P (MAP) 144/68 (93) 140/74 (96) Pulse Ox 100 100 100 100 O2 Delivery Nasal Cannula* Nasal Cannula* Nasal Cannula* Nasal Cannula* O2 Flow Rate 3 3 3 3 FiO2 32 32 32 32 10/16/21 10/16/21 10/16/21 10/16/21 02:00 02:15 02:30 02:45 Pulse 65 67 70 66 Resp 13 14 10 10 B/P (MAP) 147/74 (98) 142/72 (95) Pulse Ox 100 100 100 100 O2 Delivery Nasal Cannula* Nasal Cannula* Nasal Cannula* Nasal Cannula* O2 Flow Rate 3 3 3 3 FiO2 32 32 32 32 10/16/21 10/16/21 10/16/21 10/16/21 03:00 03:15 03:30 03:45 Pulse 68 69 70 71 Resp 11 11 11 22 B/P (MAP) 152/71 (98) 156/71 (99) Pulse Ox 100 100 100 100 O2 Delivery Nasal Cannula* Nasal Cannula* Nasal Cannula* Nasal Cannula* O2 Flow Rate 3 3 2 2 FiO2 32 32 28 28 10/16/21 10/16/21 10/16/21 10/16/21 04:00 04:15 04:30 04:45 Temp 98.2 Pulse 70 67 70 71 Resp 15 11 15 13 B/P (MAP) 152/71 (98) 152/72 (98) Pulse Ox 100 100 100 100 O2 Delivery Nasal Cannula* Nasal Cannula* Nasal Cannula* Nasal Cannula* O2 Flow Rate 2 2 2 2 FiO2 10/16/21 10/16/21 10/16/21 10/16/21 05:00 05:15 05:30 05:32 Pulse 72 67 66 66 Resp 15 12 12 13 B/P (MAP) 150/73 (98) Pulse Ox 100 100 100 100 O2 Delivery Nasal Cannula* Nasal Cannula* Nasal Cannula* Nasal Cannula* O2 Flow Rate 2 2 2 2 FiO2 10/16/21 10/16/21 10/16/21 10/16/21 05:41 05:45 05:48 06:00 Pulse 67 72 70 Resp 14 19 13 B/P (MAP) 142/68 (92) 149/59 (89) Pulse Ox 100 100 100 O2 Delivery Nasal Cannula* Nasal Cannula* Nasal Cannula Nasal Cannula* O2 Flow Rate 2 2 2.00 2 FiO2 10/16/21 10/16/21 10/16/21 10/16/21 06:45 07:00 07:15 07:30 Pulse 66 66 67 66 Resp 13 6 11 13 B/P (MAP) 151/68 (95) 149/64 (92) Pulse Ox 100 100 100 100 O2 Delivery Nasal Cannula* Nasal Cannula* Nasal Cannula* Nasal Cannula* O2 Flow Rate 2 2 2 2 FiO2 10/16/21 10/16/21 10/16/21 10/16/21 07:45 08:00 08:00 08:15 Pulse 65 65 67 Resp 9 17 B/P (MAP) 145/70 (95) Pulse Ox 100 100 100 O2 Delivery Nasal Cannula* Nasal Cannula* Nasal Cannula Nasal Cannula* O2 Flow Rate 2 2 2.00 2 FiO2 10/16/21 10/16/21 10/16/21 10/16/21 08:28 08:31 08:45 09:00 Temp 97.9 Pulse 62 66 65 68 Resp 18 14 16 5 B/P (MAP) 154/73 (100) 164/73 (103) Pulse Ox 98 97 99 98 O2 Delivery Nasal Cannula* Nasal Cannula* Nasal Cannula* Nasal Cannula* O2 Flow Rate 1 2 2 2 FiO2 24 28 28 28 810/16/21 10/16/21 10/16/21 09:15 09:30 09:45 10:00 Pulse 66 65 66 70 Resp 9 13 14 14 B/P (MAP) 161/77 (105) 148/72 (97) Pulse Ox 99 97 99 98 O2 Delivery Nasal Cannula* Nasal Cannula* Nasal Cannula* Nasal Cannula* O2 Flow Rate 2 2 2 2 FiO2 28 28 28 28 10/16/21 10/16/21 10/16/21 10:15 10:31 12:33 Pulse 68 69 Resp 13 20 B/P (MAP) 157/64 (95) Pulse Ox 97 97 O2 Delivery Nasal Cannula* Nasal Cannula* Nasal Cannula O2 Flow Rate 2 2 2.00 FiO2 28 28 Intake and Output 10/16/21 07:00 Intake Total 4200 ml Output Total 2610 ml Balance 1590 ml Laboratory Tests Test 10/15/21 09:01 10/15/21 09:12 10/15/21 09:27 10/15/21 15:50 White Blood Count 8.2 10^3/uL Red Blood Count 4.56 10^6/uL Hemoglobin 15.6 g/dL Hematocrit 46.6 % Mean Corpuscular Volume 102.2 fL Mean Corpuscular Hemoglobin 34.2 pg Mean Corpuscular Hemoglobin Concent 33.5 g/dL Red Cell Distribution Width 12.5 % Platelet Count 200 10^3/uL Mean Platelet Volume 9.6 fL Neutrophils (%) (Auto) 83.2 % Lymphocytes (%) (Auto) 8.0 % Monocytes (%) (Auto) 8.0 % Neutrophils # (Auto) 6.8 10^3/uL Lymphocytes # (Auto) 0.66 10^3/uL1 Monocytes # (Auto) 0.7 10^3/uL Absolute Immature Granulocyte (auto 0.03 10^3 u/L Absolute Eosinophils (auto) 0.0 10^3/uL Immature Granulocytes % 0.40 % Eosinophils % 0.2 % Basophils % 0.2 % Basophils # 0.0 10^3/uL Prothrombin Time 9.1 SEC Prothrombin Time INR (Non-Therap) 0.9 Activated Partial Thromboplast Time 27.1 SEC Sodium Level 134 mmol/L Potassium Level 3.7 mmol/L Chloride Level 93.0 mmol/L Carbon Dioxide Level 28.4 mmol/L Anion Gap 16.3 Blood Urea Nitrogen 14 mg/dL Creatinine 0.85 mg/dL Estimated GFR () 106.9 Est GFR (CKD-EPI)(Non-Afr [place]an) 88.4 BUN/Creatinine Ratio 16.0 Glucose Level 106 mg/dL Calcium Level 10.1 mg/dL Total Bilirubin 1.5 mg/dL Aspartate Amino Transf (AST/SGOT) 28 U/L Alanine Aminotransferase (ALT/SGPT) 27 U/L Alkaline Phosphatase 84 U/L Total Protein 8.1 g/dL Albumin 3.4 g/dL Globulin 4.7 Albumin/Globulin Ratio 0.723 Lipase 24 U/L Urine Collection Type UNKNOWN Urine Color FORD Urine Appearance CLEAR Urine Bilirubin 2+ Urine Ictotest POSITIVE Urine Ketones TRACE Urine Specific [place] 1.010 Urine pH 6.0 Urine Protein 1+ Urine Urobilinogen 4.0 E.U./dL Urine Nitrate POSITIVE Urine Leukocyte Esterase NEGATIVE Urine Glucose (Auto)(UA) NEGATIVE Urine Ketones (Manual) NEGATIVE Urine Blood NEGATIVE Urine RBC 0-2 RBC/HPF Urine WBC 0-2 WBC/HPF Urine Squamous Epithelial Cells FEW Urine Calcium Oxalate Crystals FEW Urine Bacteria FEW Lactic Acid Level 1.4 mmol/L Pro-B-Type Natriuretic Peptide 350 pg/mL Test 10/16/21 04:55 10/16/21 06:08 White Blood Count 6.6 10^3/uL Red Blood Count 4.11 10^6/uL Hemoglobin 13.9 g/dL Hematocrit 42.2 % Mean Corpuscular Volume 102.7 fL Mean Corpuscular Hemoglobin 33.8 pg Mean Corpuscular Hemoglobin Concent 32.9 g/dL Red Cell Distribution Width 12.4 % Platelet Count 186 10^3/uL Mean Platelet Volume 10.1 fL Neutrophils (%) (Auto) 83.9 % Lymphocytes (%) (Auto) 6.2 % Monocytes (%) (Auto) 9.4 % Neutrophils # (Auto) 5.6 10^3/uL Lymphocytes # (Auto) 0.41 10^3/uL1 Monocytes # (Auto) 0.6 10^3/uL Absolute Immature Granulocyte (auto 0.02 10^3 u/L Absolute Eosinophils (auto) 0.0 10^3/uL Immature Granulocytes % 0.30 % Eosinophils % 0.0 % Basophils % 0.2 % Basophils # 0.0 10^3/uL Sodium Level 137 mmol/L Potassium Level 3.3 mmol/L Chloride Level 99.0 mmol/L Carbon Dioxide Level 29.3 mmol/L Anion Gap 12.0 Blood Urea Nitrogen 8 mg/dL Creatinine 0.74 mg/dL Estimated GFR () 125.5 Est GFR (CKD-EPI)(Non-Afr [place]) 103.7 BUN/Creatinine Ratio 10.0 Glucose Level 172 mg/dL Calcium Level 8.5 mg/dL Total Bilirubin 0.9 mg/dL Aspartate Amino Transf (AST/SGOT) 28 U/L Alanine Aminotransferase (ALT/SGPT) 21 U/L Alkaline Phosphatase 50 U/L Total Protein 5.9 g/dL Albumin 2.4 g/dL Globulin 3.5 Albumin/Globulin Ratio 0.685 Segmented Neutrophils 89 % Lymphocytes 5 % Monocytes 6 % Platelet Estimate ADEQUATE Platelet Morphology NORMAL Current Medications Medications (Trade) Dose Ordered Sig/Adali PRN Reason Start Time Stop Time Status Last Admin Enoxaparin Sodium (Lovenox) 30 mg BID@06,18 10/15/21 18:00 11/14/21 17:59 10/16/21 05:33 Morphine Sulfate (Morphine Sulfate) 1 mg Q3HR PRN PAIN 4 - 6 10/15/21 18:00 11/14/21 17:59 10/16/21 01:57 Morphine Sulfate (Morphine Sulfate) 3 mg Q3HR PRN PAIN 7 - 10 10/15/21 18:00 11/14/21 17:59 10/16/21 04:43 Nicotine (Nicotine 21mg Patch) 1 each DAILY 10/15/21 21:00 11/14/21 20:59 10/16/21 09:29 Ondansetron HCl (Zofran) 4 mg Q4H PRN NAUSEA / VOMITING 10/16/21 01:00 11/15/21 00:59 10/16/21 01:57 Pantoprazole Sodium (Protonix Iv) 40 mg DAILY 10/16/21 09:00 11/15/21 08:59 10/16/21 09:29 Piperacillin Sod/ Tazobactam Sod 3.375 gm/Sodium Chloride 100 ml @ 200 mls/hr Q6H 10/15/21 19:00 10/25/21 18:59 10/16/21 13:52 Potassium Cl/ Dextrose/Lact Ringer's 1,000 ml @ 130 mls/hr Q7H42M 10/15/21 17:00 11/14/21 16:59 10/16/21 01:58 Promethazine HCl (Phenergan) 12.5 mg Q4HR 10/15/21 16:00 11/14/21 15:59 10/15/21 20:35 Simethicone (Genasyme) 80 mg Q4 PRN GAS/BLOATING 10/15/21 15:00 11/14/21 14:59 LEVEL 1 SEPSIS INFECTION CRITE: ABX Therapy, Abdominal Pain, Recent Invasive Procedure LEVEL 2-SIRS (LIST ALL THAT AP: None/Not assessed Cardiovascular Evidence: Not Assessed or None Hematologic Evidence: None/Not assessed Hepatic Evidence: None/Not assessed Metabolic Evidence: None/Not assessed Neurological Evidence: None/Not assessed Respiratory Evidence: Need for O2 to keep>90%, O2 SAT<90room air Renal Evidence: None/Not assessed O2 Sat by Pulse Oximetry: 94 Oxygen Flow Rate: 0.00 Assessment/Plan Assessment/Plan Assessment/Plan Problems: (1) Perforated bowel Status: Acute ICD Code: K63.1 - Perforation of intestine (nontraumatic) POD#1 exp lap. Improving. (2) Cigarette smoker Status: Chronic ICD Code: F17.210 - Nicotine dependence, cigarettes, uncomplicated Declines patch. (3) Hypertension Status: Chronic ICD Code: I10 - Essential (primary) hypertension Continue monitoring bp. (4) COPD (chronic obstructive pulmonary disease) Status: Chronic ICD Code: J44.9 - Chronic obstructive pulmonary disease, unspecified Stable, not in exacerbation. #5-Mild hypokalemiapotassium chloride IV N.p.o. IV fluids Zosyn. GI prophylaxis pantoprazole DVT prophylaxis SCDs and lovenox. Expect length of stay more than 1 midnight Case discussed with surgeon Dr. Bustamante again today SHARON WELSH MD Oct 17, 2021 16:33
[2021-10-17 16:39] VITALS: BP 153/87
--- NOTE | 2021-10-17 16:40 | PRM.PN ---
VTE VTE Risk Total Score: 4 VTE Risk Score VTE Risk: Score 0-1 = Low Risk (Aggressive mobilization; early ambulation; no VTE prophylaxis required) Score 2: Moderate Risk (Intermittent/Pneumatic Compression Device OR Lovenox/Heparin/Coumadin) Score 3-4: High Risk (Intermittent/Pneumatic Compression Device AND Lovenox/Heparin/Coumadin) Score > or =5: Highest Risk (Intermittent/Pneumatic Compression Device AND Lovenox/Heparin/Coumadin) Antico:Hep/LMWH/Coum/Xarelto: Yes Mechanical device ordered: Yes Progress Note Post-OP Subjective Date: Oct 17, 2021 Time: 14:00 Pre-Operative DX: perforated viscus/colon s/p colonoscopy, UTI Post-OP DX: perforated necrotic transverse colon near hepatic flexure Physician Notes: Patient feels well. Ambulating better. Passing small amount of flatus and a small BM after Dulcolax suppository. No nausea. Had some vivid "creepy" dreams, we attributed to phenergan, so changed to mostly Zofran. Issue resolved. Doing well on IS. AFVSS JPs still with serous output. LLQ one increasing since ambulating more. CT looks good. Heart is RRR. Lungs are CTA bilaterally. Abd is soft, with good BS. Incision and drain sites are clean, dry, and intact. Good pulses in extremities with good ROM. Laboratory Tests Test 10/15/21 09:01 10/15/21 09:12 10/15/21 09:27 10/15/21 15:50 White Blood Count 8.2 10^3/uL (4.5-11.0) Red Blood Count 4.56 10^6/uL (4.50-5.90) Hemoglobin 15.6 g/dL (13.9-16.3) Hematocrit 46.6 % (37.0-53.0) Mean Corpuscular Volume 102.2 fL (78-100) Mean Corpuscular Hemoglobin 34.2 pg (26-34) Mean Corpuscular Hemoglobin Concent 33.5 g/dL (33-36.5) Red Cell Distribution Width 12.5 % (11.5-14.5) Platelet Count 200 10^3/uL (150-400) Mean Platelet Volume 9.6 fL (7.8-11.0) Neutrophils (%) (Auto) 83.2 % (41.0-85.0) Lymphocytes (%) (Auto) 8.0 % (24.0-44.0) Monocytes (%) (Auto) 8.0 % (5.0-12.0) Neutrophils # (Auto) 6.8 10^3/uL (1.8-7.7) Lymphocytes # (Auto) 0.66 10^3/uL1 (1.0-4.8) Monocytes # (Auto) 0.7 10^3/uL (0.3-0.8) Absolute Immature Granulocyte (auto 0.03 10^3 u/L (0-2) Absolute Eosinophils (auto) 0.0 10^3/uL (0.0-0.2) Immature Granulocytes % 0.40 % (0.00-0.50) Eosinophils % 0.2 % (0.0-5.0) Basophils % 0.2 % (0.0-0.2) Basophils # 0.0 10^3/uL (0.0-0.1) Prothrombin Time 9.1 SEC (9.1-11.5) Prothrombin Time INR (Non-Therap) 0.9 Activated Partial Thromboplast Time 27.1 SEC (22.5-33.1) Sodium Level 134 mmol/L (132-145) Potassium Level 3.7 mmol/L (3.6-5.2) Chloride Level 93.0 mmol/L (96-109) Carbon Dioxide Level 28.4 mmol/L (20.0-32) Anion Gap 16.3 Blood Urea Nitrogen 14 mg/dL (7-18) Creatinine 0.85 mg/dL (0.59-1.40) Estimated GFR () 106.9 (>/=60) Est GFR (CKD-EPI)(Non-Afr [place]) 88.4 (>/=60) BUN/Creatinine Ratio 16.0 Glucose Level 106 mg/dL (70-110) Calcium Level 10.1 mg/dL (8.4-10.5) Total Bilirubin 1.5 mg/dL (0.2-1.0) Aspartate Amino Transf (AST/SGOT) 28 U/L (0-35) Alanine Aminotransferase (ALT/SGPT) 27 U/L (12-78) Alkaline Phosphatase 84 U/L (50-136) Total Protein 8.1 g/dL (6.4-8.2) Albumin 3.4 g/dL (3.4-5.0) Globulin 4.7 Albumin/Globulin Ratio 0.723 Lipase 24 U/L (114-286) Urine Collection Type UNKNOWN Urine Color FORD Urine Appearance CLEAR Urine Bilirubin 2+ (NEGATIVE) Urine Ictotest POSITIVE (NEGATIVE) Urine Ketones TRACE (NEGATIVE) Urine Specific [place] 1.010 (1.005-1.030) Urine pH 6.0 (4.5-8.0) Urine Protein 1+ (NEGATIVE) Urine Urobilinogen 4.0 E.U./dL (0.2) Urine Nitrate POSITIVE (NEGATIVE) Urine Leukocyte Esterase NEGATIVE (NEGATIVE) Urine Glucose (Auto)(UA) NEGATIVE (NEGATIVE) Urine Ketones (Manual) NEGATIVE (NEGATIVE) Urine Blood NEGATIVE (NEGATIVE) Urine RBC 0-2 RBC/HPF (NONE SEEN) Urine WBC 0-2 WBC/HPF (0-2) Urine Squamous Epithelial Cells FEW (<=FEW) Urine Calcium Oxalate Crystals FEW (NONE SEEN) Urine Bacteria FEW (NONE SEEN) Lactic Acid Level 1.4 mmol/L (0.5-1.9) Pro-B-Type Natriuretic Peptide 350 pg/mL (0-125) Test 10/16/21 04:55 10/16/21 06:08 10/17/21 04:58 White Blood Count 6.6 10^3/uL (4.5-11.0) 6.8 10^3/uL (4.5-11.0) Red Blood Count 4.11 10^6/uL (4.50-5.90) 4.13 10^6/uL (4.50-5.90) Hemoglobin 13.9 g/dL (13.9-16.3) 14.0 g/dL (13.9-16.3) Hematocrit 42.2 % (37.0-53.0) 41.6 % (37.0-53.0) Mean Corpuscular Volume 102.7 fL (78-100) 100.7 fL (78-100) Mean Corpuscular Hemoglobin 33.8 pg (26-34) 33.9 pg (26-34) Mean Corpuscular Hemoglobin Concent 32.9 g/dL (33-36.5) 33.7 g/dL (33-36.5) Red Cell Distribution Width 12.4 % (11.5-14.5) 12.1 % (11.5-14.5) Platelet Count 186 10^3/uL (150-400) 212 10^3/uL (150-400) Mean Platelet Volume 10.1 fL (7.8-11.0) 9.3 fL (7.8-11.0) Neutrophils (%) (Auto) 83.9 % (41.0-85.0) Lymphocytes (%) (Auto) 6.2 % (24.0-44.0) Monocytes (%) (Auto) 9.4 % (5.0-12.0) Neutrophils # (Auto) 5.6 10^3/uL (1.8-7.7) Lymphocytes # (Auto) 0.41 10^3/uL1 (1.0-4.8) Monocytes # (Auto) 0.6 10^3/uL (0.3-0.8) Absolute Immature Granulocyte (auto 0.02 10^3 u/L (0-2) Absolute Eosinophils (auto) 0.0 10^3/uL (0.0-0.2) Immature Granulocytes % 0.30 % (0.00-0.50) Eosinophils % 0.0 % (0.0-5.0) Basophils % 0.2 % (0.0-0.2) Basophils # 0.0 10^3/uL (0.0-0.1) Sodium Level 137 mmol/L (132-145) 137 mmol/L (132-145) Potassium Level 3.3 mmol/L (3.6-5.2) 3.2 mmol/L (3.6-5.2) Chloride Level 99.0 mmol/L (96-109) 101.0 mmol/L (96-109) Carbon Dioxide Level 29.3 mmol/L (20.0-32) 27.9 mmol/L (20.0-32) Anion Gap 12.0 11.3 Blood Urea Nitrogen 8 mg/dL (7-18) 4 mg/dL (7-18) Creatinine 0.74 mg/dL (0.59-1.40) 0.67 mg/dL (0.59-1.40) Estimated GFR () 125.5 (>/=60) 140.7 (>/=60) Est GFR (CKD-EPI)(Non-Afr [place]) 103.7 (>/=60) 116.3 (>/=60) BUN/Creatinine Ratio 10.0 5.0 Glucose Level 172 mg/dL (70-110) 99 mg/dL (70-110) Calcium Level 8.5 mg/dL (8.4-10.5) 8.4 mg/dL (8.4-10.5) Total Bilirubin 0.9 mg/dL (0.2-1.0) 1.0 mg/dL (0.2-1.0) Aspartate Amino Transf (AST/SGOT) 28 U/L (0-35) 24 U/L (0-35) Alanine Aminotransferase (ALT/SGPT) 21 U/L (12-78) 21 U/L (12-78) Alkaline Phosphatase 50 U/L (50-136) 53 U/L (50-136) Total Protein 5.9 g/dL (6.4-8.2) 6.1 g/dL (6.4-8.2) Albumin 2.4 g/dL (3.4-5.0) 2.4 g/dL (3.4-5.0) Globulin 3.5 3.7 Albumin/Globulin Ratio 0.685 0.648 Segmented Neutrophils 89 % (31-76) Lymphocytes 5 % (25-36) Monocytes 6 % (3-9) Platelet Estimate ADEQUATE Platelet Morphology NORMAL Microbiology Date/Time Source Procedure Growth Status 10/15/21 13:17 Abd Cavity Gram Stain - Final Complete 10/15/21 13:17 Abd Cavity Wound Culture - Final Complete 10/15/21 00:00 Urine Unknown Urine Culture - Final Complete many WBC but no organisms. A/P: Patient doing well. Still awaiting return of GI function. CT looks good. As soon as GI improves, d/c NGT, then when starts PO and tolerates, consider d/c of drains. Continue Lovenox, antibiotics, and pain meds as needed. Objective Review IO, Exams,& Results Problems Acute/Active Problems: (1) Perforated bowel (2) UTI (urinary tract infection) Vital Signs Date Time Temp Pulse Resp B/P (MAP) Pulse Ox O2 Delivery O2 Flow Rate FiO2 10/17/21 09:19 98.0 63 16 159/85 (109) 94 Room Air* 0 21 Intake and Output 10/17/21 07:00 Intake Total 0 ml Output Total 2900 ml Balance -2900 ml Intake Oral 0 ml Output Urine Total 2900 ml Laboratory Tests Test 10/16/21 04:55 10/16/21 06:08 10/17/21 04:58 White Blood Count 6.6 10^3/uL 6.8 10^3/uL Red Blood Count 4.11 10^6/uL 4.13 10^6/uL Hemoglobin 13.9 g/dL 14.0 g/dL Hematocrit 42.2 % 41.6 % Mean Corpuscular Volume 102.7 fL 100.7 fL Mean Corpuscular Hemoglobin 33.8 pg 33.9 pg Mean Corpuscular Hemoglobin Concent 32.9 g/dL 33.7 g/dL Red Cell Distribution Width 12.4 % 12.1 % Platelet Count 186 10^3/uL 212 10^3/uL Mean Platelet Volume 10.1 fL 9.3 fL Neutrophils (%) (Auto) 83.9 % Lymphocytes (%) (Auto) 6.2 % Monocytes (%) (Auto) 9.4 % Neutrophils # (Auto) 5.6 10^3/uL Lymphocytes # (Auto) 0.41 10^3/uL1 Monocytes # (Auto) 0.6 10^3/uL Absolute Immature Granulocyte (auto 0.02 10^3 u/L Absolute Eosinophils (auto) 0.0 10^3/uL Immature Granulocytes % 0.30 % Eosinophils % 0.0 % Basophils % 0.2 % Basophils # 0.0 10^3/uL Sodium Level 137 mmol/L 137 mmol/L Potassium Level 3.3 mmol/L 3.2 mmol/L Chloride Level 99.0 mmol/L 101.0 mmol/L Carbon Dioxide Level 29.3 mmol/L 27.9 mmol/L Anion Gap 12.0 11.3 Blood Urea Nitrogen 8 mg/dL 4 mg/dL Creatinine 0.74 mg/dL 0.67 mg/dL Estimated GFR () 125.5 140.7 Est GFR (CKD-EPI)(Non-Afr [place]) 103.7 116.3 BUN/Creatinine Ratio 10.0 5.0 Glucose Level 172 mg/dL 99 mg/dL Calcium Level 8.5 mg/dL 8.4 mg/dL Total Bilirubin 0.9 mg/dL 1.0 mg/dL Aspartate Amino Transf (AST/SGOT) 28 U/L 24 U/L Alanine Aminotransferase (ALT/SGPT) 21 U/L 21 U/L Alkaline Phosphatase 50 U/L 53 U/L Total Protein 5.9 g/dL 6.1 g/dL Albumin 2.4 g/dL 2.4 g/dL Globulin 3.5 3.7 Albumin/Globulin Ratio 0.685 0.648 Segmented Neutrophils 89 % Lymphocytes 5 % Monocytes 6 % Platelet Estimate ADEQUATE Platelet Morphology NORMAL Current Medications Medications (Trade) Dose Ordered Sig/Adali PRN Reason Start Time Stop Time Status Last Admin Bisacodyl (Dulcolax) 10 mg DAILY 10/17/21 09:00 11/16/21 08:59 10/17/21 09:33 Enoxaparin Sodium (Lovenox) 30 mg BID@06,18 10/15/21 18:00 11/14/21 17:59 10/17/21 06:00 Morphine Sulfate (Morphine Sulfate) 1 mg Q3HR PRN PAIN 4 - 6 10/15/21 18:00 11/14/21 17:59 10/16/21 01:57 Morphine Sulfate (Morphine Sulfate) 3 mg Q3HR PRN PAIN 7 - 10 10/15/21 18:00 11/14/21 17:59 10/16/21 04:43 Nicotine (Nicotine 21mg Patch) 1 each DAILY 10/15/21 21:00 11/14/21 20:59 10/17/21 08:23 Ondansetron HCl (Zofran) 4 mg Q4H PRN NAUSEA / VOMITING 10/16/21 01:00 11/15/21 00:59 10/16/21 01:57 Pantoprazole Sodium (Protonix Iv) 40 mg DAILY 10/16/21 09:00 11/15/21 08:59 10/17/21 08:23 Piperacillin Sod/ Tazobactam Sod 3.375 gm/Sodium Chloride 100 ml @ 200 mls/hr Q6H 10/17/21 03:00 10/26/21 03:00 10/17/21 14:57 Potassium Cl/ Dextrose/Lact Ringer's 1,000 ml @ 130 mls/hr [id number] 10/15/21 17:00 11/14/21 16:59 10/17/21 14:57 Promethazine HCl (Phenergan) 25 mg Q4 PRN NAUSEA / VOMITING 10/16/21 23:00 11/15/21 22:59 Simethicone (Genasyme) 80 mg Q4 PRN GAS/BLOATING 10/15/21 15:00 11/14/21 14:59 Orders - DONAVAN CAMARA MD Potassium Chloride In Lr-D5 (D5lr 1000ml (10/15/21 17:00) Morphine Sulfate (Morphine Sulfate) (10/15/21 18:00) Morphine Sulfate (Morphine Sulfate) (10/15/21 18:00) Ondansetron Hcl/Pf (Zofran) (10/16/21 01:00) Promethazine Hcl (Phenergan) (10/16/21 23:00) Piperacillin Sodium/Tazobactam (Zosyn 3. (10/17/21 03:00) Bisacodyl (Dulcolax) (10/17/21 09:00) Ct Abd/Pel With Iv Contrast (10/17/21 09:53) Heart: Regular rate, Normal S1, Normal S2 Abdomen: Soft, Other (Distended, tender, bowel sounds hypoactive) Post Operative Incision Status: hypoacttive BS, gen tenderness, Incision and drain sites clean, dry, intact Lungs: Clear to auscultation, Normal air movement Skin: No rashes, No breakdown, No significant lesion DONAVAN CAMARA MD Oct 17, 2021 16:40
[2021-10-17 19:45] VITALS: BP 145/90
[2021-10-18 00:02] VITALS: BP 145/78
[2021-10-18] MEDS: D5LR 1000ML/KCL 20MEQ 1,000 ML IV SCH ×4 (00:47→21:27)
[2021-10-18] MEDS: ZOSYN 3.375 GM 3.375 GM in NS 100ML 100 ML IV SCH ×4 (03:50→21:26)
[2021-10-18] MEDS: MORPHINE SULFATE IV PRN ×2 (03:50→18:32)
[2021-10-18 04:15] VITALS: BP 125/82
[2021-10-18 04:56] LABS: MEAN CORP HGB 34.2 pg (26-34); RED CELL DISTRIBUTION WIDTH 11.9 % (11.5-14.5)
[2021-10-18 05:10] LABS: CARBON DIOXIDE 24.4 mmol/L (20.0-32)
[2021-10-18] MEDS: LOVENOX SQ SCH ×2 (06:37→18:00)
--- NOTE | 2021-10-18 09:06 | NUR ---
PT STATUS THIS NURSE ENTERED PT'S ROOM TO FIX ALARMING IV PUMP. UPON INITIAL VISUAL ASSESSMENT, THIS NURSE NOTES PT HAS PULLED OUT IV. WHEN THIS NURSE QUESTIONED PT TO WHY HE PULLED HIS IV, PT STATES, "WHEN I GET WHERE I'M GOING, I NEED TO MAKE SOME PHONE CALLS." AT THIS TIME PT IS ALERT AND DISORIENTED TO SITUATION AND PLACE. ATTEMPTED REORIENTATION. PT STATES HE WILL UTILIZE HIS CALL LIGHT MOVING FORWARD. DRESSED ARM WITH GAUZE AND COBAN. BED ALARM IS ON. PT IN BED AT LOW-LOCKED POSITION. Addendum: 10/19/21 at 1116 by NEHA MYLES RN, MED/CAMPAIGN MANAGEMENT SENIOR MANAGER ENTERED IN ERROR. INCORRECT PT.
[2021-10-18] MEDS: NICOTINE 21MG PATCH TD SCH (09:18)
[2021-10-18] MEDS: DULCOLAX RC SCH (09:18)
[2021-10-18] MEDS: PROTONIX IV IV SCH (09:18)
[2021-10-18 10:08] VITALS: BP 155/89
--- NOTE | 2021-10-18 14:28 | PRM.PN ---
Subjective Subjective Date: Oct 18, 2021 Time: 12:00 Subjective History of Present Illness Reason for Visit: Abdominal pain History of Present Illness 71-year-old male with history of hypertension, cigarette smoker,? COPD presented emergency room with abdominal pain and distention. Patient had a colonoscopy few days ago at the [facility]. Patient started having abdominal p ain and distention. Denies fever or chills.Work-up in the emergency room including CT abdomen pelvis:1. Free fluid and small amount of free air is noted in the abdomen compatible with bowel perforation. Showed signs of bowel perforation with free fluid and air. Surgeon was consulted. Patient is being taken to the OR. Past Medical History Cardiac: HTN Pulmonary: COPD Past Surgical History: No pertinent hx Past Social History Smoke: 1 pack per day Drugs: None S: Patient is slowly improving.doing better. POD#3 after Exploratory laparotomy, lysis of adhesions, drainage of intra-abdominal fluid collections/abscesses, excision of perforation site with primary closure, appendectomy with inversion of the stump, placement of drains x2 in the right upper quadrant overlying the liver and near the hepatic flexure, and a second drain in the left lower quadrant. Abd pain is improvingAnd is only 2-3 out of 10 on a scale of 1-10. Denies any nausea or vomiting. He is passing some gas/flatus. afebrile and VSS. Potassium is 3.5 Today. WBC is within normal limit. Patient remains on Zosyn. VTE VTE Risk Total Score: 4 VTE Risk Score VTE Risk: Score 0-1 = Low Risk (Aggressive mobilization; early ambulation; no VTE prophylaxis required) Score 2: Moderate Risk (Intermittent/Pneumatic Compression Device OR Lovenox/Heparin/Coumadin) Score 3-4: High Risk (Intermittent/Pneumatic Compression Device AND Lovenox/Heparin/Coumadin) Score > or =5: Highest Risk (Intermittent/Pneumatic Compression Device AND Lovenox/Heparin/Coumadin) Antico:Hep/LMWH/Coum/Xarelto: Yes Mechanical device ordered: Yes Review of Systems Constitutional: No: Fever, Chills Gastrointestinal: Nausea, Abdominal Pain, Other (Distention) Allergies: Coded Allergies: No Known Allergies (Unverified , 10/15/21) Objective Vitals and I/O Vital Sign - Last 24 Hours 10/17/21 10/17/21 10/17/2122 16:39 19:45 20:59 00:02 Temp 98.9 98.3 98.4 Pulse 65 67 65 67 Resp 16 18 16 16 B/P (MAP) 153/87 (109) 145/90 (108) 145/78 (100) Pulse Ox 95 97 95 93 O2 Delivery Room Air* Room Air* Room Air* Room Air* O2 Flow Rate 0 0 0 0 FiO2 21 21 10/18/21 10/18/21 10/18/21 10/18/21 04:15 04:51 09:20 10:08 Temp 98.3 98.6 Pulse 79 48 68 Resp 18 16 20 B/P (MAP) 125/82 (96) 155/89 (111) Pulse Ox 96 94 95 O2 Delivery Room Air* Room Air Room Air* Room Air* O2 Flow Rate 0 0.00 0 0 FiO2 Intake and Output 10/18/21 07:00 Intake Total 0 ml Output Total 1920 ml Balance -1920 ml General: Alert, Oriented X3, Cooperative, No acute distress, mild distress HEENT: Atraumatic, PERRLA, EOMI, Mucous membr. moist/pink Neck: Supple, No JVD Lungs: Clear to auscultation, Normal air movement Heart: Regular rate, Normal S1, Normal S2 Abdomen: Soft, Other (Distended, tender, bowel sounds hypoactive) Extremities: No clubbing, No cyanosis, No edema Skin: No rashes, No breakdown, No significant lesion Neuro: Normal speech, Strength at 5/5 X4 ext, Normal tone, Sensation intact Psych/Mental Status: Mental status NL, Mood NL All Results(Lab/Rad) Laboratory Tests Test 10/15/21 15:50 10/16/21 04:55 10/16/21 06:08 Pro-B-Type Natriuretic Peptide 350 pg/mL White Blood Count 6.6 10^3/uL Red Blood Count 4.11 10^6/uL Hemoglobin 13.9 g/dL Hematocrit 42.2 % Mean Corpuscular Volume 102.7 fL Mean Corpuscular Hemoglobin 33.8 pg Mean Corpuscular Hemoglobin Concent 32.9 g/dL Red Cell Distribution Width 12.4 % Platelet Count 186 10^3/uL Mean Platelet Volume 10.1 fL Neutrophils (%) (Auto) 83.9 % Lymphocytes (%) (Auto) 6.2 % Monocytes (%) (Auto) 9.4 % Neutrophils # (Auto) 5.6 10^3/uL Lymphocytes # (Auto) 0.41 10^3/uL1 Monocytes # (Auto) 0.6 10^3/uL Absolute Immature Granulocyte (auto 0.02 10^3 u/L Absolute Eosinophils (auto) 0.0 10^3/uL Immature Granulocytes % 0.30 % Eosinophils % 0.0 % Basophils % 0.2 % Basophils # 0.0 10^3/uL Sodium Level 137 mmol/L Potassium Level 3.3 mmol/L Chloride Level 99.0 mmol/L Carbon Dioxide Level 29.3 mmol/L Anion Gap 12.0 Blood Urea Nitrogen 8 mg/dL Creatinine 0.74 mg/dL Estimated GFR () 125.5 Est GFR (CKD-EPI)(Non-Afr New Zealander) 103.7 BUN/Creatinine Ratio 10.0 Glucose Level 172 mg/dL Calcium Level 8.5 mg/dL Total Bilirubin 0.9 mg/dL Aspartate Amino Transf (AST/SGOT) 28 U/L Alanine Aminotransferase (ALT/SGPT) 21 U/L Alkaline Phosphatase 50 U/L Total Protein 5.9 g/dL Albumin 2.4 g/dL Globulin 3.5 Albumin/Globulin Ratio 0.685 Segmented Neutrophils 89 % Lymphocytes 5 % Monocytes 6 % Platelet Estimate ADEQUATE Platelet Morphology NORMAL Current Medications Medications (Trade) Dose Ordered Sig/Adali Route PRN Reason Start Time Stop Time Status Last Admin Dose Admin Sodium Chloride 1,000 ml @ 1,200 mls/hr Q50M STAT IV 10/15/21 09:12 10/15/21 13:03 DC 10/15/21 09:24 Ondansetron HCl (Zofran) 4 mg STAT STAT IV 10/15/21 09:12 10/15/21 13:03 DC 10/15/21 09:24 Morphine Sulfate (Morphine Sulfate) 4 mg STAT STAT IV 10/15/21 09:12 10/15/21 13:04 DC 10/15/21 09:24 Potassium Chloride/Sodium Chloride 1,000 ml @ 100 mls/hr Q10H STAT IV 10/15/21 10:32 10/15/21 16:42 DC 10/15/21 10:53 Piperacillin Sod/ Tazobactam Sod 3.375 gm/Sodium Chloride 100 ml @ 200 mls/hr STAT STAT IV 10/15/21 10:32 10/15/21 11:01 DC 10/15/21 10:52 Sodium Chloride 100 ml @ ud STK-MED ONCE IV 10/15/21 10:42 10/15/21 10:42 DC Potassium Chloride/Sodium Chloride 1,000 ml @ ud STK-MED ONCE .ROUTE 10/15/21 10:42 10/15/21 10:42 DC Piperacillin Sod/ Tazobactam Sod 3.375 gm/Sodium Chloride 100 ml @ 200 mls/hr Q6H IV 10/15/21 18:00 10/15/21 20:50 DC Pantoprazole Sodium (Protonix Iv) 40 mg DAILY IV 10/16/21 09:00 10/15/21 20:49 DC Potassium Cl/ Dextrose/Lact Ringer's 1,000 ml @ 100 mls/hr Q10H IV 10/15/21 12:00 10/15/21 20:49 DC Lidocaine HCl (Xylocaine 2% 5ml Vial) 500 mg STK-MED ONCE .ROUTE 10/15/21 12:32 10/15/21 12:33 DC Propofol (Diprivan) 200 mg STK-MED ONCE IV 10/15/21 12:33 10/15/21 12:33 DC Rocuronium Naoma (Zemuron) 100 mg STK-MED ONCE IV 10/15/21 12:33 10/15/21 12:33 DC Hydromorphone HCl (Dilaudid) 2 mg STK-MED ONCE .ROUTE 10/15/21 12:34 10/15/21 12:34 DC Fentanyl Citrate (Sublimaze) 50 mcg STK-MED ONCE .ROUTE 10/15/21 12:34 10/15/21 12:34 DC Bupivacaine HCl (Sensorcaine-Mpf 0.25% Vial) 2.5 mg STK-MED ONCE .ROUTE 10/15/21 12:36 10/15/21 12:37 DC Sodium Chloride (Sodium Chloride Irr Bottle) 1,000 ml STK-MED ONCE IR 10/15/21 12:41 10/15/21 12:42 DC Sterile Water (Water) 1,000 ml STK-MED ONCE .ROUTE 10/15/21 12:41 10/15/21 12:42 DC Morphine Sulfate (Morphine Sulfate) 4 mg STAT STAT IV 10/15/21 09:12 10/15/21 13:04 DC Sodium Chloride 100 ml @ ud STK-MED ONCE IV 10/15/21 13:10 10/15/21 13:10 DC Lidocaine/ Epinephrine (Xylocaine 1%-Epi 1:100,000) 30 ml STK-MED ONCE .ROUTE 10/15/21 13:14 10/15/21 13:15 DC Bupivacaine HCl (Marcaine 0.5%) 1 ml STK-MED ONCE .ROUTE 10/15/21 13:15 10/15/21 13:15 DC Bupivacaine HCl (Marcaine 0.5%) 1 ml STK-MED ONCE .ROUTE 10/15/21 13:16 10/15/21 13:17 DC Acetaminophen 100 ml @ ud STK-MED ONCE IV 10/15/21 13:26 10/15/21 13:26 DC Piperacillin Sod/ Tazobactam Sod 3.375 gm/Sodium Chloride 100 ml @ 200 mls/hr Q6H IV 10/15/21 14:00 10/15/21 15:17 DC 10/15/21 13:15 Promethazine HCl (Phenergan) 12.5 mg Q4HR IV 10/15/21 16:00 11/14/21 15:59 10/15/21 20:35 Pantoprazole Sodium (Protonix Iv) 40 mg DAILY IV 10/16/21 09:00 11/15/21 08:59 10/16/21 09:29 Simethicone (Genasyme) 80 mg Q4 PRN PO GAS/BLOATING 10/15/21 15:00 11/14/21 14:59 Enoxaparin Sodium (Lovenox) 30 mg BID@06,18 SQ 10/15/21 18:00 11/14/21 17:59 10/16/21 05:33 Potassium Chloride/Dextrose/ Sod Cl 1,000 ml @ 140 mls/hr DAILY24 IV 10/15/21 15:00 10/15/21 16:42 DC Piperacillin Sod/ Tazobactam Sod 3.375 gm/Sodium Chloride 100 ml @ 200 mls/hr Q6H IV 10/15/21 19:00 10/25/21 18:59 10/16/21 13:52 Hydromorphone HCl (Dilaudid) 2 mg STK-MED ONCE .ROUTE 10/15/21 15:28 10/15/21 15:28 DC Hydromorphone HCl (Dilaudid) 0.5 mg OT ONCE IV 10/15/21 15:30 10/15/21 20:49 DC 10/15/21 15:32 Hydromorphone HCl (Dilaudid) 0.5 mg OT ONCE IV 10/15/21 15:40 10/15/21 20:49 DC 10/15/21 15:44 Potassium Cl/ Dextrose/Lact Ringer's 1,000 ml @ 130 mls/hr Q7H42M IV 10/15/21 17:00 11/14/21 16:59 10/16/21 01:58 Morphine Sulfate (Morphine Sulfate) 1 mg Q3HR PRN IV PAIN 4 - 6 10/15/21 18:00 11/14/21 17:59 10/16/21 01:57 Morphine Sulfate (Morphine Sulfate) 3 mg Q3HR PRN IV PAIN 7 - 10 10/15/21 18:00 11/14/21 17:59 10/16/21 04:43 Nicotine (Nicotine 21mg Patch) 1 each DAILY TD 10/15/21 21:00 11/14/21 20:59 10/16/21 09:29 Sodium Chloride 25 ml @ ud STK-MED ONCE IV 10/15/21 19:13 10/15/21 19:14 DC Sodium Chloride 100 ml @ ud STK-MED ONCE IV 10/15/21 19:18 10/15/21 19:19 DC Ondansetron HCl (Zofran) 4 mg Q4H PRN IV NAUSEA / VOMITING 10/16/21 01:00 11/15/21 00:59 10/16/21 01:57 Sodium Chloride 100 ml @ ud STK-MED ONCE IV 10/16/21 01:47 10/16/21 01:47 DC Potassium Chloride 200 ml @ 50 mls/hr OT ONCE IV 10/16/21 08:30 10/16/21 12:29 DC 10/16/21 10:15 Sodium Chloride 500 ml @ ud STK-MED ONCE IV 10/16/21 09:57 10/16/21 09:57 DC Sterile Water (Water) 1,000 ml STK-MED ONCE .ROUTE 10/16/21 11:30 10/16/21 11:30 DC Course Sepsis Screening Results: Posi: NEGATIVE Sepsis Qualifier/Stage: SEPSIS RISK Duration or Total Time Spent w: 60 min Vitals & review Data Vital Sign - Last 24 Hours 10/15/21 10/15/21 10/15/21 10/15/21 14:52 14:52 15:02 15:12 Temp 97.1 Pulse 100 100 103 Resp 16 16 16 B/P (MAP) 154/84 (107) 146/100 (115) 153/83 (106) Pulse Ox 100 100 97 O2 Delivery Non-Rebreather Non-Rebreather Non-Rebreather O2 Flow Rate 15.00 15.00 15.00 15.00 10/15/21 10/15/21 10/15/21 10/15/21 15:22 15:32 15:42 15:52 Pulse 103 98 92 Resp 16 16 16 B/P (MAP) 153/83 (106) 158/90 (112) 148/87 (107) Pulse Ox 97 97 97 O2 Delivery Non-Rebreather Nasal Canula Nasal Canula O2 Flow Rate 15.00 3.00 3.00 3.00 10/15/21 10/15/21 10/15/21 10/15/21 15:52 15:59 16:00 16:44 Temp 98.4 97.8 Pulse 81 77 91 Resp 16 21 18 B/P (MAP) 144/83 (103) 144/75 (98) 133/82 (99) Pulse Ox 96 92 96 O2 Delivery Nasal Canula Nasal Cannula* Nasal Cannula* Nasal Cannula O2 Flow Rate 3.00 3 3 3.00 FiO2 32 32 10/15/21 10/15/21 10/15/21 10/15/21 17:00 17:19 17:27 18:00 Pulse 65 62 Resp 20 16 18 B/P (MAP) 122/85 (97) 124/86 (99) Pulse Ox 97 98 97 O2 Delivery Nasal Cannula* Nasal Cannula* Nasal Cannula* O2 Flow Rate 3 2 3 FiO2 32 28 32 10/15/21 10/15/21 10/15/21 10/15/21 18:15 18:30 18:31 18:45 Pulse 62 61 60 61 Resp 20 16 18 22 B/P (MAP) 115/61 (79) Pulse Ox 99 97 99 99 O2 Delivery Nasal Cannula* Nasal Cannula* Nasal Cannula* Nasal Cannula* O2 Flow Rate 3 3 3 3 FiO2 32 32 32 32 10/15/21 10/15/21 10/15/21 10/15/21 19:00 19:02 19:15 19:30 Pulse 63 65 63 64 Resp 20 21 21 12 B/P (MAP) 138/75 (96) Pulse Ox 99 99 100 100 O2 Delivery Nasal Cannula* Nasal Cannula* Nasal Cannula* Nasal Cannula* O2 Flow Rate 3 3 3 3 FiO2 32 32 32 32 10/15/21 10/15/21 10/15/21 10/15/21 19:45 20:00 20:00 20:15 Temp 98.1 Pulse 61 62 63 Resp 17 18 12 B/P (MAP) 134/71 (92) Pulse Ox 98 99 99 O2 Delivery Nasal Cannula* Nasal Cannula Nasal Cannula* Nasal Cannula* O2 Flow Rate 3 2.00 3 3 FiO2 32 32 32 10/15/21 10/15/21 10/15/21 10/15/21 20:30 20:45 21:00 21:15 Pulse 60 61 60 59 Resp 15 16 18 14 B/P (MAP) 130/72 (91) 132/75 (94) Pulse Ox 100 100 100 100 O2 Delivery Nasal Cannula* Nasal Cannula* Nasal Cannula* Nasal Cannula* O2 Flow Rate 3 3 3 3 FiO2 32 32 32 32 10/15/21 10/15/21 10/15/21 10/15/21 21:30 21:31 21:45 22:00 Pulse 62 60 61 62 Resp 20 11 12 12 B/P (MAP) 136/76 (96) 135/68 (90) Pulse Ox 100 100 100 100 O2 Delivery Nasal Cannula* Nasal Cannula* Nasal Cannula* Nasal Cannula* O2 Flow Rate 3 3 3 3 FiO2 32 32 32 32 10/15/21 10/15/21 10/15/21 10/15/21 22:15 22:30 22:45 23:00 Pulse 63 60 62 61 Resp 17 13 16 14 B/P (MAP) 137/63 (87) 138/73 (94) Pulse Ox 100 100 100 100 O2 Delivery Nasal Cannula* Nasal Cannula* Nasal Cannula* Nasal Cannula* O2 Flow Rate 3 3 3 3 FiO2 32 32 32 32 10/15/21 10/15/21 10/15/21 10/15/21 23:15 23:25 23:30 23:31 Pulse 61 62 61 61 Resp 10 18 14 10 B/P (MAP) 144/70 (94) Pulse Ox 100 99 100 100 O2 Delivery Nasal Cannula* Nasal Cannula* Nasal Cannula* Nasal Cannula* O2 Flow Rate 3 2 3 3 FiO2 32 28 32 32 10/15/21 10/16/21 10/16/21 10/16/21 23:45 00:00 00:00 00:15 Temp 98.1 Pulse 61 60 64 Resp 11 13 12 B/P (MAP) 140/68 (92) Pulse Ox 100 100 100 O2 Delivery Nasal Cannula* Nasal Cannula Nasal Cannula* Nasal Cannula* O2 Flow Rate 3 2.00 3 3 FiO2 32 32 32 10/16/21 10/16/21 10/16/21 10/16/21 00:30 00:32 00:45 01:00 Pulse 63 63 65 65 Resp 16 12 12 12 B/P (MAP) 142/67 (92) Pulse Ox 100 99 100 100 O2 Delivery Nasal Cannula* Nasal Cannula* Nasal Cannula* Nasal Cannula* O2 Flow Rate 3 3 3 3 FiO2 32 32 32 32 10/16/21 10/16/21 10/16/21 10/16/21 01:01 01:15 01:30 01:45 Pulse 64 63 67 67 Resp 12 12 16 14 B/P (MAP) 144/68 (93) 140/74 (96) Pulse Ox 100 100 100 100 O2 Delivery Nasal Cannula* Nasal Cannula* Nasal Cannula* Nasal Cannula* O2 Flow Rate 3 3 3 3 FiO2 32 32 32 32 10/16/21 10/16/21 10/16/21 10/16/21 02:00 02:15 02:30 02:45 Pulse 65 67 70 66 Resp 13 14 10 10 B/P (MAP) 147/74 (98) 142/72 (95) Pulse Ox 100 100 100 100 O2 Delivery Nasal Cannula* Nasal Cannula* Nasal Cannula* Nasal Cannula* O2 Flow Rate 3 3 3 3 FiO2 32 32 32 32 10/16/21 10/16/21 10/16/21 10/16/21 03:00 03:15 03:30 03:45 Pulse 68 69 70 71 Resp 11 11 11 22 B/P (MAP) 152/71 (98) 156/71 (99) Pulse Ox 100 100 100 100 O2 Delivery Nasal Cannula* Nasal Cannula* Nasal Cannula* Nasal Cannula* O2 Flow Rate 3 3 2 2 FiO2 32 32 28 28 10/16/21 10/16/21 10/16/21 10/16/21 04:00 04:15 04:30 04:45 Temp 98.2 Pulse 70 67 70 71 Resp 15 11 15 13 B/P (MAP) 152/71 (98) 152/72 (98) Pulse Ox 100 100 100 100 O2 Delivery Nasal Cannula* Nasal Cannula* Nasal Cannula* Nasal Cannula* O2 Flow Rate 2 2 2 2 FiO2 28 10/16/21 10/16/21 10/16/21 10/16/21 05:00 05:15 05:30 05:32 Pulse 72 67 66 66 Resp 15 12 12 13 B/P (MAP) 150/73 (98) Pulse Ox 100 100 100 100 O2 Delivery Nasal Cannula* Nasal Cannula* Nasal Cannula* Nasal Cannula* O2 Flow Rate 2 2 2 2 FiO2 28 10/16/21 10/16/21 10/16/21 10/16/21 05:41 05:45 05:48 06:00 Pulse 67 72 70 Resp 14 19 13 B/P (MAP) 142/68 (92) 149/59 (89) Pulse Ox 100 100 100 O2 Delivery Nasal Cannula* Nasal Cannula* Nasal Cannula Nasal Cannula* O2 Flow Rate 2 2 2.00 2 FiO2 10/16/21 10/16/21 10/16/21 10/16/21 06:45 07:00 07:15 07:30 Pulse 66 66 67 66 Resp 13 6 11 13 B/P (MAP) 151/68 (95) 149/64 (92) Pulse Ox 100 100 100 100 O2 Delivery Nasal Cannula* Nasal Cannula* Nasal Cannula* Nasal Cannula* O2 Flow Rate 2 2 2 2 FiO2 10/16/21 10/16/21 10/16/21 10/16/21 07:45 08:00 08:00 08:15 Pulse 65 65 67 Resp 9 17 B/P (MAP) 145/70 (95) Pulse Ox 100 100 100 O2 Delivery Nasal Cannula* Nasal Cannula* Nasal Cannula Nasal Cannula* O2 Flow Rate 2 2 2.00 2 FiO2 28 10/16/21 10/16/21 10/16/21 10/16/21 08:28 08:31 08:45 09:00 Temp 97.9 Pulse 62 66 65 68 Resp 18 14 16 5 B/P (MAP) 154/73 (100) 164/73 (103) Pulse Ox 98 97 99 98 O2 Delivery Nasal Cannula* Nasal Cannula* Nasal Cannula* Nasal Cannula* O2 Flow Rate 1 2 2 2 FiO2 24 28 28 28 10/16/21 10/16/21 10/16/21 10/16/21 09:15 09:30 09:45 10:00 Pulse 66 65 66 70 Resp 9 13 14 14 B/P (MAP) 161/77 (105) 148/72 (97) Pulse Ox 99 97 99 98 O2 Delivery Nasal Cannula* Nasal Cannula* Nasal Cannula* Nasal Cannula* O2 Flow Rate 2 2 2 2 FiO2 28 28 10/16/21 10/16/21 10/16/21 10:15 10:31 12:33 Pulse 68 69 Resp 13 20 B/P (MAP) 157/64 (95) Pulse Ox 97 97 O2 Delivery Nasal Cannula* Nasal Cannula* Nasal Cannula O2 Flow Rate 2 2 2.00 FiO2 28 Intake and Output 10/16/21 07:00 Intake Total 4200 ml Output Total 2610 ml Balance 1590 ml Laboratory Tests Test 10/15/21 09:01 10/15/21 09:12 10/15/21 09:27 10/15/21 15:50 White Blood Count 8.2 10^3/uL Red Blood Count 4.56 10^6/uL Hemoglobin 15.6 g/dL Hematocrit 46.6 % Mean Corpuscular Volume 102.2 fL Mean Corpuscular Hemoglobin 34.2 pg Mean Corpuscular Hemoglobin Concent 33.5 g/dL Red Cell Distribution Width 12.5 % Platelet Count 200 10^3/uL Mean Platelet Volume 9.6 fL Neutrophils (%) (Auto) 83.2 % Lymphocytes (%) (Auto) 8.0 % Monocytes (%) (Auto) 8.0 % Neutrophils # (Auto) 6.8 10^3/uL Lymphocytes # (Auto) 0.66 10^3/uL1 Monocytes # (Auto) 0.7 10^3/uL Absolute Immature Granulocyte (auto 0.03 10^3 u/L Absolute Eosinophils (auto) 0.0 10^3/uL Immature Granulocytes % 0.40 % Eosinophils % 0.2 % Basophils % 0.2 % Basophils # 0.0 10^3/uL Prothrombin Time 9.1 SEC Prothrombin Time INR (Non-Therap) 0.9 Activated Partial Thromboplast Time 27.1 SEC Sodium Level 134 mmol/L Potassium Level 3.7 mmol/L Chloride Level 93.0 mmol/L Carbon Dioxide Level 28.4 mmol/L Anion Gap 16.3 Blood Urea Nitrogen 14 mg/dL Creatinine 0.85 mg/dL Estimated GFR () 106.9 Est GFR (CKD-EPI)(Non-Afr [place]alander) 88.4 BUN/Creatinine Ratio 16.0 Glucose Level 106 mg/dL Calcium Level 10.1 mg/dL Total Bilirubin 1.5 mg/dL Aspartate Amino Transf (AST/SGOT) 28 U/L Alanine Aminotransferase (ALT/SGPT) 27 U/L Alkaline Phosphatase 84 U/L Total Protein 8.1 g/dL Albumin 3.4 g/dL Globulin 4.7 Albumin/Globulin Ratio 0.723 Lipase 24 U/L Urine Collection Type UNKNOWN Urine Color FORD Urine Appearance CLEAR Urine Bilirubin 2+ Urine Ictotest POSITIVE Urine Ketones TRACE Urine Specific Carney 1.010 Urine pH 6.0 Urine Protein 1+ Urine Urobilinogen 4.0 E.U./dL Urine Nitrate POSITIVE Urine Leukocyte Esterase NEGATIVE Urine Glucose (Auto)(UA) NEGATIVE Urine Ketones (Manual) NEGATIVE Urine Blood NEGATIVE Urine RBC 0-2 RBC/HPF Urine WBC 0-2 WBC/HPF Urine Squamous Epithelial Cells FEW Urine Calcium Oxalate Crystals FEW Urine Bacteria FEW Lactic Acid Level 1.4 mmol/L Pro-B-Type Natriuretic Peptide 350 pg/mL Test 10/16/21 04:55 10/16/21 06:08 White Blood Count 6.6 10^3/uL Red Blood Count 4.11 10^6/uL Hemoglobin 13.9 g/dL Hematocrit 42.2 % Mean Corpuscular Volume 102.7 fL Mean Corpuscular Hemoglobin 33.8 pg Mean Corpuscular Hemoglobin Concent 32.9 g/dL Red Cell Distribution Width 12.4 % Platelet Count 186 10^3/uL Mean Platelet Volume 10.1 fL Neutrophils (%) (Auto) 83.9 % Lymphocytes (%) (Auto) 6.2 % Monocytes (%) (Auto) 9.4 % Neutrophils # (Auto) 5.6 10^3/uL Lymphocytes # (Auto) 0.41 10^3/uL1 Monocytes # (Auto) 0.6 10^3/uL Absolute Immature Granulocyte (auto 0.02 10^3 u/L Absolute Eosinophils (auto) 0.0 10^3/uL Immature Granulocytes % 0.30 % Eosinophils % 0.0 % Basophils % 0.2 % Basophils # 0.0 10^3/uL Sodium Level 137 mmol/L Potassium Level 3.3 mmol/L Chloride Level 99.0 mmol/L Carbon Dioxide Level 29.3 mmol/L Anion Gap 12.0 Blood Urea Nitrogen 8 mg/dL Creatinine 0.74 mg/dL Estimated GFR () 125.5 Est GFR (CKD-EPI)(Non-Afr [place]) 103.7 BUN/Creatinine Ratio 10.0 Glucose Level 172 mg/dL Calcium Level 8.5 mg/dL Total Bilirubin 0.9 mg/dL Aspartate Amino Transf (AST/SGOT) 28 U/L Alanine Aminotransferase (ALT/SGPT) 21 U/L Alkaline Phosphatase 50 U/L Total Protein 5.9 g/dL Albumin 2.4 g/dL Globulin 3.5 Albumin/Globulin Ratio 0.685 Segmented Neutrophils 89 % Lymphocytes 5 % Monocytes 6 % Platelet Estimate ADEQUATE Platelet Morphology NORMAL Current Medications Medications (Trade) Dose Ordered Sig/Adali PRN Reason Start Time Stop Time Status Last Admin Enoxaparin Sodium (Lovenox) 30 mg BID@06,18 10/15/21 18:00 11/14/21 17:59 10/16/21 05:33 Morphine Sulfate (Morphine Sulfate) 1 mg Q3HR PRN PAIN 4 - 6 10/15/21 18:00 11/14/21 17:59 10/16/21 01:57 Morphine Sulfate (Morphine Sulfate) 3 mg Q3HR PRN PAIN 7 - 10 10/15/21 18:00 11/14/21 17:59 10/16/21 04:43 Nicotine (Nicotine 21mg Patch) 1 each DAILY 10/15/21 21:00 11/14/21 20:59 10/16/21 09:29 Ondansetron HCl (Zofran) 4 mg Q4H PRN NAUSEA / VOMITING 10/16/21 01:00 11/15/21 00:59 10/16/21 01:57 Pantoprazole Sodium (Protonix Iv) 40 mg DAILY 10/16/21 09:00 11/15/21 08:59 10/16/21 09:29 Piperacillin Sod/ Tazobactam Sod 3.375 gm/Sodium Chloride 100 ml @ 200 mls/hr Q6H 10/15/21 19:00 10/25/21 18:59 10/16/21 13:52 Potassium Cl/ Dextrose/Lact Ringer's 1,000 ml @ 130 mls/hr Q7H42M 10/15/21 17:00 11/14/21 16:59 10/16/21 01:58 Promethazine HCl (Phenergan) 12.5 mg Q4HR 10/15/21 16:00 11/14/21 15:59 10/15/21 20:35 Simethicone (Genasyme) 80 mg Q4 PRN GAS/BLOATING 10/15/21 15:00 11/14/21 14:59 LEVEL 1 SEPSIS INFECTION CRITE: ABX Therapy, Abdominal Pain, Recent Invasive Procedure LEVEL 2-SIRS (LIST ALL THAT AP: None/Not assessed Cardiovascular Evidence: Not Assessed or None Hematologic Evidence: None/Not assessed Hepatic Evidence: None/Not assessed Metabolic Evidence: None/Not assessed Neurological Evidence: None/Not assessed Respiratory Evidence: Need for O2 to keep>90%, O2 SAT<90room air Renal Evidence: None/Not assessed O2 Sat by Pulse Oximetry: 95 Oxygen Flow Rate: 0.00 Assessment/Plan Assessment/Plan Assessment/Plan Problems: (1) Perforated bowel Status: Acute ICD Code: K63.1 - Perforation of intestine (nontraumatic) POD#3 exp lap. Improving. Continue Zosyn. diet ordered. Diet ordered per General surgery. He is n.p.o. at present. continue IV fluid. (2) Cigarette smoker Status: Chronic ICD Code: F17.210 - Nicotine dependence, cigarettes, uncomplicated Declines patch. (3) Hypertension Status: Chronic ICD Code: I10 - Essential (primary) hypertension Continue monitoring bp. No med. (4) COPD (chronic obstructive pulmonary disease) Status: Chronic ICD Code: J44.9 - Chronic obstructive pulmonary disease, unspecified Stable, not in exacerbation. #5-Mild hypokalemiapotassium chloride IV 20 M EQ one-time today. We will repeat CMP in the morning. We will keep potassium more than 4. GI prophylaxis pantoprazole DVT prophylaxis SCDs and lovenox. Expect length of stay more than 1 midnight SHARON WELSH MD Oct 18, 2021 14:28
[2021-10-18] MEDS ORDERED: KCL 20MEQ/100ML 100 ML IV ONE (14:30)
[2021-10-18 14:45] VITALS: BP 153/84
--- NOTE | 2021-10-18 16:25 | NUR ---
DISCHARGE PLAN - HOME HEALTH AND WALKER VIA [facility] & [facility] ATTEMPTED TO SEE PATIENT@BEDSIDE YESTERDAY AND PATIENT WAS IN SURGERY. CM ATTEMPTED X2 TODAY AND PATIENT SLEEPING. CM CONTACTED PATIENT'S - PINO AND DISCUSSED DISCHARGE PLANS, NEEDS AND GOALS. PATIENT CURRENTLY LIVES@HOME WITH SPOUSE IN [facility]. PATIENT IND PRIOR TO SURGERY. SPOUSE REPORTS THAT PATIENT DOES HAVE A CANE@HOME, BUT DENIES HAVING ANY OTHER MEDICAL EQUIPMENT. SPOUSE EDUCATED ON RESOURCES AVAILABLE AND DUE TO PATIENT'S INSURANCE - [facility] WOULD SET PATIENT UP WITH SERVICES AND DME IF NEEDED. SPOUSE AGREES THAT IT WOULD BENEFIT PATIENT TO HAVE A WALKER AND WOULD ALSO BENEFIT FROM PATIENT HAVING HOME HEALTH AFTER DISCHARGE. DENIES NEED FOR ANY IP REHAB AFTER DISCHARGE. CM CONTACTED [facility]@[phone] EXT [phone] AND INFORMED@THAT TIME TO FAX [phone]. CM FAXED ORDER TO [phone] & [phone] - [facility]ULAR [facility] NUMBER WITH REQUEST FOR [facility]ALTH@DISCHARGE, F/U APPT WITH RAUL PRECIADO@[facility] AND WALKER. FAX CONFIRMATION CONFIRMED COMPLETE ON BOTH#'S. CM WILL CONTINUE TO FOLLOW. Addendum: 10/19/21 at 1226 by Ines Quan RN,Case Managemen RN CM RECEIVED PHONE CALL FROM [facility] AND INFORMED THAT HOME HEALTH ORDER HAD TO SAY WHAT PATIENT WAS NEEDING AND THEY ALSO NEEDED PROGRESS NOTES. INFORMED PER BANDAR THAT RAUL PRECIADO NP - PATIENT'S PCP WAS NO LONGER THERE AND PATIENT SEE'S TAISHA HARDEN NP@[place]. CM WILL NOTIFY WHEN PATIENT DISCHARGED. CM FAXED HOME HEALTH ORDER AND CLINICALS TO [facility]@[phone]. FAX CONFIRMATOIN CONFIRMED COMPLETE. Addendum: 10/20/21 at 1624 by Ines Quan RN,Case Managemen RN CM SPOKE WITH BANDAR@[facility] AND [facility] IS WORKING ON GETTING PATIENT SET UP WITH WALKER AND HOME HEALTH PROVIDED VIA [facility]. BANDAR FROM [facility] WILL LET KNOW WHEN PATIENT SET UP. Addendum: 10/21/21 at 1130 by Ines Quan RN,Case Managemen RN CM@[email or web address] THIS AM AND INFORMED PATIENT AND DAUGHTER - CONNOR - THAT [facility] IS SENDING WALKER AND SETTING PATIENT UP WITH HOME HEALTH. INFORMED THAT PER [facility] - PATIENT'S PCP TAISHA HARDEN NOW AND THAT RAUL PRECIADO IS NO LONGER@[facility]. CM INFORMED IF CM FOUND OUT PRIOR TO DISCHARGE THAT IT WOULD BE IN PATIENT'S VISIT REPORT@DISCHARGE. CM RECEIVED CALL FROM BANDAR@[facility] AND CM INFORMED BANDAR THAT PATIENT WAS BEING DISCHARGED HOME TODAY. INFORMED@THAT TIME THAT PATIENT IS SET UP WITH [facility]. CM ENTERED INFO IN PATIENT'S VISIT REPORT FOR REMINDER@DISCHARGE. Addendum: 10/21/21 at 1149 by Ines Quan RN,Case Managemen RN CM FAXED DISCHARGE CLINICALS,. DC SUMMARY AND PATIENT VISIT REPORT, AND CM NOTE TO [facility] REFERRAL#[phone]. FAX CONFIRMATION CONFIRMED COMPLETE.
--- NOTE | 2021-10-18 17:34 | PRM.PN ---
VTE VTE Risk Total Score: 4 VTE Risk Score VTE Risk: Score 0-1 = Low Risk (Aggressive mobilization; early ambulation; no VTE prophylaxis required) Score 2: Moderate Risk (Intermittent/Pneumatic Compression Device OR Lovenox/Heparin/Coumadin) Score 3-4: High Risk (Intermittent/Pneumatic Compression Device AND Lovenox/Heparin/Coumadin) Score > or =5: Highest Risk (Intermittent/Pneumatic Compression Device AND Lovenox/Heparin/Coumadin) Antico:Hep/LMWH/Coum/Xarelto: Yes Mechanical device ordered: Yes Progress Note Post-OP Subjective Date: Oct 18, 2021 Time: 14:45 Pre-Operative DX: perforated viscus/colon s/p colonoscopy, UTI Post-OP DX: perforated necrotic transverse colon near hepatic flexure Physician Notes: Patient improving. Small amount of stool, and increasing flatus. no signi ficant pain. No nausea. Someone brought him water today, and he has been drinking all day. Nurse was unaware, thinking it was for his . Nursing to look into that information, and larger NPO sign hung on door. Patient has been avoiding walking. they are getting ready to help him shower, and I encouraged him to walk after that. He agreed. SCDs in place. using IS. AFVSS labs good for the most part, IM replaced K. Loss likely from NGT. NGT and drain output decreasing nicely. Still serous, .for the most part, on the JPs. Heart is RRR. Lungs are CTA bilaterally. Incision and drains are CDI. No signs of infection. Good pulses and ROM in all extremities. Neuro intact. Laboratory Tests Test 10/16/21 04:55 10/16/21 06:08 10/17/21 04:58 10/18/21 04:29 White Blood Count 6.6 10^3/uL (4.5-11.0) 6.8 10^3/uL (4.5-11.0) 5.0 10^3/uL (4.5-11.0) Red Blood Count 4.11 10^6/uL (4.50-5.90) 4.13 10^6/uL (4.50-5.90) 4.12 10^6/uL (4.50-5.90) Hemoglobin 13.9 g/dL (13.9-16.3) 14.0 g/dL (13.9-16.3) 14.1 g/dL (13.9-16.3) Hematocrit 42.2 % (37.0-53.0) 41.6 % (37.0-53.0) 41.5 % (37.0-53.0) Mean Corpuscular Volume 102.7 fL (78-100) 100.7 fL (78-100) 100.7 fL (78-100) Mean Corpuscular Hemoglobin 33.8 pg (26-34) 33.9 pg (26-34) 34.2 pg (26-34) Mean Corpuscular Hemoglobin Concent 32.9 g/dL (33-36.5) 33.7 g/dL (33-36.5) 34.0 g/dL (33-36.5) Red Cell Distribution Width 12.4 % (11.5-14.5) 12.1 % (11.5-14.5) 11.9 % (11.5-14.5) Platelet Count 186 10^3/uL (150-400) 212 10^3/uL (150-400) 239 10^3/uL (150-400) Mean Platelet Volume 10.1 fL (7.8-11.0) 9.3 fL (7.8-11.0) 9.4 fL (7.8-11.0) Neutrophils (%) (Auto) 83.9 % (41.0-85.0) Lymphocytes (%) (Auto) 6.2 % (24.0-44.0) Monocytes (%) (Auto) 9.4 % (5.0-12.0) Neutrophils # (Auto) 5.6 10^3/uL (1.8-7.7) Lymphocytes # (Auto) 0.41 10^3/uL1 (1.0-4.8) Monocytes # (Auto) 0.6 10^3/uL (0.3-0.8) Absolute Immature Granulocyte (auto 0.02 10^3 u/L (0-2) Absolute Eosinophils (auto) 0.0 10^3/uL (0.0-0.2) Immature Granulocytes % 0.30 % (0.00-0.50) Eosinophils % 0.0 % (0.0-5.0) Basophils % 0.2 % (0.0-0.2) Basophils # 0.0 10^3/uL (0.0-0.1) Sodium Level 137 mmol/L (132-145) 137 mmol/L (132-145) 139 mmol/L (132-145) Potassium Level 3.3 mmol/L (3.6-5.2) 3.2 mmol/L (3.6-5.2) 3.5 mmol/L (3.6-5.2) Chloride Level 99.0 mmol/L (96-109) 101.0 mmol/L (96-109) 104.0 mmol/L (96-109) Carbon Dioxide Level 29.3 mmol/L (20.0-32) 27.9 mmol/L (20.0-32) 24.4 mmol/L (20.0-32) Anion Gap 12.0 11.3 14.1 Blood Urea Nitrogen 8 mg/dL (7-18) 4 mg/dL (7-18) 6 mg/dL (7-18) Creatinine 0.74 mg/dL (0.59-1.40) 0.67 mg/dL (0.59-1.40) 0.69 mg/dL (0.59-1.40) Estimated GFR () 125.5 (>/=60) 140.7 (>/=60) 136.0 (>/=60) Est GFR (CKD-EPI)(Non-Afr [place]ian) 103.7 (>/=60) 116.3 (>/=60) 112.4 (>/=60) BUN/Creatinine Ratio 10.0 5.0 8.0 Glucose Level 172 mg/dL (70-110) 99 mg/dL (70-110) 114 mg/dL (70-110) Calcium Level 8.5 mg/dL (8.4-10.5) 8.4 mg/dL (8.4-10.5) 8.6 mg/dL (8.4-10.5) Total Bilirubin 0.9 mg/dL (0.2-1.0) 1.0 mg/dL (0.2-1.0) 0.9 mg/dL (0.2-1.0) Aspartate Amino Transf (AST/SGOT) 28 U/L (0-35) 24 U/L (0-35) 21 U/L (0-35) Alanine Aminotransferase (ALT/SGPT) 21 U/L (12-78) 21 U/L (12-78) 13 U/L (12-78) Alkaline Phosphatase 50 U/L (50-136) 53 U/L (50-136) 57 U/L (50-136) Total Protein 5.9 g/dL (6.4-8.2) 6.1 g/dL (6.4-8.2) 6.4 g/dL (6.4-8.2) Albumin 2.4 g/dL (3.4-5.0) 2.4 g/dL (3.4-5.0) 2.5 g/dL (3.4-5.0) Globulin 3.5 3.7 3.9 Albumin/Globulin Ratio 0.685 0.648 0.641 Segmented Neutrophils 89 % (31-76) Lymphocytes 5 % (25-36) Monocytes 6 % (3-9) Platelet Estimate ADEQUATE Platelet Morphology NORMAL A/P; Await return of GI function. IS and ambulating. Shower. When better GI, d/c NGT. Continue antibiotics. Appreciate medicine. Objective Review IO, Exams,& Results Problems Acute/Active Problems: (1) Perforated bowel (2) UTI (urinary tract infection) Vital Signs Date Time Temp Pulse Resp B/P (MAP) Pulse Ox O2 Delivery O2 Flow Rate FiO2 10/18/21 14:45 98.8 68 18 153/84 (107) 93 Room Air* 0 21 Intake and Output 10/18/21 07:00 Intake Total 0 ml Output Total 1920 ml Balance -1920 ml Intake Oral 0 ml Output Urine Total 1200 ml Gastric Drainage Total 250 ml Drainage Total 470 ml Laboratory Tests Test 10/17/21 04:58 10/18/21 04:29 White Blood Count 6.8 10^3/uL 5.0 10^3/uL Red Blood Count 4.13 10^6/uL 4.12 10^6/uL Hemoglobin 14.0 g/dL 14.1 g/dL Hematocrit 41.6 % 41.5 % Mean Corpuscular Volume 100.7 fL 100.7 fL Mean Corpuscular Hemoglobin 33.9 pg 34.2 pg Mean Corpuscular Hemoglobin Concent 33.7 g/dL 34.0 g/dL Red Cell Distribution Width 12.1 % 11.9 % Platelet Count 212 10^3/uL 239 10^3/uL Mean Platelet Volume 9.3 fL 9.4 fL Sodium Level 137 mmol/L 139 mmol/L Potassium Level 3.2 mmol/L 3.5 mmol/L Chloride Level 101.0 mmol/L 104.0 mmol/L Carbon Dioxide Level 27.9 mmol/L 24.4 mmol/L Anion Gap 11.3 14.1 Blood Urea Nitrogen 4 mg/dL 6 mg/dL Creatinine 0.67 mg/dL 0.69 mg/dL Estimated GFR () 140.7 136.0 Est GFR (CKD-EPI)(Non-Afr [place]ian) 116.3 112.4 BUN/Creatinine Ratio 5.0 8.0 Glucose Level 99 mg/dL 114 mg/dL Calcium Level 8.4 mg/dL 8.6 mg/dL Total Bilirubin 1.0 mg/dL 0.9 mg/dL Aspartate Amino Transf (AST/SGOT) 24 U/L 21 U/L Alanine Aminotransferase (ALT/SGPT) 21 U/L 13 U/L Alkaline Phosphatase 53 U/L 57 U/L Total Protein 6.1 g/dL 6.4 g/dL Albumin 2.4 g/dL 2.5 g/dL Globulin 3.7 3.9 Albumin/Globulin Ratio 0.648 0.641 Current Medications Medications (Trade) Dose Ordered Sig/Adali PRN Reason Start Time Stop Time Status Last Admin Bisacodyl (Dulcolax) 10 mg DAILY 10/17/21 09:00 11/16/21 08:59 10/18/21 09:18 Enoxaparin Sodium (Lovenox) 30 mg BID@06,18 10/15/21 18:00 11/14/21 17:59 10/18/21 06:37 Morphine Sulfate (Morphine Sulfate) 1 mg Q3HR PRN PAIN 4 - 6 10/15/21 18:00 11/14/21 17:59 10/16/21 01:57 Morphine Sulfate (Morphine Sulfate) 3 mg Q3HR PRN PAIN 7 - 10 10/15/21 18:00 11/14/21 17:59 10/18/21 03:50 Nicotine (Nicotine 21mg Patch) 1 each DAILY 10/15/21 21:00 11/14/21 20:59 10/18/21 09:18 Ondansetron HCl (Zofran) 4 mg Q4H PRN NAUSEA / VOMITING 10/16/21 01:00 11/15/21 00:59 10/16/21 01:57 Pantoprazole Sodium (Protonix Iv) 40 mg DAILY 10/16/21 09:00 11/15/21 08:59 10/18/21 09:18 Piperacillin Sod/ Tazobactam Sod 3.375 gm/Sodium Chloride 100 ml @ 200 mls/hr Q6H 10/17/21 03:00 10/26/21 03:00 10/18/21 15:50 Promethazine HCl (Phenergan) 25 mg Q4 PRN NAUSEA / VOMITING 10/16/21 23:00 11/15/21 22:59 Orders - DONAVAN CAMARA MD Promethazine Hcl (Phenergan) (10/16/21 23:00) Piperacillin Sodium/Tazobactam (Zosyn 3. (10/17/21 03:00) Bisacodyl (Dulcolax) (10/17/21 09:00) Ct Abd/Pel With Iv Contrast (10/17/21 09:53) Heart: Regular rate, Normal S1, Normal S2 Abdomen: Soft, Other (Distended, tender, bowel sounds hypoactive) Post Operative Incision Status: hypoacttive BS, gen tenderness, Incision and drain sites clean, dry, intact Lungs: Clear to auscultation, Normal air movement Skin: No rashes, No breakdown, No significant lesion DONAVAN CAMARA MD Oct 18, 2021 17:34
[2021-10-18] MEDS ORDERED: DULCOLAX RC ONE (19:00)
[2021-10-18 20:10] VITALS: BP 127/76
[2021-10-18] MEDS ORDERED: ATIVAN IV PRN (22:00)
[2021-10-19] MEDS: MORPHINE SULFATE IV PRN (02:10)
[2021-10-19] MEDS: ZOSYN 3.375 GM 3.375 GM in NS 100ML 100 ML IV SCH ×4 (02:45→21:30)
[2021-10-19 04:37] VITALS: BP 160/80
[2021-10-19 05:13] LABS: MEAN CORP HGB 33.7 pg (26-34); RED CELL DISTRIBUTION WIDTH 12.1 % (11.5-14.5)
[2021-10-19 05:36] LABS: CARBON DIOXIDE 25.7 mmol/L (20.0-32)
[2021-10-19] MEDS: LOVENOX SQ SCH ×2 (05:41→18:52)
[2021-10-19] MEDS: D5LR 1000ML/KCL 20MEQ 1,000 ML IV SCH ×4 (05:42→23:50)
[2021-10-19] MEDS ORDERED: KCL 20MEQ/100ML 100 ML IV ONE (08:00)
[2021-10-19 08:01] VITALS: BP 146/79
[2021-10-19] MEDS: DULCOLAX RC SCH (09:19)
[2021-10-19] MEDS: PROTONIX IV IV SCH (09:19)
[2021-10-19] MEDS: NICOTINE 21MG PATCH TD SCH (09:19)
[2021-10-19] MEDS ORDERED: MORPHINE SULFATE IV PRN (11:00)
--- NOTE | 2021-10-19 12:15 | NUR ---
NG TUBE TO GRAVITY AT THIS TIME PER DR CAMARA
[2021-10-19 12:25] VITALS: BP 164/85
--- NOTE | 2021-10-19 13:36 | PRM.PN ---
Subjective Subjective Date: Oct 19, 2021 Time: 11:30 Subjective History of Present Illness Reason for Visit: Abdominal pain History of Present Illness 71-year-old male with history of hypertension, cigarette smoker,? COPD presented emergency room with abdominal pain and distention. Patient had a colonoscopy few days ago at the [facility]. Patient started having abdominal p ain and distention. Denies fever or chills.Work-up in the emergency room including CT abdomen pelvis:1. Free fluid and small amount of free air is noted in the abdomen compatible with bowel perforation. Showed signs of bowel perforation with free fluid and air. Surgeon was consulted. Patient is being taken to the OR. Past Medical History Cardiac: HTN Pulmonary: COPD Past Surgical History: No pertinent hx Past Social History Smoke: 1 pack per day Drugs: None S: Patient is slowly improving. States that he moved bowels twice last evening. Reports her stool was black and the second stool was brown. He is passing urine and passing flatus. POD#4 after Exploratory laparotomy, lysis of adhesions, drainage of intra-abdominal fluid collections/abscesses, excision of perforation site with primary closure, appendectomy with inversion of the stump, placement of drains x2 in the right upper quadrant overlying the liver and near the hepatic flexure, and a second drain in the left lower quadrant. Abd pain is imp roving.. Denies any nausea or vomiting. Afebrile and VSS. Potassium is 3.6 Today. WBC is within normal limit. Patient remains on Zosyn. VTE VTE Risk Total Score: 4 VTE Risk Score VTE Risk: Score 0-1 = Low Risk (Aggressive mobilization; early ambulation; no VTE prophylaxis required) Score 2: Moderate Risk (Intermittent/Pneumatic Compression Device OR Lovenox/Heparin/Coumadin) Score 3-4: High Risk (Intermittent/Pneumatic Compression Device AND Lovenox/Heparin/Coumadin) Score > or =5: Highest Risk (Intermittent/Pneumatic Compression Device AND Lovenox/Heparin/Coumadin) Antico:Hep/LMWH/Coum/Xarelto: Yes Mechanical device ordered: Yes Review of Systems Constitutional: No: Fever, Chills Gastrointestinal: Nausea, Abdominal Pain, Other (Distention) Allergies: Coded Allergies: No Known Allergies (Unverified , 10/15/21) Objective Vitals and I/O Vital Sign - Last 24 Hours 8/3110/19/21 10/19/21 10/19/21 08:01 08:02 11:37 12:25 Temp 98.0 98.8 Pulse 89 64 Resp 18 18 B/P (MAP) 146/79 (101) 164/85 (111) Pulse Ox 99 97 O2 Delivery Room Air* Room Air Room Air* Room Air* O2 Flow Rate 0 0.00 0 0 FiO2 21 21 21 Intake and Output 10/19/21 07:00 Output Total 795 ml Balance -795 ml General: Alert, Oriented X3, Cooperative, No acute distress, mild distress HEENT: Atraumatic, PERRLA, EOMI, Mucous membr. moist/pink Neck: Supple, No JVD Lungs: Clear to auscultation, Normal air movement Heart: Regular rate, Normal S1, Normal S2 Abdomen: Soft, Other (Distended, tender, bowel sounds hypoactive) Extremities: No clubbing, No cyanosis, No edema Skin: No rashes, No breakdown, No significant lesion Neuro: Normal gait, Normal speech, Strength at 5/5 X4 ext, Normal tone, Sensation intact Psych/Mental Status: Mental status NL, Mood NL All Results(Lab/Rad) Laboratory Tests Test 10/15/21 15:50 10/16/21 04:55 10/16/21 06:08 Pro-B-Type Natriuretic Peptide 350 pg/mL White Blood Count 6.6 10^3/uL Red Blood Count 4.11 10^6/uL Hemoglobin 13.9 g/dL Hematocrit 42.2 % Mean Corpuscular Volume 102.7 fL Mean Corpuscular Hemoglobin 33.8 pg Mean Corpuscular Hemoglobin Concent 32.9 g/dL Red Cell Distribution Width 12.4 % Platelet Count 186 10^3/uL Mean Platelet Volume 10.1 fL Neutrophils (%) (Auto) 83.9 % Lymphocytes (%) (Auto) 6.2 % Monocytes (%) (Auto) 9.4 % Neutrophils # (Auto) 5.6 10^3/uL Lymphocytes # (Auto) 0.41 10^3/uL1 Monocytes # (Auto) 0.6 10^3/uL Absolute Immature Granulocyte (auto 0.02 10^3 u/L Absolute Eosinophils (auto) 0.0 10^3/uL Immature Granulocytes % 0.30 % Eosinophils % 0.0 % Basophils % 0.2 % Basophils # 0.0 10^3/uL Sodium Level 137 mmol/L Potassium Level 3.3 mmol/L Chloride Level 99.0 mmol/L Carbon Dioxide Level 29.3 mmol/L Anion Gap 12.0 Blood Urea Nitrogen 8 mg/dL Creatinine 0.74 mg/dL Estimated GFR () 125.5 Est GFR (CKD-EPI)(Non-Afr Northern Irish) 103.7 BUN/Creatinine Ratio 10.0 Glucose Level 172 mg/dL Calcium Level 8.5 mg/dL Total Bilirubin 0.9 mg/dL Aspartate Amino Transf (AST/SGOT) 28 U/L Alanine Aminotransferase (ALT/SGPT) 21 U/L Alkaline Phosphatase 50 U/L Total Protein 5.9 g/dL Albumin 2.4 g/dL Globulin 3.5 Albumin/Globulin Ratio 0.685 Segmented Neutrophils 89 % Lymphocytes 5 % Monocytes 6 % Platelet Estimate ADEQUATE Platelet Morphology NORMAL Current Medications Medications (Trade) Dose Ordered Sig/Adali Route PRN Reason Start Time Stop Time Status Last Admin Dose Admin Sodium Chloride 1,000 ml @ 1,200 mls/hr Q50M STAT IV 10/15/21 09:12 10/15/21 13:03 DC 10/15/21 09:24 Ondansetron HCl (Zofran) 4 mg STAT STAT IV 10/15/21 09:12 10/15/21 13:03 DC 10/15/21 09:24 Morphine Sulfate (Morphine Sulfate) 4 mg STAT STAT IV 10/15/21 09:12 10/15/21 13:04 DC 10/15/21 09:24 Potassium Chloride/Sodium Chloride 1,000 ml @ 100 mls/hr Q10H STAT IV 10/15/21 10:32 10/15/21 16:42 DC 10/15/21 10:53 Piperacillin Sod/ Tazobactam Sod 3.375 gm/Sodium Chloride 100 ml @ 200 mls/hr STAT STAT IV 10/15/21 10:32 10/15/21 11:01 DC 10/15/21 10:52 Sodium Chloride 100 ml @ ud STK-MED ONCE IV 10/15/21 10:42 10/15/21 10:42 DC Potassium Chloride/Sodium Chloride 1,000 ml @ ud STK-MED ONCE .ROUTE 10/15/21 10:42 10/15/21 10:42 DC Piperacillin Sod/ Tazobactam Sod 3.375 gm/Sodium Chloride 100 ml @ 200 mls/hr Q6H IV 10/15/21 18:00 10/15/21 20:50 DC Pantoprazole Sodium (Protonix Iv) 40 mg DAILY IV 10/16/21 09:00 10/15/21 20:49 DC Potassium Cl/ Dextrose/Lact Ringer's 1,000 ml @ 100 mls/hr Q10H IV 10/15/21 12:00 10/15/21 20:49 DC Lidocaine HCl (Xylocaine 2% 5ml Vial) 500 mg STK-MED ONCE .ROUTE 10/15/21 12:32 10/15/21 12:33 DC Propofol (Diprivan) 200 mg STK-MED ONCE IV 10/15/21 12:33 10/15/21 12:33 DC Rocuronium [place] (Zemuron) 100 mg STK-MED ONCE IV 10/15/21 12:33 10/15/21 12:33 DC Hydromorphone HCl (Dilaudid) 2 mg STK-MED ONCE .ROUTE 10/15/21 12:34 10/15/21 12:34 DC Fentanyl Citrate (Sublimaze) 50 mcg STK-MED ONCE .ROUTE 10/15/21 12:34 10/15/21 12:34 DC Bupivacaine HCl (Sensorcaine-Mpf 0.25% Vial) 2.5 mg STK-MED ONCE .ROUTE 10/15/21 12:36 10/15/21 12:37 DC Sodium Chloride (Sodium Chloride Irr Bottle) 1,000 ml STK-MED ONCE IR 10/15/21 12:41 10/15/21 12:42 DC Sterile Water (Water) 1,000 ml STK-MED ONCE .ROUTE 10/15/21 12:41 10/15/21 12:42 DC Morphine Sulfate (Morphine Sulfate) 4 mg STAT STAT IV 10/15/21 09:12 10/15/21 13:04 DC Sodium Chloride 100 ml @ ud STK-MED ONCE IV 10/15/21 13:10 10/15/21 13:10 DC Lidocaine/ Epinephrine (Xylocaine 1%-Epi 1:100,000) 30 ml STK-MED ONCE .ROUTE 10/15/21 13:14 10/15/21 13:15 DC Bupivacaine HCl (Marcaine 0.5%) 1 ml STK-MED ONCE .ROUTE 10/15/21 13:15 10/15/21 13:15 DC Bupivacaine HCl (Marcaine 0.5%) 1 ml STK-MED ONCE .ROUTE 10/15/21 13:16 10/15/21 13:17 DC Acetaminophen 100 ml @ ud STK-MED ONCE IV 10/15/21 13:26 10/15/21 13:26 DC Piperacillin Sod/ Tazobactam Sod 3.375 gm/Sodium Chloride 100 ml @ 200 mls/hr Q6H IV 10/15/21 14:00 10/15/21 15:17 DC 10/15/21 13:15 Promethazine HCl (Phenergan) 12.5 mg Q4HR IV 10/15/21 16:00 11/14/21 15:59 10/15/21 20:35 Pantoprazole Sodium (Protonix Iv) 40 mg DAILY IV 10/16/21 09:00 11/15/21 08:59 10/16/21 09:29 Simethicone (Genasyme) 80 mg Q4 PRN PO GAS/BLOATING 10/15/21 15:00 11/14/21 14:59 Enoxaparin Sodium (Lovenox) 30 mg BID@06,18 SQ 10/15/21 18:00 11/14/21 17:59 10/16/21 05:33 Potassium Chloride/Dextrose/ Sod Cl 1,000 ml @ 140 mls/hr DAILY24 IV 10/15/21 15:00 10/15/21 16:42 DC Piperacillin Sod/ Tazobactam Sod 3.375 gm/Sodium Chloride 100 ml @ 200 mls/hr Q6H IV 10/15/21 19:00 10/25/21 18:59 10/16/21 13:52 Hydromorphone HCl (Dilaudid) 2 mg STK-MED ONCE .ROUTE 10/15/21 15:28 10/15/21 15:28 DC Hydromorphone HCl (Dilaudid) 0.5 mg OT ONCE IV 10/15/21 15:30 10/15/21 20:49 DC 10/15/21 15:32 Hydromorphone HCl (Dilaudid) 0.5 mg OT ONCE IV 10/15/21 15:40 10/15/21 20:49 DC 10/15/21 15:44 Potassium Cl/ Dextrose/Lact Ringer's 1,000 ml @ 130 mls/hr Q7H42M IV 10/15/21 17:00 11/14/21 16:59 10/16/21 01:58 Morphine Sulfate (Morphine Sulfate) 1 mg Q3HR PRN IV PAIN 4 - 6 10/15/21 18:00 11/14/21 17:59 10/16/21 01:57 Morphine Sulfate (Morphine Sulfate) 3 mg Q3HR PRN IV PAIN 7 - 10 10/15/21 18:00 11/14/21 17:59 10/16/21 04:43 Nicotine (Nicotine 21mg Patch) 1 each DAILY TD 10/15/21 21:00 11/14/21 20:59 10/16/21 09:29 Sodium Chloride 25 ml @ ud STK-MED ONCE IV 10/15/21 19:13 10/15/21 19:14 DC Sodium Chloride 100 ml @ ud STK-MED ONCE IV 10/15/21 19:18 10/15/21 19:19 DC Ondansetron HCl (Zofran) 4 mg Q4H PRN IV NAUSEA / VOMITING 10/16/21 01:00 11/15/21 00:59 10/16/21 01:57 Sodium Chloride 100 ml @ ud STK-MED ONCE IV 10/16/21 01:47 10/16/21 01:47 DC Potassium Chloride 200 ml @ 50 mls/hr OT ONCE IV 10/16/21 08:30 10/16/21 12:29 DC 10/16/21 10:15 Sodium Chloride 500 ml @ ud STK-MED ONCE IV 10/16/21 09:57 10/16/21 09:57 DC Sterile Water (Water) 1,000 ml STK-MED ONCE .ROUTE 10/16/21 11:30 10/16/21 11:30 DC Course Sepsis Screening Results: Posi: NEGATIVE Sepsis Qualifier/Stage: NO DEFINITE RISK Duration or Total Time Spent w: 60 min Vitals & review Data Vital Sign - Last 24 Hours 10/15/21 10/15/21 10/15/21 10/15/21 14:52 14:52 15:02 15:12 Temp 97.1 Pulse 100 100 103 Resp 16 16 16 B/P (MAP) 154/84 (107) 146/100 (115) 153/83 (106) Pulse Ox 100 100 97 O2 Delivery Non-Rebreather Non-Rebreather Non-Rebreather O2 Flow Rate 15.00 15.00 15.00 15.00 10/15/21 10/15/21 10/15/21 10/15/21 15:22 15:32 15:42 15:52 Pulse 103 98 92 Resp 16 16 16 B/P (MAP) 153/83 (106) 158/90 (112) 148/87 (107) Pulse Ox 97 97 97 O2 Delivery Non-Rebreather Nasal Canula Nasal Canula O2 Flow Rate 15.00 3.00 3.00 3.00 10/15/21 10/15/21 10/15/21 10/15/21 15:52 15:59 16:00 16:44 Temp 98.4 97.8 Pulse 81 77 91 Resp 16 21 18 B/P (MAP) 144/83 (103) 144/75 (98) 133/82 (99) Pulse Ox 96 92 96 O2 Delivery Nasal Canula Nasal Cannula* Nasal Cannula* Nasal Cannula O2 Flow Rate 3.00 3 3 3.00 FiO2 32 32 10/15/21 10/15/21 10/15/21 10/15/21 17:00 17:19 17:27 18:00 Pulse 65 62 Resp 20 16 18 B/P (MAP) 122/85 (97) 124/86 (99) Pulse Ox 97 98 97 O2 Delivery Nasal Cannula* Nasal Cannula* Nasal Cannula* O2 Flow Rate 3 2 3 FiO2 32 28 32 10/15/21 10/15/21 10/15/21 10/15/21 18:15 18:30 18:31 18:45 Pulse 62 61 60 61 Resp 20 16 18 22 B/P (MAP) 115/61 (79) Pulse Ox 99 97 99 99 O2 Delivery Nasal Cannula* Nasal Cannula* Nasal Cannula* Nasal Cannula* O2 Flow Rate 3 3 3 3 FiO2 32 32 32 32 10/15/21 10/15/21 10/15/21 10/15/21 19:00 19:02 19:15 19:30 Pulse 63 65 63 64 Resp 20 21 21 12 B/P (MAP) 138/75 (96) Pulse Ox 99 99 100 100 O2 Delivery Nasal Cannula* Nasal Cannula* Nasal Cannula* Nasal Cannula* O2 Flow Rate 3 3 3 3 FiO2 32 32 32 32 10/15/21 10/15/21 10/15/21 10/15/21 19:45 20:00 20:00 20:15 Temp 98.1 Pulse 61 62 63 Resp 17 18 12 B/P (MAP) 134/71 (92) Pulse Ox 98 99 99 O2 Delivery Nasal Cannula* Nasal Cannula Nasal Cannula* Nasal Cannula* O2 Flow Rate 3 2.00 3 3 FiO2 32 32 32 10/15/21 10/15/21 10/15/21 10/15/21 20:30 20:45 21:00 21:15 Pulse 60 61 60 59 Resp 15 16 18 14 B/P (MAP) 130/72 (91) 132/75 (94) Pulse Ox 100 100 100 100 O2 Delivery Nasal Cannula* Nasal Cannula* Nasal Cannula* Nasal Cannula* O2 Flow Rate 3 3 3 3 FiO2 32 32 32 32 10/15/21 10/15/21 10/15/21 10/15/21 21:30 21:31 21:45 22:00 Pulse 62 60 61 62 Resp 20 11 12 12 B/P (MAP) 136/76 (96) 135/68 (90) Pulse Ox 100 100 100 100 O2 Delivery Nasal Cannula* Nasal Cannula* Nasal Cannula* Nasal Cannula* O2 Flow Rate 3 3 3 3 FiO2 32 32 32 32 10/15/21 10/15/21 10/15/21 10/15/21 22:15 22:30 22:45 23:00 Pulse 63 60 62 61 Resp 17 13 16 14 B/P (MAP) 137/63 (87) 138/73 (94) Pulse Ox 100 100 100 100 O2 Delivery Nasal Cannula* Nasal Cannula* Nasal Cannula* Nasal Cannula* O2 Flow Rate 3 3 3 3 FiO2 32 32 32 32 10/15/21 10/15/21 10/15/21 10/15/21 23:15 23:25 23:30 23:31 Pulse 61 62 61 61 Resp 10 18 14 10 B/P (MAP) 144/70 (94) Pulse Ox 100 99 100 100 O2 Delivery Nasal Cannula* Nasal Cannula* Nasal Cannula* Nasal Cannula* O2 Flow Rate 3 2 3 3 FiO2 32 28 32 32 10/15/21 10/16/21 10/16/21 10/16/21 23:45 00:00 00:00 00:15 Temp 98.1 Pulse 61 60 64 Resp 11 13 12 B/P (MAP) 140/68 (92) Pulse Ox 100 100 100 O2 Delivery Nasal Cannula* Nasal Cannula Nasal Cannula* Nasal Cannula* O2 Flow Rate 3 2.00 3 3 FiO2 32 32 32 10/16/21 10/16/21 10/16/21 10/16/21 00:30 00:32 00:45 01:00 Pulse 63 63 65 65 Resp 16 12 12 12 B/P (MAP) 142/67 (92) Pulse Ox 100 99 100 100 O2 Delivery Nasal Cannula* Nasal Cannula* Nasal Cannula* Nasal Cannula* O2 Flow Rate 3 3 3 3 FiO2 32 32 32 32 10/16/21 10/16/21 10/16/21 10/16/21 01:01 01:15 01:30 01:45 Pulse 64 63 67 67 Resp 12 12 16 14 B/P (MAP) 144/68 (93) 140/74 (96) Pulse Ox 100 100 100 100 O2 Delivery Nasal Cannula* Nasal Cannula* Nasal Cannula* Nasal Cannula* O2 Flow Rate 3 3 3 3 FiO2 32 32 32 32 10/16/21 10/16/21 10/16/21 10/16/21 02:00 02:15 02:30 02:45 Pulse 65 67 70 66 Resp 13 14 10 10 B/P (MAP) 147/74 (98) 142/72 (95) Pulse Ox 100 100 100 100 O2 Delivery Nasal Cannula* Nasal Cannula* Nasal Cannula* Nasal Cannula* O2 Flow Rate 3 3 3 3 FiO2 32 32 32 32 10/16/21 10/16/21 10/16/21 10/16/21 03:00 03:15 03:30 03:45 Pulse 68 69 70 71 Resp 11 12 30 21 B/P (MAP) 152/71 (98) 156/71 (99) Pulse Ox 100 100 100 100 O2 Delivery Nasal Cannula* Nasal Cannula* Nasal Cannula* Nasal Cannula* O2 Flow Rate 3 3 2 2 FiO2 32 32 28 28 10/16/21 10/16/21 10/16/21 10/16/21 04:00 04:15 04:30 04:45 Temp 98.2 Pulse 70 67 70 71 Resp 15 11 15 13 B/P (MAP) 152/71 (98) 152/72 (98) Pulse Ox 100 100 100 100 O2 Delivery Nasal Cannula* Nasal Cannula* Nasal Cannula* Nasal Cannula* O2 Flow Rate 2 2 2 2 FiO2 28 10/16/21 10/16/21 10/16/21 10/16/21 05:00 05:15 05:30 05:32 Pulse 72 67 66 66 Resp 15 12 12 13 B/P (MAP) 150/73 (98) Pulse Ox 100 100 100 100 O2 Delivery Nasal Cannula* Nasal Cannula* Nasal Cannula* Nasal Cannula* O2 Flow Rate 2 2 2 2 FiO2 10/16/21 10/16/21 10/16/21 10/16/21 05:41 05:45 05:48 06:00 Pulse 67 72 70 Resp 14 19 13 B/P (MAP) 142/68 (92) 149/59 (89) Pulse Ox 100 100 100 O2 Delivery Nasal Cannula* Nasal Cannula* Nasal Cannula Nasal Cannula* O2 Flow Rate 2 2 2.00 2 FiO2 10/16/21 10/16/21 10/16/21 10/16/21 06:45 07:00 07:15 07:30 Pulse 66 66 67 66 Resp 13 6 11 13 B/P (MAP) 151/68 (95) 149/64 (92) Pulse Ox 100 100 100 100 O2 Delivery Nasal Cannula* Nasal Cannula* Nasal Cannula* Nasal Cannula* O2 Flow Rate 2 2 2 2 FiO2 10/16/21 10/16/21 10/16/21 10/16/21 07:45 08:00 08:00 08:15 Pulse 65 65 67 Resp 9 17 B/P (MAP) 145/70 (95) Pulse Ox 100 100 100 O2 Delivery Nasal Cannula* Nasal Cannula* Nasal Cannula Nasal Cannula* O2 Flow Rate 2 2 2.00 2 FiO2 10/16/21 10/16/21 10/16/21 10/16/21 08:28 08:31 08:45 09:00 Temp 97.9 Pulse 62 66 65 68 Resp 18 14 16 5 B/P (MAP) 154/73 (100) 164/73 (103) Pulse Ox 98 97 99 98 O2 Delivery Nasal Cannula* Nasal Cannula* Nasal Cannula* Nasal Cannula* O2 Flow Rate 1 2 2 2 FiO2 24 10/16/21 10/16/21 10/16/21 10/16/21 09:15 09:30 09:45 10:00 Pulse 66 65 66 70 Resp 9 13 14 14 B/P (MAP) 161/77 (105) 148/72 (97) Pulse Ox 99 97 99 98 O2 Delivery Nasal Cannula* Nasal Cannula* Nasal Cannula* Nasal Cannula* O2 Flow Rate 2 2 2 2 FiO2 28 28 28 28 10/16/21 10/16/21 10/16/21 10:15 10:31 12:33 Pulse 68 69 Resp 13 20 B/P (MAP) 157/64 (95) Pulse Ox 97 97 O2 Delivery Nasal Cannula* Nasal Cannula* Nasal Cannula O2 Flow Rate 2 2 2.00 FiO2 28 28 Intake and Output 10/16/21 07:00 Intake Total 4200 ml Output Total 2610 ml Balance 1590 ml Laboratory Tests Test 10/15/21 09:01 10/15/21 09:12 10/15/21 09:27 10/15/21 15:50 White Blood Count 8.2 10^3/uL Red Blood Count 4.56 10^6/uL Hemoglobin 15.6 g/dL Hematocrit 46.6 % Mean Corpuscular Volume 102.2 fL Mean Corpuscular Hemoglobin 34.2 pg Mean Corpuscular Hemoglobin Concent 33.5 g/dL Red Cell Distribution Width 12.5 % Platelet Count 200 10^3/uL Mean Platelet Volume 9.6 fL Neutrophils (%) (Auto) 83.2 % Lymphocytes (%) (Auto) 8.0 % Monocytes (%) (Auto) 8.0 % Neutrophils # (Auto) 6.8 10^3/uL Lymphocytes # (Auto) 0.66 10^3/uL1 Monocytes # (Auto) 0.7 10^3/uL Absolute Immature Granulocyte (auto 0.03 10^3 u/L Absolute Eosinophils (auto) 0.0 10^3/uL Immature Granulocytes % 0.40 % Eosinophils % 0.2 % Basophils % 0.2 % Basophils # 0.0 10^3/uL Prothrombin Time 9.1 SEC Prothrombin Time INR (Non-Therap) 0.9 Activated Partial Thromboplast Time 27.1 SEC Sodium Level 134 mmol/L Potassium Level 3.7 mmol/L Chloride Level 93.0 mmol/L Carbon Dioxide Level 28.4 mmol/L Anion Gap 16.3 Blood Urea Nitrogen 14 mg/dL Creatinine 0.85 mg/dL Estimated GFR () 106.9 Est GFR (CKD-EPI)(Non-Afr [place]) 88.4 BUN/Creatinine Ratio 16.0 Glucose Level 106 mg/dL Calcium Level 10.1 mg/dL Total Bilirubin 1.5 mg/dL Aspartate Amino Transf (AST/SGOT) 28 U/L Alanine Aminotransferase (ALT/SGPT) 27 U/L Alkaline Phosphatase 84 U/L Total Protein 8.1 g/dL Albumin 3.4 g/dL Globulin 4.7 Albumin/Globulin Ratio 0.723 Lipase 24 U/L Urine Collection Type UNKNOWN Urine Color FORD Urine Appearance CLEAR Urine Bilirubin 2+ Urine Ictotest POSITIVE Urine Ketones TRACE Urine Specific Jackson 1.010 Urine pH 6.0 Urine Protein 1+ Urine Urobilinogen 4.0 E.U./dL Urine Nitrate POSITIVE Urine Leukocyte Esterase NEGATIVE Urine Glucose (Auto)(UA) NEGATIVE Urine Ketones (Manual) NEGATIVE Urine Blood NEGATIVE Urine RBC 0-2 RBC/HPF Urine WBC 0-2 WBC/HPF Urine Squamous Epithelial Cells FEW Urine Calcium Oxalate Crystals FEW Urine Bacteria FEW Lactic Acid Level 1.4 mmol/L Pro-B-Type Natriuretic Peptide 350 pg/mL Test 10/16/21 04:55 10/16/21 06:08 White Blood Count 6.6 10^3/uL Red Blood Count 4.11 10^6/uL Hemoglobin 13.9 g/dL Hematocrit 42.2 % Mean Corpuscular Volume 102.7 fL Mean Corpuscular Hemoglobin 33.8 pg Mean Corpuscular Hemoglobin Concent 32.9 g/dL Red Cell Distribution Width 12.4 % Platelet Count 186 10^3/uL Mean Platelet Volume 10.1 fL Neutrophils (%) (Auto) 83.9 % Lymphocytes (%) (Auto) 6.2 % Monocytes (%) (Auto) 9.4 % Neutrophils # (Auto) 5.6 10^3/uL Lymphocytes # (Auto) 0.41 10^3/uL1 Monocytes # (Auto) 0.6 10^3/uL Absolute Immature Granulocyte (auto 0.02 10^3 u/L Absolute Eosinophils (auto) 0.0 10^3/uL Immature Granulocytes % 0.30 % Eosinophils % 0.0 % Basophils % 0.2 % Basophils # 0.0 10^3/uL Sodium Level 137 mmol/L Potassium Level 3.3 mmol/L Chloride Level 99.0 mmol/L Carbon Dioxide Level 29.3 mmol/L Anion Gap 12.0 Blood Urea Nitrogen 8 mg/dL Creatinine 0.74 mg/dL Estimated GFR () 125.5 Est GFR (CKD-EPI)(Non-Afr [place]) 103.7 BUN/Creatinine Ratio 10.0 Glucose Level 172 mg/dL Calcium Level 8.5 mg/dL Total Bilirubin 0.9 mg/dL Aspartate Amino Transf (AST/SGOT) 28 U/L Alanine Aminotransferase (ALT/SGPT) 21 U/L Alkaline Phosphatase 50 U/L Total Protein 5.9 g/dL Albumin 2.4 g/dL Globulin 3.5 Albumin/Globulin Ratio 0.685 Segmented Neutrophils 89 % Lymphocytes 5 % Monocytes 6 % Platelet Estimate ADEQUATE Platelet Morphology NORMAL Current Medications Medications (Trade) Dose Ordered Sig/Adali PRN Reason Start Time Stop Time Status Last Admin Enoxaparin Sodium (Lovenox) 30 mg BID@06,18 10/15/21 18:00 11/14/21 17:59 10/16/21 05:33 Morphine Sulfate (Morphine Sulfate) 1 mg Q3HR PRN PAIN 4 - 6 10/15/21 18:00 11/14/21 17:59 10/16/21 01:57 Morphine Sulfate (Morphine Sulfate) 3 mg Q3HR PRN PAIN 7 - 10 10/15/21 18:00 11/14/21 17:59 10/16/21 04:43 Nicotine (Nicotine 21mg Patch) 1 each DAILY 10/15/21 21:00 11/14/21 20:59 10/16/21 09:29 Ondansetron HCl (Zofran) 4 mg Q4H PRN NAUSEA / VOMITING 10/16/21 01:00 11/15/21 00:59 10/16/21 01:57 Pantoprazole Sodium (Protonix Iv) 40 mg DAILY 10/16/21 09:00 11/15/21 08:59 10/16/21 09:29 Piperacillin Sod/ Tazobactam Sod 3.375 gm/Sodium Chloride 100 ml @ 200 mls/hr Q6H 10/15/21 19:00 10/25/21 18:59 10/16/21 13:52 Potassium Cl/ Dextrose/Lact Ringer's 1,000 ml @ 130 mls/hr Q7H42M 10/15/21 17:00 11/14/21 16:59 10/16/21 01:58 Promethazine HCl (Phenergan) 12.5 mg Q4HR 10/15/21 16:00 11/14/21 15:59 10/15/21 20:35 Simethicone (Genasyme) 80 mg Q4 PRN GAS/BLOATING 10/15/21 15:00 11/14/21 14:59 LEVEL 1 SEPSIS INFECTION CRITE: ABX Therapy, Abdominal Pain, Recent Invasive Procedure LEVEL 2-SIRS (LIST ALL THAT AP: None/Not assessed Cardiovascular Evidence: Not Assessed or None Hematologic Evidence: None/Not assessed Hepatic Evidence: None/Not assessed Metabolic Evidence: None/Not assessed Neurological Evidence: None/Not assessed Respiratory Evidence: None/Not assessed Renal Evidence: None/Not assessed O2 Sat by Pulse Oximetry: 97 Oxygen Flow Rate: 0.00 Assessment/Plan Assessment/Plan Assessment/Plan Problems: (1) Perforated bowel Status: Acute ICD Code: K63.1 - Perforation of intestine (nontraumatic) POD#4 exp lap. Improving. Continue Zosyn. Diet ordered per General surgery. He is n.p.o. at present. continue IV fluid. (2) Cigarette smoker Status: Chronic ICD Code: F17.210 - Nicotine dependence, cigarettes, uncomplicated Declines patch. (3) Hypertension Status: Chronic ICD Code: I10 - Essential (primary) hypertension Continue monitoring bp. No med. (4) COPD (chronic obstructive pulmonary disease) Status: Chronic ICD Code: J44.9 - Chronic obstructive pulmonary disease, unspecified Stable, not in exacerbation. #5-Mild hypokalemiapotassium chloride IV 20 M EQ one-time today. We will repeat CMP in the morning. We will keep potassium more than 4. GI prophylaxis pantoprazole DVT prophylaxis SCDs and lovenox. Expect length of stay more than 1 midnight SHARON WELSH MD Oct 19, 2021 13:36
--- NOTE | 2021-10-19 14:50 | NUR ---
DR WILKINSON AT BEDSIDE
--- NOTE | 2021-10-19 14:53 | PRM.PN ---
VTE VTE Risk Total Score: 4 VTE Risk Score VTE Risk: Score 0-1 = Low Risk (Aggressive mobilization; early ambulation; no VTE prophylaxis required) Score 2: Moderate Risk (Intermittent/Pneumatic Compression Device OR Lovenox/Heparin/Coumadin) Score 3-4: High Risk (Intermittent/Pneumatic Compression Device AND Lovenox/Heparin/Coumadin) Score > or =5: Highest Risk (Intermittent/Pneumatic Compression Device AND Lovenox/Heparin/Coumadin) Antico:Hep/LMWH/Coum/Xarelto: Yes Mechanical device ordered: Yes Progress Note Post-OP Subjective Date: Oct 19, 2021 Time: 14:15 Pre-Operative DX: perforated viscus/colon s/p colonoscopy, UTI Post-OP DX: perforated necrotic transverse colon near hepatic flexure Physician Notes: Patient states that he has absolutely no abdominal pain. He is not nauseated. He has been passing a large amount of flatus. He has had several small formed bowel movements. As I was waiting to see him, he had a small amount of flaky type bowel movement. He is having no problems urinating. Afebrile vital signs stable. DELBERT outputs are coming down nicely. NG output was minimal. It is now to gravity bag bag, and nothing has come out of the tube at this point, approximately 2 hours into the trial. Heart is regular rate and rhythm. Lungs are clear to auscultation bilaterally. Abdomen is soft and benign with good bowel sounds. Incision is clean, dry, and intact. Drain sites look good. Drain output is light yellow/serous. Labs look good. Laboratory Tests Test 10/17/21 04:58 10/18/21 04:29 10/19/21 04:56 White Blood Count 6.8 10^3/uL (4.5-11.0) 5.0 10^3/uL (4.5-11.0) 5.4 10^3/uL (4.5-11.0) Red Blood Count 4.13 10^6/uL (4.50-5.90) 4.12 10^6/uL (4.50-5.90) 3.92 10^6/uL (4.50-5.90) Hemoglobin 14.0 g/dL (13.9-16.3) 14.1 g/dL (13.9-16.3) 13.2 g/dL (13.9-16.3) Hematocrit 41.6 % (37.0-53.0) 41.5 % (37.0-53.0) 39.7 % (37.0-53.0) Mean Corpuscular Volume 100.7 fL (78-100) 100.7 fL (78-100) 101.3 fL (78-100) Mean Corpuscular Hemoglobin 33.9 pg (26-34) 34.2 pg (26-34) 33.7 pg (26-34) Mean Corpuscular Hemoglobin Concent 33.7 g/dL (33-36.5) 34.0 g/dL (33-36.5) 33.2 g/dL (33-36.5) Red Cell Distribution Width 12.1 % (11.5-14.5) 11.9 % (11.5-14.5) 12.1 % (11.5-14.5) Platelet Count 212 10^3/uL (150-400) 239 10^3/uL (150-400) 283 10^3/uL (150-400) Mean Platelet Volume 9.3 fL (7.8-11.0) 9.4 fL (7.8-11.0) 9.2 fL (7.8-11.0) Sodium Level 137 mmol/L (132-145) 139 mmol/L (132-145) 138 mmol/L (132-145) Potassium Level 3.2 mmol/L (3.6-5.2) 3.5 mmol/L (3.6-5.2) 3.6 mmol/L (3.6-5.2) Chloride Level 101.0 mmol/L (96-109) 104.0 mmol/L (96-109) 103.0 mmol/L (96-109) Carbon Dioxide Level 27.9 mmol/L (20.0-32) 24.4 mmol/L (20.0-32) 25.7 mmol/L (20.0-32) Anion Gap 11.3 14.1 12.9 Blood Urea Nitrogen 4 mg/dL (7-18) 6 mg/dL (7-18) 8 mg/dL (7-18) Creatinine 0.67 mg/dL (0.59-1.40) 0.69 mg/dL (0.59-1.40) 0.65 mg/dL (0.59-1.40) Estimated GFR () 140.7 (>/=60) 136.0 (>/=60) 145.7 (>/=60) Est GFR (CKD-EPI)(Non-Afr Moldovan) 116.3 (>/=60) 112.4 (>/=60) 120.4 (>/=60) BUN/Creatinine Ratio 5.0 8.0 12.0 Glucose Level 99 mg/dL (70-110) 114 mg/dL (70-110) 97 mg/dL (70-110) Calcium Level 8.4 mg/dL (8.4-10.5) 8.6 mg/dL (8.4-10.5) 8.7 mg/dL (8.4-10.5) Total Bilirubin 1.0 mg/dL (0.2-1.0) 0.9 mg/dL (0.2-1.0) 0.9 mg/dL (0.2-1.0) Aspartate Amino Transf (AST/SGOT) 24 U/L (0-35) 21 U/L (0-35) 21 U/L (0-35) Alanine Aminotransferase (ALT/SGPT) 21 U/L (12-78) 13 U/L (12-78) 17 U/L (12-78) Alkaline Phosphatase 53 U/L (50-136) 57 U/L (50-136) 54 U/L (50-136) Total Protein 6.1 g/dL (6.4-8.2) 6.4 g/dL (6.4-8.2) 5.9 g/dL (6.4-8.2) Albumin 2.4 g/dL (3.4-5.0) 2.5 g/dL (3.4-5.0) 2.4 g/dL (3.4-5.0) Globulin 3.7 3.9 3.5 Albumin/Globulin Ratio 0.648 0.641 0.685 Assessment/plan:Patient is doing well and is ambulating better. NG tube is to gravity. If he continues to improve, and tolerates, NG tube will be discontinued later today. Once that happens, we will start clear liquids as he tolerates.Once we know he tolerates p.o., and there are no problems, I will pull his DELBERT drains. Patient voices understanding.As long as he remains afebrile, and began to tolerate food, he could likely be discharged within the next 48 hours. Objective Review IO, Exams,& Results Problems Acute/Active Problems: (1) Perforated bowel (2) UTI (urinary tract infection) Vital Signs Date Time Temp Pulse Resp B/P (MAP) Pulse Ox O2 Delivery O2 Flow Rate FiO2 10/19/21 12:25 98.8 64 18 164/85 (111) 97 Room Air* 0 21 Intake and Output 10/19/21 07:00 Output Total 795 ml Balance -795 ml Output Urine Total 400 ml Gastric Drainage Total 70 ml Drainage Total 325 ml # Voids 1 # Bowel Movements 1 Laboratory Tests Test 10/18/21 04:29 10/19/21 04:56 White Blood Count 5.0 10^3/uL 5.4 10^3/uL Red Blood Count 4.12 10^6/uL 3.92 10^6/uL Hemoglobin 14.1 g/dL 13.2 g/dL Hematocrit 41.5 % 39.7 % Mean Corpuscular Volume 100.7 fL 101.3 fL Mean Corpuscular Hemoglobin 34.2 pg 33.7 pg Mean Corpuscular Hemoglobin Concent 34.0 g/dL 33.2 g/dL Red Cell Distribution Width 11.9 % 12.1 % Platelet Count 239 10^3/uL 283 10^3/uL Mean Platelet Volume 9.4 fL 9.2 fL Sodium Level 139 mmol/L 138 mmol/L Potassium Level 3.5 mmol/L 3.6 mmol/L Chloride Level 104.0 mmol/L 103.0 mmol/L Carbon Dioxide Level 24.4 mmol/L 25.7 mmol/L Anion Gap 14.1 12.9 Blood Urea Nitrogen 6 mg/dL 8 mg/dL Creatinine 0.69 mg/dL 0.65 mg/dL Estimated GFR () 136.0 145.7 Est GFR (CKD-EPI)(Non-Afr Moldovan) 112.4 120.4 BUN/Creatinine Ratio 8.0 12.0 Glucose Level 114 mg/dL 97 mg/dL Calcium Level 8.6 mg/dL 8.7 mg/dL Total Bilirubin 0.9 mg/dL 0.9 mg/dL Aspartate Amino Transf (AST/SGOT) 21 U/L 21 U/L Alanine Aminotransferase (ALT/SGPT) 13 U/L 17 U/L Alkaline Phosphatase 57 U/L 54 U/L Total Protein 6.4 g/dL 5.9 g/dL Albumin 2.5 g/dL 2.4 g/dL Globulin 3.9 3.5 Albumin/Globulin Ratio 0.641 0.685 Current Medications Medications (Trade) Dose Ordered Sig/Adali PRN Reason Start Time Stop Time Status Last Admin Bisacodyl (Dulcolax) 10 mg DAILY 10/17/21 09:00 11/16/21 08:59 10/19/21 09:19 Lorazepam (Ativan) 1 mg Q4HR PRN ANXIETY 10/18/21 22:00 11/17/21 21:59 Morphine Sulfate (Morphine Sulfate) 3 mg Q3HR PRN PAIN 7 - 10 10/19/21 11:00 11/18/21 10:59 Piperacillin Sod/ Tazobactam Sod 3.375 gm/Sodium Chloride 100 ml @ 200 mls/hr Q6H 10/17/21 03:00 10/26/21 03:00 10/19/21 14:23 Potassium Cl/ Dextrose/Lact Ringer's 1,000 ml @ 130 mls/hr IV 10/19/21 11:00 11/14/21 16:59 10/19/21 14:23 Promethazine HCl (Phenergan) 25 mg Q4 PRN NAUSEA / VOMITING 10/16/21 23:00 11/15/21 22:59 Orders - DONAVAN CAMARA MD Morphine Sulfate (Morphine Sulfate) (10/19/21 11:00) Potassium Chloride In Lr-D5 (D5lr 1000ml (10/19/21 11:00) Miscellaneous (10/19/21 12:22) Heart: Regular rate, Normal S1, Normal S2 Abdomen: Soft, Other (Distended, tender, bowel sounds hypoactive) Post Operative Incision Status: hypoacttive BS, gen tenderness, Incision and drain sites clean, dry, intact Lungs: Clear to auscultation, Normal air movement Skin: No rashes, No breakdown, No significant lesion DONAVAN CAMARA MD Oct 19, 2021 14:53
--- NOTE | 2021-10-19 16:40 | NUR ---
discontinued ng tube per dr Bustamante, pt may have small sips of clears , no carbonation
[2021-10-19 18:33] VITALS: BP 155/82
[2021-10-19 20:05] VITALS: BP 166/85
[2021-10-20] MEDS: ZOSYN 3.375 GM 3.375 GM in NS 100ML 100 ML IV SCH ×2 (03:13→08:23)
[2021-10-20] MEDS: MORPHINE SULFATE IV PRN (03:33)
[2021-10-20 05:07] VITALS: BP 150/84
[2021-10-20 05:19] LABS: MEAN CORP HGB 34.4 pg (26-34)
[2021-10-20] MEDS: LOVENOX SQ SCH ×2 (05:30→16:57)
[2021-10-20 05:43] LABS: CARBON DIOXIDE 23.3 mmol/L (20.0-32)
[2021-10-20] MEDS: D5LR 1000ML/KCL 20MEQ 1,000 ML IV SCH ×2 (07:09→16:57)
[2021-10-20 07:39] VITALS: BP 163/89
[2021-10-20] MEDS: PROTONIX IV IV SCH (08:23)
[2021-10-20] MEDS: NICOTINE 21MG PATCH TD SCH (08:23)
[2021-10-20] MEDS: DULCOLAX RC SCH (08:23)
[2021-10-20 11:42] VITALS: BP 152/78
--- NOTE | 2021-10-20 12:55 | PRM.PN ---
Subjective Subjective Date: Oct 20, 2021 Time: 11:00 Subjective S: Patient is slowly improving. His NG tube is out and he was on clear liquid diet. He tolerated it. removed this morning which was black and I looked at it. Remaining afebrile. WBC count within normal limit.Abd pain is improving.. Denies any nausea or vomiting. POD#5 after Exploratory laparotomy, lysis of adhesions, drainage of intra- abdominal fluid collections/abscesses, excision of perforation site with primary closure, appendectomy with inversion of the stump, placement of drains x2 in the right upper quadrant overlying the liver and near the hepatic flexure, and a second drain in the left lower quadrant. History of Present Illness Reason for Visit: Abdominal pain History of Present Illness 71-year-old male with history of hypertension, cigarette smoker,? COPD presented emergency room with abdominal pain and distention. Patient had a colonoscopy few days ago at the [facility]. Patient started having abdominal pain and distention. Denies fever or chills.Work-up in the emergency room including CT abdomen pelvis:1. Free fluid and small amount of free air is noted in the abdomen compatible with bowel perforation. Showed signs of bowel perforation with free fluid and air. Surgeon was consulted. Patient is being taken to the OR. Past Medical History Cardiac: HTN Pulmonary: COPD Past Surgical History: No pertinent hx Past Social History Smoke: 1 pack per day Drugs: None VTE VTE Risk Total Score: 4 VTE Risk Score VTE Risk: Score 0-1 = Low Risk (Aggressive mobilization; early ambulation; no VTE prophylaxis required) Score 2: Moderate Risk (Intermittent/Pneumatic Compression Device OR Lovenox/Heparin/Coumadin) Score 3-4: High Risk (Intermittent/Pneumatic Compression Device AND Lovenox/Heparin/Coumadin) Score > or =5: Highest Risk (Intermittent/Pneumatic Compression Device AND Lovenox/Heparin/Coumadin) Antico:Hep/LMWH/Coum/Xarelto: Yes Mechanical device ordered: Yes Review of Systems Constitutional: No: Fever, Chills Gastrointestinal: Nausea, Abdominal Pain, Other (Distention) Allergies: Coded Allergies: No Known Allergies (Unverified , 10/15/21) Objective Vitals and I/O Vital Sign - Last 24 Hours 10/20/21 10/20/21 10/20/21 10/20/21 07:39 07:50 09:03 11:42 Temp 98.5 98.9 Pulse 58 55 Resp 16 16 B/P (MAP) 163/89 (113) 152/78 (102) Pulse Ox 95 95 O2 Delivery Room Air* Room Air Room Air* Room Air* O2 Flow Rate 0 0.00 0 0 FiO2 21 21 21 Intake and Output 10/20/21 07:00 Intake Total 1100 ml Output Total 200 ml Balance 900 ml General: Alert, Oriented X3, Cooperative, No acute distress, mild distress HEENT: Atraumatic, PERRLA, EOMI, Mucous membr. moist/pink Neck: Supple, No JVD Lungs: Clear to auscultation, Normal air movement Heart: Regular rate, Normal S1, Normal S2 Abdomen: Normal bowel sounds, Soft, Other (Distended, tender, bowel sounds present) Extremities: No clubbing, No cyanosis, No edema Skin: No rashes, No breakdown, No significant lesion Neuro: Normal gait, Normal speech, Strength at 5/5 X4 ext, Normal tone, Sensation intact Psych/Mental Status: Mental status NL, Mood NL All Results(Lab/Rad) Laboratory Tests Test 10/15/21 15:50 10/16/21 04:55 10/16/21 06:08 Pro-B-Type Natriuretic Peptide 350 pg/mL White Blood Count 6.6 10^3/uL Red Blood Count 4.11 10^6/uL Hemoglobin 13.9 g/dL Hematocrit 42.2 % Mean Corpuscular Volume 102.7 fL Mean Corpuscular Hemoglobin 33.8 pg Mean Corpuscular Hemoglobin Concent 32.9 g/dL Red Cell Distribution Width 12.4 % Platelet Count 186 10^3/uL Mean Platelet Volume 10.1 fL Neutrophils (%) (Auto) 83.9 % Lymphocytes (%) (Auto) 6.2 % Monocytes (%) (Auto) 9.4 % Neutrophils # (Auto) 5.6 10^3/uL Lymphocytes # (Auto) 0.41 10^3/uL1 Monocytes # (Auto) 0.6 10^3/uL Absolute Immature Granulocyte (auto 0.02 10^3 u/L Absolute Eosinophils (auto) 0.0 10^3/uL Immature Granulocytes % 0.30 % Eosinophils % 0.0 % Basophils % 0.2 % Basophils # 0.0 10^3/uL Sodium Level 137 mmol/L Potassium Level 3.3 mmol/L Chloride Level 99.0 mmol/L Carbon Dioxide Level 29.3 mmol/L Anion Gap 12.0 Blood Urea Nitrogen 8 mg/dL Creatinine 0.74 mg/dL Estimated GFR () 125.5 Est GFR (CKD-EPI)(Non-Afr Liberian) 103.7 BUN/Creatinine Ratio 10.0 Glucose Level 172 mg/dL Calcium Level 8.5 mg/dL Total Bilirubin 0.9 mg/dL Aspartate Amino Transf (AST/SGOT) 28 U/L Alanine Aminotransferase (ALT/SGPT) 21 U/L Alkaline Phosphatase 50 U/L Total Protein 5.9 g/dL Albumin 2.4 g/dL Globulin 3.5 Albumin/Globulin Ratio 0.685 Segmented Neutrophils 89 % Lymphocytes 5 % Monocytes 6 % Platelet Estimate ADEQUATE Platelet Morphology NORMAL Current Medications Medications (Trade) Dose Ordered Sig/Adali Route PRN Reason Start Time Stop Time Status Last Admin Dose Admin Sodium Chloride 1,000 ml @ 1,200 mls/hr Q50M STAT IV 10/15/21 09:12 10/15/21 13:03 DC 10/15/21 09:24 Ondansetron HCl (Zofran) 4 mg STAT STAT IV 10/15/21 09:12 10/15/21 13:03 DC 10/15/21 09:24 Morphine Sulfate (Morphine Sulfate) 4 mg STAT STAT IV 10/15/21 09:12 10/15/21 13:04 DC 10/15/21 09:24 Potassium Chloride/Sodium Chloride 1,000 ml @ 100 mls/hr Q10H STAT IV 10/15/21 10:32 10/15/21 16:42 DC 10/15/21 10:53 Piperacillin Sod/ Tazobactam Sod 3.375 gm/Sodium Chloride 100 ml @ 200 mls/hr STAT STAT IV 10/15/21 10:32 10/15/21 11:01 DC 10/15/21 10:52 Sodium Chloride 100 ml @ ud STK-MED ONCE IV 10/15/21 10:42 10/15/21 10:42 DC Potassium Chloride/Sodium Chloride 1,000 ml @ ud STK-MED ONCE .ROUTE 10/15/21 10:42 10/15/21 10:42 DC Piperacillin Sod/ Tazobactam Sod 3.375 gm/Sodium Chloride 100 ml @ 200 mls/hr Q6H IV 10/15/21 18:00 10/15/21 20:50 DC Pantoprazole Sodium (Protonix Iv) 40 mg DAILY IV 10/16/21 09:00 10/15/21 20:49 DC Potassium Cl/ Dextrose/Lact Ringer's 1,000 ml @ 100 mls/hr Q10H IV 10/15/21 12:00 10/15/21 20:49 DC Lidocaine HCl (Xylocaine 2% 5ml Vial) 500 mg STK-MED ONCE .ROUTE 10/15/21 12:32 10/15/21 12:33 DC Propofol (Diprivan) 200 mg STK-MED ONCE IV 10/15/21 12:33 10/15/21 12:33 DC Rocuronium [place] (Zemuron) 100 mg STK-MED ONCE IV 10/15/21 12:33 10/15/21 12:33 DC Hydromorphone HCl (Dilaudid) 2 mg STK-MED ONCE .ROUTE 10/15/21 12:34 10/15/21 12:34 DC Fentanyl Citrate (Sublimaze) 50 mcg STK-MED ONCE .ROUTE 10/15/21 12:34 10/15/21 12:34 DC Bupivacaine HCl (Sensorcaine-Mpf 0.25% Vial) 2.5 mg STK-MED ONCE .ROUTE 10/15/21 12:36 10/15/21 12:37 DC Sodium Chloride (Sodium Chloride Irr Bottle) 1,000 ml STK-MED ONCE IR 10/15/21 12:41 10/15/21 12:42 DC Sterile Water (Water) 1,000 ml STK-MED ONCE .ROUTE 10/15/21 12:41 10/15/21 12:42 DC Morphine Sulfate (Morphine Sulfate) 4 mg STAT STAT IV 10/15/21 09:12 10/15/21 13:04 DC Sodium Chloride 100 ml @ ud STK-MED ONCE IV 10/15/21 13:10 10/15/21 13:10 DC Lidocaine/ Epinephrine (Xylocaine 1%-Epi 1:100,000) 30 ml STK-MED ONCE .ROUTE 10/15/21 13:14 10/15/21 13:15 DC Bupivacaine HCl (Marcaine 0.5%) 1 ml STK-MED ONCE .ROUTE 10/15/21 13:15 10/15/21 13:15 DC Bupivacaine HCl (Marcaine 0.5%) 1 ml STK-MED ONCE .ROUTE 10/15/21 13:16 10/15/21 13:17 DC Acetaminophen 100 ml @ ud STK-MED ONCE IV 10/15/21 13:26 10/15/21 13:26 DC Piperacillin Sod/ Tazobactam Sod 3.375 gm/Sodium Chloride 100 ml @ 200 mls/hr Q6H IV 10/15/21 14:00 10/15/21 15:17 DC 10/15/21 13:15 Promethazine HCl (Phenergan) 12.5 mg Q4HR IV 10/15/21 16:00 11/14/21 15:59 10/15/21 20:35 Pantoprazole Sodium (Protonix Iv) 40 mg DAILY IV 10/16/21 09:00 11/15/21 08:59 10/16/21 09:29 Simethicone (Genasyme) 80 mg Q4 PRN PO GAS/BLOATING 10/15/21 15:00 11/14/21 14:59 Enoxaparin Sodium (Lovenox) 30 mg BID@06,18 SQ 10/15/21 18:00 11/14/21 17:59 10/16/21 05:33 Potassium Chloride/Dextrose/ Sod Cl 1,000 ml @ 140 mls/hr DAILY24 IV 10/15/21 15:00 10/15/21 16:42 DC Piperacillin Sod/ Tazobactam Sod 3.375 gm/Sodium Chloride 100 ml @ 200 mls/hr Q6H IV 10/15/21 19:00 10/25/21 18:59 10/16/21 13:52 Hydromorphone HCl (Dilaudid) 2 mg STK-MED ONCE .ROUTE 10/15/21 15:28 10/15/21 15:28 DC Hydromorphone HCl (Dilaudid) 0.5 mg OT ONCE IV 10/15/21 15:30 10/15/21 20:49 DC 10/15/21 15:32 Hydromorphone HCl (Dilaudid) 0.5 mg OT ONCE IV 10/15/21 15:40 10/15/21 20:49 DC 10/15/21 15:44 Potassium Cl/ Dextrose/Lact Ringer's 1,000 ml @ 130 mls/hr Q7H42M IV 10/15/21 17:00 11/14/21 16:59 10/16/21 01:58 Morphine Sulfate (Morphine Sulfate) 1 mg Q3HR PRN IV PAIN 4 - 6 10/15/21 18:00 11/14/21 17:59 10/16/21 01:57 Morphine Sulfate (Morphine Sulfate) 3 mg Q3HR PRN IV PAIN 7 - 10 10/15/21 18:00 11/14/21 17:59 10/16/21 04:43 Nicotine (Nicotine 21mg Patch) 1 each DAILY TD 10/15/21 21:00 11/14/21 20:59 10/16/21 09:29 Sodium Chloride 25 ml @ ud STK-MED ONCE IV 10/15/21 19:13 10/15/21 19:14 DC Sodium Chloride 100 ml @ ud STK-MED ONCE IV 10/15/21 19:18 10/15/21 19:19 DC Ondansetron HCl (Zofran) 4 mg Q4H PRN IV NAUSEA / VOMITING 10/16/21 01:00 11/15/21 00:59 10/16/21 01:57 Sodium Chloride 100 ml @ ud STK-MED ONCE IV 10/16/21 01:47 10/16/21 01:47 DC Potassium Chloride 200 ml @ 50 mls/hr OT ONCE IV 10/16/21 08:30 10/16/21 12:29 DC 10/16/21 10:15 Sodium Chloride 500 ml @ ud STK-MED ONCE IV 10/16/21 09:57 10/16/21 09:57 DC Sterile Water (Water) 1,000 ml STK-MED ONCE .ROUTE 10/16/21 11:30 10/16/21 11:30 DC Course Sepsis Screening Results: Posi: NEGATIVE Sepsis Qualifier/Stage: NO DEFINITE RISK Duration or Total Time Spent w: 60 min Vitals & review Data Vital Sign - Last 24 Hours 10/15/21 10/15/21 10/15/21 10/15/21 14:52 14:52 15:02 15:12 Temp 97.1 Pulse 100 100 103 Resp 16 16 16 B/P (MAP) 154/84 (107) 146/100 (115) 153/83 (106) Pulse Ox 100 100 97 O2 Delivery Non-Rebreather Non-Rebreather Non-Rebreather O2 Flow Rate 15.00 15.00 15.00 15.00 10/15/21 10/15/21 10/15/21 10/15/21 15:22 15:32 15:42 15:52 Pulse 103 98 92 Resp 16 16 16 B/P (MAP) 153/83 (106) 158/90 (112) 148/87 (107) Pulse Ox 97 97 97 O2 Delivery Non-Rebreather Nasal Canula Nasal Canula O2 Flow Rate 15.00 3.00 3.00 3.00 10/15/21 10/15/21 10/15/21 10/15/21 15:52 15:59 16:00 16:44 Temp 98.4 97.8 Pulse 81 77 91 Resp 16 21 18 B/P (MAP) 144/83 (103) 144/75 (98) 133/82 (99) Pulse Ox 96 92 96 O2 Delivery Nasal [place] Nasal Cannula* Nasal Cannula* Nasal Cannula O2 Flow Rate 3.00 3 3 3.00 FiO2 32 32 10/15/21 10/15/21 10/15/21 10/15/21 17:00 17:19 17:27 18:00 Pulse 65 62 Resp 20 16 18 B/P (MAP) 122/85 (97) 124/86 (99) Pulse Ox 97 98 97 O2 Delivery Nasal Cannula* Nasal Cannula* Nasal Cannula* O2 Flow Rate 3 2 3 FiO2 32 28 32 10/15/21 10/15/21 10/15/21 10/15/21 18:15 18:30 18:31 18:45 Pulse 62 61 60 61 Resp 20 16 18 22 B/P (MAP) 115/61 (79) Pulse Ox 99 97 99 99 O2 Delivery Nasal Cannula* Nasal Cannula* Nasal Cannula* Nasal Cannula* O2 Flow Rate 3 3 3 3 FiO2 32 32 32 32 10/15/21 10/15/21 10/15/21 10/15/21 19:00 19:02 19:15 19:30 Pulse 63 65 63 64 Resp 20 21 21 12 B/P (MAP) 138/75 (96) Pulse Ox 99 99 100 100 O2 Delivery Nasal Cannula* Nasal Cannula* Nasal Cannula* Nasal Cannula* O2 Flow Rate 3 3 3 3 FiO2 32 32 32 32 8/2710/15/21 10/15/21 10/15/21 19:45 20:00 20:00 20:15 Temp 98.1 Pulse 61 62 63 Resp 17 18 12 B/P (MAP) 134/71 (92) Pulse Ox 98 99 99 O2 Delivery Nasal Cannula* Nasal Cannula Nasal Cannula* Nasal Cannula* O2 Flow Rate 3 2.00 3 3 FiO2 32 32 32 10/15/21 10/15/21 10/15/21 10/15/21 20:30 20:45 21:00 21:15 Pulse 60 61 60 59 Resp 15 16 18 14 B/P (MAP) 130/72 (91) 132/75 (94) Pulse Ox 100 100 100 100 O2 Delivery Nasal Cannula* Nasal Cannula* Nasal Cannula* Nasal Cannula* O2 Flow Rate 3 3 3 3 FiO2 32 32 32 32 10/15/21 10/15/21 10/15/21 10/15/21 21:30 21:31 21:45 22:00 Pulse 62 60 61 62 Resp 20 11 12 12 B/P (MAP) 136/76 (96) 135/68 (90) Pulse Ox 100 100 100 100 O2 Delivery Nasal Cannula* Nasal Cannula* Nasal Cannula* Nasal Cannula* O2 Flow Rate 3 3 3 3 FiO2 32 32 32 32 10/15/21 10/15/21 10/15/21 10/15/21 22:15 22:30 22:45 23:00 Pulse 63 60 62 61 Resp 17 13 16 14 B/P (MAP) 137/63 (87) 138/73 (94) Pulse Ox 100 100 100 100 O2 Delivery Nasal Cannula* Nasal Cannula* Nasal Cannula* Nasal Cannula* O2 Flow Rate 3 3 3 3 FiO2 32 32 32 32 10/15/21 10/15/21 10/15/21 10/15/21 23:15 23:25 23:30 23:31 Pulse 61 62 61 61 Resp 10 18 14 10 B/P (MAP) 144/70 (94) Pulse Ox 100 99 100 100 O2 Delivery Nasal Cannula* Nasal Cannula* Nasal Cannula* Nasal Cannula* O2 Flow Rate 3 2 3 3 FiO2 32 28 32 32 10/15/21 10/16/21 10/16/21 10/16/21 23:45 00:00 00:00 00:15 Temp 98.1 Pulse 61 60 64 Resp 11 13 12 B/P (MAP) 140/68 (92) Pulse Ox 100 100 100 O2 Delivery Nasal Cannula* Nasal Cannula Nasal Cannula* Nasal Cannula* O2 Flow Rate 3 2.00 3 3 FiO2 32 32 32 10/16/21 10/16/21 10/16/21 10/16/21 00:30 00:32 00:45 01:00 Pulse 63 63 65 65 Resp 16 12 12 12 B/P (MAP) 142/67 (92) Pulse Ox 100 99 100 100 O2 Delivery Nasal Cannula* Nasal Cannula* Nasal Cannula* Nasal Cannula* O2 Flow Rate 3 3 3 3 FiO2 32 32 32 32 10/16/21 10/16/21 10/16/21 10/16/21 01:01 01:15 01:30 01:45 Pulse 64 63 67 67 Resp 12 12 16 14 B/P (MAP) 144/68 (93) 140/74 (96) Pulse Ox 100 100 100 100 O2 Delivery Nasal Cannula* Nasal Cannula* Nasal Cannula* Nasal Cannula* O2 Flow Rate 3 3 3 3 FiO2 32 32 32 32 10/16/21 10/16/21 10/16/21 10/16/21 02:00 02:15 02:30 02:45 Pulse 65 67 70 66 Resp 13 14 10 10 B/P (MAP) 147/74 (98) 142/72 (95) Pulse Ox 100 100 100 100 O2 Delivery Nasal Cannula* Nasal Cannula* Nasal Cannula* Nasal Cannula* O2 Flow Rate 3 3 3 3 FiO2 32 32 32 32 10/16/21 10/16/21 10/16/21 10/16/21 03:00 03:15 03:30 03:45 Pulse 68 69 70 71 Resp B/P (MAP) 152/71 (98) 156/71 (99) Pulse Ox 100 100 100 100 O2 Delivery Nasal Cannula* Nasal Cannula* Nasal Cannula* Nasal Cannula* O2 Flow Rate 3 3 2 2 FiO2 32 32 28 28 10/16/21 10/16/21 10/16/21 10/16/21 04:00 04:15 04:30 04:45 Temp 98.2 Pulse 70 67 70 71 Resp 15 11 15 13 B/P (MAP) 152/71 (98) 152/72 (98) Pulse Ox 100 100 100 100 O2 Delivery Nasal Cannula* Nasal Cannula* Nasal Cannula* Nasal Cannula* O2 Flow Rate 2 2 2 2 FiO2 28 28 28 28 10/16/21 10/16/21 10/16/21 8/28/22 05:00 05:15 05:30 05:32 Pulse 72 67 66 66 Resp 15 12 12 13 B/P (MAP) 150/73 (98) Pulse Ox 100 100 100 100 O2 Delivery Nasal Cannula* Nasal Cannula* Nasal Cannula* Nasal Cannula* O2 Flow Rate 2 2 2 2 FiO2 28 10/16/21 10/16/21 10/16/21 10/16/21 05:41 05:45 05:48 06:00 Pulse 67 72 70 Resp 14 19 13 B/P (MAP) 142/68 (92) 149/59 (89) Pulse Ox 100 100 100 O2 Delivery Nasal Cannula* Nasal Cannula* Nasal Cannula Nasal Cannula* O2 Flow Rate 2 2 2.00 2 FiO2 10/16/21 10/16/21 10/16/21 10/16/21 06:45 07:00 07:15 07:30 Pulse 66 66 67 66 Resp 13 6 11 13 B/P (MAP) 151/68 (95) 149/64 (92) Pulse Ox 100 100 100 100 O2 Delivery Nasal Cannula* Nasal Cannula* Nasal Cannula* Nasal Cannula* O2 Flow Rate 2 2 2 2 FiO2 28 10/16/21 10/16/21 10/16/21 10/16/21 07:45 08:00 08:00 08:15 Pulse 65 65 67 Resp 9 17 B/P (MAP) 145/70 (95) Pulse Ox 100 100 100 O2 Delivery Nasal Cannula* Nasal Cannula* Nasal Cannula Nasal Cannula* O2 Flow Rate 2 2 2.00 2 FiO2 10/16/21 10/16/21 10/16/21 10/16/21 08:28 08:31 08:45 09:00 Temp 97.9 Pulse 62 66 65 68 Resp 18 14 16 5 B/P (MAP) 154/73 (100) 164/73 (103) Pulse Ox 98 97 99 98 O2 Delivery Nasal Cannula* Nasal Cannula* Nasal Cannula* Nasal Cannula* O2 Flow Rate 1 2 2 2 FiO2 24 10/16/21 10/16/21 10/16/21 10/16/21 09:15 09:30 09:45 10:00 Pulse 66 65 66 70 Resp 9 13 14 14 B/P (MAP) 161/77 (105) 148/72 (97) Pulse Ox 99 97 99 98 O2 Delivery Nasal Cannula* Nasal Cannula* Nasal Cannula* Nasal Cannula* O2 Flow Rate 2 2 2 2 FiO2 28 28 28 28 10/16/21 10/16/21 10/16/21 10:15 10:31 12:33 Pulse 68 69 Resp 13 20 B/P (MAP) 157/64 (95) Pulse Ox 97 97 O2 Delivery Nasal Cannula* Nasal Cannula* Nasal Cannula O2 Flow Rate 2 2 2.00 FiO2 28 28 Intake and Output 10/16/21 07:00 Intake Total 4200 ml Output Total 2610 ml Balance 1590 ml Laboratory Tests Test 10/15/21 09:01 10/15/21 09:12 10/15/21 09:27 10/15/21 15:50 White Blood Count 8.2 10^3/uL Red Blood Count 4.56 10^6/uL Hemoglobin 15.6 g/dL Hematocrit 46.6 % Mean Corpuscular Volume 102.2 fL Mean Corpuscular Hemoglobin 34.2 pg Mean Corpuscular Hemoglobin Concent 33.5 g/dL Red Cell Distribution Width 12.5 % Platelet Count 200 10^3/uL Mean Platelet Volume 9.6 fL Neutrophils (%) (Auto) 83.2 % Lymphocytes (%) (Auto) 8.0 % Monocytes (%) (Auto) 8.0 % Neutrophils # (Auto) 6.8 10^3/uL Lymphocytes # (Auto) 0.66 10^3/uL1 Monocytes # (Auto) 0.7 10^3/uL Absolute Immature Granulocyte (auto 0.03 10^3 u/L Absolute Eosinophils (auto) 0.0 10^3/uL Immature Granulocytes % 0.40 % Eosinophils % 0.2 % Basophils % 0.2 % Basophils # 0.0 10^3/uL Prothrombin Time 9.1 SEC Prothrombin Time INR (Non-Therap) 0.9 Activated Partial Thromboplast Time 27.1 SEC Sodium Level 134 mmol/L Potassium Level 3.7 mmol/L Chloride Level 93.0 mmol/L Carbon Dioxide Level 28.4 mmol/L Anion Gap 16.3 Blood Urea Nitrogen 14 mg/dL Creatinine 0.85 mg/dL Estimated GFR () 106.9 Est GFR (CKD-EPI)(Non-Afr [place]) 88.4 BUN/Creatinine Ratio 16.0 Glucose Level 106 mg/dL Calcium Level 10.1 mg/dL Total Bilirubin 1.5 mg/dL Aspartate Amino Transf (AST/SGOT) 28 U/L Alanine Aminotransferase (ALT/SGPT) 27 U/L Alkaline Phosphatase 84 U/L Total Protein 8.1 g/dL Albumin 3.4 g/dL Globulin 4.7 Albumin/Globulin Ratio 0.723 Lipase 24 U/L Urine Collection Type UNKNOWN Urine Color FORD Urine Appearance CLEAR Urine Bilirubin 2+ Urine Ictotest POSITIVE Urine Ketones TRACE Urine Specific [place] 1.010 Urine pH 6.0 Urine Protein 1+ Urine Urobilinogen 4.0 E.U./dL Urine Nitrate POSITIVE Urine Leukocyte Esterase NEGATIVE Urine Glucose (Auto)(UA) NEGATIVE Urine Ketones (Manual) NEGATIVE Urine Blood NEGATIVE Urine RBC 0-2 RBC/HPF Urine WBC 0-2 WBC/HPF Urine Squamous Epithelial Cells FEW Urine Calcium Oxalate Crystals FEW Urine Bacteria FEW Lactic Acid Level 1.4 mmol/L Pro-B-Type Natriuretic Peptide 350 pg/mL Test 10/16/21 04:55 10/16/21 06:08 White Blood Count 6.6 10^3/uL Red Blood Count 4.11 10^6/uL Hemoglobin 13.9 g/dL Hematocrit 42.2 % Mean Corpuscular Volume 102.7 fL Mean Corpuscular Hemoglobin 33.8 pg Mean Corpuscular Hemoglobin Concent 32.9 g/dL Red Cell Distribution Width 12.4 % Platelet Count 186 10^3/uL Mean Platelet Volume 10.1 fL Neutrophils (%) (Auto) 83.9 % Lymphocytes (%) (Auto) 6.2 % Monocytes (%) (Auto) 9.4 % Neutrophils # (Auto) 5.6 10^3/uL Lymphocytes # (Auto) 0.41 10^3/uL1 Monocytes # (Auto) 0.6 10^3/uL Absolute Immature Granulocyte (auto 0.02 10^3 u/L Absolute Eosinophils (auto) 0.0 10^3/uL Immature Granulocytes % 0.30 % Eosinophils % 0.0 % Basophils % 0.2 % Basophils # 0.0 10^3/uL Sodium Level 137 mmol/L Potassium Level 3.3 mmol/L Chloride Level 99.0 mmol/L Carbon Dioxide Level 29.3 mmol/L Anion Gap 12.0 Blood Urea Nitrogen 8 mg/dL Creatinine 0.74 mg/dL Estimated GFR () 125.5 Est GFR (CKD-EPI)(Non-Afr [place]ian) 103.7 BUN/Creatinine Ratio 10.0 Glucose Level 172 mg/dL Calcium Level 8.5 mg/dL Total Bilirubin 0.9 mg/dL Aspartate Amino Transf (AST/SGOT) 28 U/L Alanine Aminotransferase (ALT/SGPT) 21 U/L Alkaline Phosphatase 50 U/L Total Protein 5.9 g/dL Albumin 2.4 g/dL Globulin 3.5 Albumin/Globulin Ratio 0.685 Segmented Neutrophils 89 % Lymphocytes 5 % Monocytes 6 % Platelet Estimate ADEQUATE Platelet Morphology NORMAL Current Medications Medications (Trade) Dose Ordered Sig/Adali PRN Reason Start Time Stop Time Status Last Admin Enoxaparin Sodium (Lovenox) 30 mg BID@06,18 10/15/21 18:00 11/14/21 17:59 10/16/21 05:33 Morphine Sulfate (Morphine Sulfate) 1 mg Q3HR PRN PAIN 4 - 6 10/15/21 18:00 11/14/21 17:59 10/16/21 01:57 Morphine Sulfate (Morphine Sulfate) 3 mg Q3HR PRN PAIN 7 - 10 10/15/21 18:00 11/14/21 17:59 10/16/21 04:43 Nicotine (Nicotine 21mg Patch) 1 each DAILY 10/15/21 21:00 11/14/21 20:59 10/16/21 09:29 Ondansetron HCl (Zofran) 4 mg Q4H PRN NAUSEA / VOMITING 10/16/21 01:00 11/15/21 00:59 10/16/21 01:57 Pantoprazole Sodium (Protonix Iv) 40 mg DAILY 10/16/21 09:00 11/15/21 08:59 10/16/21 09:29 Piperacillin Sod/ Tazobactam Sod 3.375 gm/Sodium Chloride 100 ml @ 200 mls/hr Q6H 10/15/21 19:00 10/25/21 18:59 10/16/21 13:52 Potassium Cl/ Dextrose/Lact Ringer's 1,000 ml @ 130 mls/hr Q7H42M 10/15/21 17:00 11/14/21 16:59 10/16/21 01:58 Promethazine HCl (Phenergan) 12.5 mg Q4HR 10/15/21 16:00 9/26/22 15:59 10/15/21 20:35 Simethicone (Genasyme) 80 mg Q4 PRN GAS/BLOATING 10/15/21 15:00 11/14/21 14:59 LEVEL 1 SEPSIS INFECTION CRITE: ABX Therapy, Recent Invasive Procedure LEVEL 2-SIRS (LIST ALL THAT AP: None/Not assessed Cardiovascular Evidence: Not Assessed or None Hematologic Evidence: None/Not assessed Hepatic Evidence: None/Not assessed Metabolic Evidence: None/Not assessed Neurological Evidence: None/Not assessed Respiratory Evidence: None/Not assessed Renal Evidence: None/Not assessed O2 Sat by Pulse Oximetry: 95 Oxygen Flow Rate: 0.00 Assessment/Plan Assessment/Plan Assessment/Plan Problems: (1) Perforated bowel Status: Acute ICD Code: K63.1 - Perforation of intestine (nontraumatic) POD#4 exp lap. Improving..Discussed with Dr. Bustamante. She wanted to discontinue Zosyn and switch to Augmentin 875 p.o. twice daily. Diet was advanced today from clear liquid to full liquid diet. (2) Cigarette smoker Status: Chronic ICD Code: F17.210 - Nicotine dependence, cigarettes, uncomplicated Declines patch. (3) Hypertension Status: Chronic ICD Code: I10 - Essential (primary) hypertension Continue monitoring bp. No med. (4) COPD (chronic obstructive pulmonary disease) Status: Chronic ICD Code: J44.9 - Chronic obstructive pulmonary disease, unspecified Stable, not in exacerbation. #5-Mild hypokalemiapotassium chloride IV 20 M EQ one-time today. We will repeat CMP in the morning. We will keep potassium more than 4. GI prophylaxis pantoprazole DVT prophylaxis SCDs and lovenox. Expect length of stay more than 1 midnight SHARON WELSH MD Oct 20, 2021 12:55
--- NOTE | 2021-10-20 14:45 | PRM.PN ---
VTE VTE Risk Total Score: 4 VTE Risk Score VTE Risk: Score 0-1 = Low Risk (Aggressive mobilization; early ambulation; no VTE prophylaxis required) Score 2: Moderate Risk (Intermittent/Pneumatic Compression Device OR Lovenox/Heparin/Coumadin) Score 3-4: High Risk (Intermittent/Pneumatic Compression Device AND Lovenox/Heparin/Coumadin) Score > or =5: Highest Risk (Intermittent/Pneumatic Compression Device AND Lovenox/Heparin/Coumadin) Antico:Hep/LMWH/Coum/Xarelto: Yes Mechanical device ordered: Yes Progress Note Post-OP Subjective Date: Oct 19, 2021 Time: 14:15 Pre-Operative DX: perforated viscus/colon s/p colonoscopy, UTI Post-OP DX: perforated necrotic transverse colon near hepatic flexure Physician Notes: Patient having spontaneous BM now. No nausea or vomiting. Urinating without difficulty. Tolerating full diet without problems. AFVSS Lab stable. Heart is RRR. Lungs are CTA bilaterally. Abdomen is soft, nontender, nondistended. Incision and drain sites are clean, dry, and intact. Drains removed without difficulty. Extremities with food ROM and pulses. Patient doing well. Advance diet, increase activity, continue antibiotics but change to PO. Possible discharge tomorrow if no fevers and tolerates diet. Objective Review IO, Exams,& Results Problems Acute/Active Problems: (1) Perforated bowel (2) UTI (urinary tract infection) Vital Signs Date Time Temp Pulse Resp B/P (MAP) Pulse Ox O2 Delivery O2 Flow Rate FiO2 10/20/21 11:42 98.9 55 16 152/78 (102) 95 Room Air* 0 21 Intake and Output 10/20/21 07:00 Intake Total 1100 ml Output Total 200 ml Balance 900 ml IV Total 1100 ml Drainage Total 200 ml # Voids 2 Laboratory Tests Test 10/19/21 04:56 10/20/21 04:36 White Blood Count 5.4 10^3/uL 4.8 10^3/uL Red Blood Count 3.92 10^6/uL 3.60 10^6/uL Hemoglobin 13.2 g/dL 12.4 g/dL Hematocrit 39.7 % 36.2 % Mean Corpuscular Volume 101.3 fL 100.6 fL Mean Corpuscular Hemoglobin 33.7 pg 34.4 pg Mean Corpuscular Hemoglobin Concent 33.2 g/dL 34.3 g/dL Red Cell Distribution Width 12.1 % 12.0 % Platelet Count 283 10^3/uL 326 10^3/uL Mean Platelet Volume 9.2 fL 9.3 fL Sodium Level 138 mmol/L 137 mmol/L Potassium Level 3.6 mmol/L 3.4 mmol/L Chloride Level 103.0 mmol/L 104.0 mmol/L Carbon Dioxide Level 25.7 mmol/L 23.3 mmol/L Anion Gap 12.9 13.1 Blood Urea Nitrogen 8 mg/dL 7 mg/dL Creatinine 0.65 mg/dL 0.76 mg/dL Estimated GFR () 145.7 121.6 Est GFR (CKD-EPI)(Non-Afr Afghan) 120.4 100.5 BUN/Creatinine Ratio 12.0 9.0 Glucose Level 97 mg/dL 109 mg/dL Calcium Level 8.7 mg/dL 8.4 mg/dL Total Bilirubin 0.9 mg/dL 0.9 mg/dL Aspartate Amino Transf (AST/SGOT) 21 U/L 21 U/L Alanine Aminotransferase (ALT/SGPT) 17 U/L 20 U/L Alkaline Phosphatase 54 U/L 50 U/L Total Protein 5.9 g/dL 5.4 g/dL Albumin 2.4 g/dL 2.2 g/dL Globulin 3.5 3.2 Albumin/Globulin Ratio 0.685 0.687 Current Medications Medications (Trade) Dose Ordered Sig/Adali PRN Reason Start Time Stop Time Status Last Admin Amoxicillin/ Clavulanate Potassium (Augmentin 875mg) 1 each BID 10/20/21 21:00 10/27/21 09:00 Lorazepam (Ativan) 1 mg Q4HR PRN ANXIETY 10/18/21 22:00 11/17/21 21:59 Morphine Sulfate (Morphine Sulfate) 3 mg Q3HR PRN PAIN 7 - 10 10/19/21 11:00 11/18/21 10:59 Potassium Cl/ Dextrose/Lact Ringer's 1,000 ml @ 130 mls/hr IV 10/19/21 11:00 11/14/21 16:59 10/20/21 07:09 Philippe - DONAVAN CAMARA MD Morphine Sulfate (Morphine Sulfate) (10/19/21 11:00) Potassium Chloride In Lr-D5 (D5lr 1000ml (10/19/21 11:00) Miscellaneous (10/19/21 12:22) Miscellaneous (10/19/21 16:32) Full Liquid Diet (10/20/21 Lunch) Heart: Regular rate, Normal S1, Normal S2 Abdomen: Normal bowel sounds, Soft, Other (Distended, tender, bowel sounds present) Post Operative Incision Status: hypoacttive BS, gen tenderness, Incision and drain sites clean, dry, intact Lungs: Clear to auscultation, Normal air movement Skin: No rashes, No breakdown, No significant lesion DONAVAN CAMARA MD Oct 20, 2021 14:45
[2021-10-20 16:31] VITALS: BP 167/83
--- NOTE | 2021-10-20 18:54 | DIET.OP ---
Nutrition Asmt/Malnutrit 2-17 Actual Date of Review: Oct 20, 2021 Actual Time Reviewed Asmt: 18:45 Nutritional Screening: Malnutr/Diet Consult Diagnosis: Perforated Bowel Pertinent Medical Hx/Surgical: HTN, COPD, Colonscopy few days ago, surgery 10/15 to close perforation. Subjective Information: 71 yo m, 1 pack day smoker, presented with N/A. abdominal pain, discmfort and distention. Diet advanced to full liquid, no N/V tolerating well. 5# increase since admission, 4%, significant Current Diet Order/Nutrition S: Full Liquid Patient /S.O: Not Indicated Pertinent Meds Protonix, Zofran, Phenergan, Lovenox Pertinent Labs Hgb `2.4L, Hct 26.2L, Na+ 137, K+ 3.4L, BUN 7, Cr .76, Glu 109, Ca+ 8.4 Height (Inches): 68 Current Weight: 126 %IBW: 92 Recent Weight Change: Yes (5# increase since admission, 4%, signiigcant) Weight Status: Appropriate GI Symptoms: [place], None Food Allergies: No (NKFA) Cultural/Ethnic/Jainism Valarie: unknown Usual Diet at Home: unable to obtain Skin Integrity/Comment: No (surgical incision and drainage) Current %PO: Good(75-100%) BEE in Kcals: Use Current Weight Calories/Kcals/K-35 Kcals Calculated: 6870-9145 Protein: Use Current Weight Protein g/k.2-1.5 Protein Calculated: 83-110 Fluid: ml: 3237-8730 (25-30) or per MD order Nutritional Problem: No Cur. 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 Expected Outcomes stable with adequate hydration, tolerance of advancing diet, skin integrity/wound healing, labs WNL, nutrition needs met within 3 days. Normal Weight %: 90%-110% (Normal) BMI%: 19-24 (Normal) Serum Albumin g/dl: 2.4-3.0 Moderate) Malnutrtion/Nutrition Risk Edu: No risk status changed to low nutrition risk, from moderate RD Follow-Up Date: Oct 23, 2021 Notificiation Needed?: No NU ECHOLS Oct 20, 2021 18:54
[2021-10-20 20:00] VITALS: BP 163/84
[2021-10-20] MEDS: AUGMENTIN 875MG PO SCH (21:03)
[2021-10-21 01:08] VITALS: BP 150/75
[2021-10-21] MEDS: D5LR 1000ML/KCL 20MEQ 1,000 ML IV SCH (02:47)
[2021-10-21 05:40] VITALS: BP 156/81
[2021-10-21] MEDS: LOVENOX SQ SCH (06:06)
[2021-10-21 08:00] VITALS: BP 135/76
[2021-10-21] MEDS: PROTONIX IV IV SCH (08:18)
[2021-10-21] MEDS: NICOTINE 21MG PATCH TD SCH (08:18)
[2021-10-21] MEDS: AUGMENTIN 875MG PO SCH (08:20)
[2021-10-21] MEDS: DULCOLAX RC SCH (09:00)
--- NOTE | 2021-10-21 09:25 | PRM.DC ---
DISCHARGE SUMMARY Y Date of Admission: 10/16/2021 Date of Discharge: FINAL DIAGNOSES: Perforated colon following colonoscopy Disposition: Home Condition: Fair Diet: Advance as tolerated from soft Activity: ad lilliana HOSPITAL COURSE: Patient is a 71-year-old gentleman, past medical history of hypertension and COPD. Presented to the ER with complaint of increasing abdominal pain and distention and decreased appetite. Patient reported having a colonoscopy at the [place], 3 days prior. In the ER, per imaging patient found to have free fluid and small free air in the abdomen compatible with bowel perforation. Patient was admitted started on antibiotics, Dr. Bustamante, general surgeon, was consulted and took patient to the OR for exploratory laparotomy. During surgery patient had ex lap, lysis of adhesions, drainage of intra-abdominal fluid collection and abscess. Excision at perforation site with a primary closure, appendectomy with eversion of stump and initial placement of 2 drains, 1 in the right upper quadrant and 1 in the left lower quadrant. Patient did well post surgery. Able to discontinue drains, patient able to advance diet to soft, having passing gas and having bowel movements, denies any further pain, repeat imaging showed resolution. Patient was stable for discharge home. FOLLOW UP: Patient has appointment for follow-up, Dr. Bustamante, on 10/26/2021 (wed)or if unable to get 10/28/2021 (fri) . Patient to complete 5 more days of oral antibiotics for total of 10 days treatment. MIGUEL PEDERSEN MD Oct 21, 2021 09:25
[2021-10-21] MEDS ORDERED: AMOX1TAB12 PO (09:58)
[2021-10-21] MEDS ORDERED: LACT1CAP13 PO (09:58)
[2021-10-21 16:20] VITALS: BP 135/76
== END 2021-10-21 13:30 | disposition home health service (06) | DRG 907 ==
LOC: ER 08:44 → ICU 11:54 → MS 10-16 15:19
PROVIDERS: ADMIT Internal Medicine; ATTEND Internal Medicine
PROC: 0DBJ0ZZ Excision of Appendix, Open Approach (ICD-10-PCS; 2021-10-15)
PROC: 0DBL0ZZ Excision of Transverse Colon, Open Approach (ICD-10-PCS; principal; 2021-10-15 12:30)
DX: K91.71 Accidental puncture and laceration of a digestive system organ or structure during a digestive system procedure (principal); K63.1 Perforation of intestine (nontraumatic); K65.1 Peritoneal abscess; K56.7 Ileus, unspecified; N39.0 Urinary tract infection, site not specified; R18.8 Other ascites; I10 Essential (primary) hypertension; J44.9 Chronic obstructive pulmonary disease, unspecified; F17.210 Nicotine dependence, cigarettes, uncomplicated; E87.6 Hypokalemia; K66.0 Peritoneal adhesions (postprocedural) (postinfection); Y83.8 Other surgical procedures as the cause of abnormal reaction of the patient, or of later complication, without mention of misadventure at the time of the procedure; Y73.8 Miscellaneous gastroenterology and urology devices associated with adverse incidents, not elsewhere classified
CPT/HCPCS: 36415; 74177; 80053; 81001; 83605; 83690; 83880; 85025; 85027; 85610; 85730; 87040; 87070; 87075; 87077; 87086; 87186; 93005; 99285; A4217; C9113; G0378; J0131; J1100; J1170; J1650; J2001; J2405; J2543; J2550; J3010; J3490; J7030; J7040; J7070; J7120; Q9965; 88305; C9290; J3480

== ENCOUNTER → 2024-02-25 | Outpatient (CLI) | payer OTHER ==
[~2024-02-25] MED LIST: AMOX1TAB12 PO; LACT1CAP14 PO
== END | disposition home or self-care (01) ==
LOC: RAD 11:34
PROVIDERS: ATTEND Chiropractor
DX: M19.021 Primary osteoarthritis, right elbow (principal); M25.421 Effusion, right elbow; M25.721 Osteophyte, right elbow
CPT/HCPCS: 73070-RT